=== PATIENT | male | born 1950 | race Caucasian/White ===

== ENCOUNTER → 2016-03-10 | Outpatient (CLI) | payer MEDICARE, OTHER ==
--- NOTE | 2016-03-10 17:09 | MR ---
EXAMINATION TYPE: MR femur/thigh RT wo con DATE OF EXAM: 03/10/2016 12:07 PM COMPARISON: None available HISTORY: 66-year-old male Other osteomyelitis, lower leg, right. Stump. TECHNIQUE: Multiplanar, multisequence images of the right femur were obtained. IV contrast was not ad ministered as the patient was in extreme pain and unable to complete the exam. FINDINGS: There is right above the knee amputation. There is some soft tissue irregularity with abnormal soft t issue thickening seen along the mid to posterior margin of the stump extending from the skin surface down to the underlying osteotomy margin. Axial images suggest anterior cortical loss along the distal femur. There is underlying abnormal T1 w eighted low signal and irregular low T1 weighted signal extending within the intramedullary cavity to the mid femoral shaft level. Corresponding increased T2 signal within the intramedullary space. Ther e is extensive edematous change within the surrounding soft tissues and musculature of the quadriceps extending up to the lateral aspect of the subtrochanteric level. Along the lateral aspect of the osteotomy margin adjacent to the apparent cortical loss, series 601 a xial image 4, there may be some subperiosteal abscess formation measuring 1.7 cm AP dimension. More c onfluent areas of soft tissue edema and fluid are present along the mid to distal third femoral shaft . IMPRESSION: 1. Right-sided AKA with suggestion of some ulceration along the mid to posterior aspect of the stump. Abnormal soft tissue signal extends deep to the underlying osteotomy margin where there is cortical bone loss highly suggestive of osteomyelitis. 2. Abnormal marrow signal extends up the right femur to the mid shaft level suggesting contiguous inf ection and there may be a small 1.7 cm periosteal abscess near the lateral osteotomy margin. 3. Some confluent areas of fluid along the distal third femoral shaft probably reactive to adjacent i nfection. 4. Prominent myositis, reactive vs infectious, of the quadriceps musculature extending up to the late ral subtrochanteric level.
== END | disposition home or self-care (01) ==
LOC: RADMRIMAIN 11:10
PROVIDERS: ATTEND Surgery Vascular Surgery
DX: M60.861 Other myositis, right lower leg (principal)

== ENCOUNTER → 2016-04-03 | Outpatient (CLI) | payer MEDICARE, OTHER | END | disposition home or self-care (01) | LOC: LABWHC1 13:50 | PROVIDERS: ATTEND Surgery Vascular Surgery | DX: Z01.818 Encounter for other preprocedural examination (principal) | CPT/HCPCS: 36415; 93005 ==

== ENCOUNTER 2018-03-15 15:44 | Inpatient (IN) | payer MEDICARE, OTHER ==
[2018-03-15] MEDS ORDERED: MAGNESIUM SULFATE-D5W PMX 1 GM in DEXTROSE/WATER 1 100ML.BAG IVPB STA (16:09)
[2018-03-15] MEDS ORDERED: AZITHROMYCIN 500 MG in SODIUM CHLORIDE 0.9% 250 ML IVPB STA (16:09)
[2018-03-15] MEDS ORDERED: ALBUTEROL NEBULIZED 2.5 MG/3 ML INHALATION STA ×3 (16:09→21:22)
[2018-03-15] MEDS ORDERED: IPRATROPIUM 0.5 MG/2.5 ML NEBU INHALATION STA ×3 (16:09→21:22)
[2018-03-15] MEDS ORDERED: SODIUM CHLORIDE 0.9% 1,000 ML IV STA (16:09)
--- NOTE | 2018-03-15 16:21 | ED ---
General Adult HPI - General Chief complaint: Shortness of Breath Stated complaint: Diff breathing Time Seen by Provider: 03/15/18 15:53 Source: patient Mode of arrival: wheelchair Limitations: no limitations - History of Present Illness Initial comments: Dictation was produced using [employer] dictation software. please excuse any grammatical, word or spelling errors. Chief Complaint: 68-year-old male presents with 2 days of worsening shortness of breath. History of Present Illness: Patient is 68-year-old male. Patient's chronic tobacco user. Patient states that 2-3 days ago he began having severe shortness of breath. Today, worse prompting him to call the emergency department. Patient states that his son came home with a unspecified pulmonary infection. HPI Limited secondary to acute respiratory distress. Patient denies any pain complaints at this time. Unable to obtain givenacuterespiratorydistress. PHYSICAL EXAM: General Impression: Alert and oriented x3, in severe respiratory distress HEENT: Normocephalic atraumatic, extra-ocular movements intact, pupils equal and reactive to light bilaterally, dry mucous membranes Cardiovascular: Heart regular rate and rhythm, S1&S2 audible, no murmurs, rubs or gallops Chest: Severely diminished lung sounds bilaterally Abdomen: Bowel sounds present, abdomen soft, non-tender, non-distended, no organomegaly Musculoskeletal: no peripheral edema Motor: Moves all extremities grossly. Right lower extremity amputation Neurological: CN II-XII grossly intact, no focal motor or sensory deficits noted Skin: Intact with no visualized rashes ED course: 68-year-old male presents with severe respiratory distress. Signs upon arrival shows respiratory rate of 134. Patient is 70s on room air. He is 92 with 15 L nonrebreather. Hemodynamically stable. Patient having severe retractions. Patient placed immediately on BiPAP. EMS provide patient with a breathing treatment however unable to tolerate secondary to severe respiratory distress. Rapid portable chest x-ray obtained there is no evidence of pneumothoraces. There is some blunting of bilateral costophrenic angles. Patient given breathing treatment, magnesium, steroids patient given 500 mg of azithromycin.Laboratory evaluation obtained. Leukocytosis of 14.7. Rest of CBC unremarkable. Coag panel unremarkable. D-dimer 1.83. Venous blood gas shows pH of 7.41, pCO2 29, bicarb of 18. Metabolic panel was obtained. Patient had a mild anion gap acidosis. Sodium 136. No elevation of renal markers. Creatinine kinase of 1470. Troponin 0.059. Given the patient had elevated troponin and he was started on heparin. CT angioma did not identify any pulmonary emboli. He did have mild ascending aortic aneurysm. Discussed patient case with radiologist hone operator Dr. Escobar for concerns of ascending aortic aneurysm under pulmonary emboli protocol. Radiologist did not feel that patient's imaging studies reflected aortic dissection. Patient given 3 breathing treatments [id number]. Patient appears much more comfortable. He is moving all beats still wheezing. Given that patient still showing signs of respiratory distress we will place him in the intensive care unit for respiratory support and intensive care management. Discussed patient case with Vanessa nurse practitioner for [facility] who requests Dr. Gardiner as a larry car operator. Discussed patient case with Dr. Gardiner who is willing to accept the patient to the intensive care unit. EKG interpretation: Ventricular rate 124, sinus tachycardia, AL interval 162, care is 82, QTc 436. No AL prolongation, no QTC prolongation, no ST or T-wave changes noted. . Overall, this EKG is unremarkable - Related Data Home Medications Medication Instructions Recorded Confirmed Albuterol Inhaler [Ventolin Hfa 2 puff INHALATION RT-Q4H PRN 09/12/15 03/15/18 Inhaler] Albuterol Nebulized [Ventolin 2.5 mg INHALATION RT-QID PRN 03/15/18 03/15/18 Nebulized] Fluticasone/Salmeterol [Advair 1 puff INHALATION RT-BID 03/15/18 03/15/18 500-50 Diskus] Nystatin 100,000 Unit/ml Susp 500,000 unit PO QID 03/15/18 03/15/18 [Mycostatin Oral Susp] Umeclidinium [place] [Incruse 1 puff INHALATION RT-DAILY 03/15/18 03/15/18 Ellipta] Allergies Allergy/AdvReac Type Severity Reaction Status Date / Time mesalamine [From Asacol] AdvReac Nausea & Verified 03/13/16 14:21 Vomiting & Diarrhea metronidazole [From Flagyl] AdvReac Nausea & Verified 03/13/16 14:21 Vomiting & Diarrhea Review of Systems ROS Statement: Those systems with pertinent positive or pertinent negative responses have been documented in the HPI. ROS Other: All systems not noted in ROS Statement are negative. Past Medical History Past Medical History: Deep Vein Thrombosis (DVT), GI Bleed Additional Past Medical History / Comment(s): colitis, recurring hernias, broken back,rt.stump wound History of Any Multi-Drug Resistant Organisms: None Reported Past Surgical History: Hernia Repair Additional Past Surgical History / Comment(s): right AKA, left inguinal hernia sx, IVC filter Past Anesthesia/Blood Transfusion Reactions: No Reported Reaction Past Psychological History: No Psychological Hx Reported Smoking Status: Former smoker Past Alcohol Use History: None Reported Past Drug Use History: None Reported - Past Family History Father Additional Family Medical History / Comment(s): artificial heart valves, rheumatic fever. General Exam Limitations: no limitations Course Vital Signs 03/15/18 03/15/18 03/15/18 15:46 15:50 16:00 Temperature 98.2 F Pulse Rate 134 H Respiratory 18 24 24 Rate Blood Pressure 142/115 142/115 O2 Sat by Pulse 73 L 83 L 98 Oximetry 03/15/18 03/15/18 03/15/18 16:10 16:15 16:20 Temperature Pulse Rate 135 H 141 H 144 H Respiratory 28 H 46 H 26 H Rate Blood Pressure 126/101 126/101 O2 Sat by Pulse 97 98 Oximetry 03/15/18 03/15/18 03/15/18 16:30 16:32 16:40 Temperature Pulse Rate 144 H Respiratory 22 Rate Blood Pressure 126/101 136/107 O2 Sat by Pulse 98 97 Oximetry 03/15/18 03/15/18 03/15/18 16:43 16:50 17:00 Temperature Pulse Rate 144 H 142 H 147 H Respiratory Rate Blood Pressure 136/107 136/107 O2 Sat by Pulse 97 95 Oximetry 03/15/18 03/15/18 03/15/18 17:10 17:20 17:23 Temperature Pulse Rate 151 H 141 H 140 H Respiratory 39 H Rate Blood Pressure 125/94 125/94 O2 Sat by Pulse 94 L 98 Oximetry 03/15/18 03/15/18 03/15/18 17:30 17:40 17:50 Temperature Pulse Rate 141 H Respiratory Rate Blood Pressure 125/94 123/90 123/90 O2 Sat by Pulse 96 95 96 Oximetry 03/15/18 03/15/18 03/15/18 17:57 18:00 18:13 Temperature Pulse Rate 156 H 125 H 132 H Respiratory 45 H 41 H Rate Blood Pressure 123/90 O2 Sat by Pulse 95 Oximetry 03/15/18 03/15/18 03/15/18 18:30 18:34 18:46 Temperature Pulse Rate 126 H 149 H 132 H Respiratory 43 H 34 H Rate Blood Pressure 104/91 O2 Sat by Pulse Oximetry 03/15/18 03/15/18 18:55 19:00 Temperature Pulse Rate 124 H 123 H Respiratory 34 H Rate Blood Pressure 110/96 O2 Sat by Pulse 98 Oximetry Medical Decision Making - Lab Data Result diagrams: 03/15/18 17:10 03/15/18 17:10 Lab Results 03/15/18 03/15/18 03/15/18 Range/Units 17:10 17:10 17:10 WBC 14.7 H (3.8-10.6) k/uL RBC 5.59 (4.30-5.90) m/uL Hgb 16.4 (13.0-17.5) gm/dL Hct 51.6 (39.0-53.0) % MCV 92.4 (80.0-100.0) fL MCH 29.3 (25.0-35.0) pg MCHC 31.7 (31.0-37.0) g/dL RDW 14.9 (11.5-15.5) % Plt Count 177 (150-450) k/uL Neutrophils % 94 % Lymphocytes % 3 % Monocytes % 2 % Eosinophils % 0 % Basophils % 0 % Neutrophils # 13.8 H (1.3-7.7) k/uL Lymphocytes # 0.4 L (1.0-4.8) k/uL Monocytes # 0.3 (0-1.0) k/uL Eosinophils # 0.1 (0-0.7) k/uL Basophils # 0.0 (0-0.2) k/uL PT 11.2 (9.0-12.0) sec INR 1.1 (<1.2) APTT 23.1 (22.0-30.0) sec D-Dimer 1.83 H (<0.60) mg/L FEU VBG pH 7.41 (7.31-7.41) VBG pCO2 29 L (37-51) mmHg VBG HCO3 18 L (24-28) mmol/L Sodium (137-145) mmol/L Potassium (3.5-5.1) mmol/L Chloride (98-107) mmol/L Carbon Dioxide (22-30) mmol/L Anion Gap mmol/L BUN (9-20) mg/dL Creatinine (0.66-1.25) mg/dL Est GFR (CKD-EPI)AfAm (>60 ml/min/1.73 sqM) Est GFR (CKD-EPI)NonAf (>60 ml/min/1.73 sqM) Glucose (74-99) mg/dL Plasma Lactic Acid Lambert (0.7-2.0) mmol/L Calcium (8.4-10.2) mg/dL Magnesium (1.6-2.3) mg/dL Total Bilirubin (0.2-1.3) mg/dL AST (17-59) U/L ALT (21-72) U/L Alkaline Phosphatase (38-126) U/L Total Creatine Kinase (55-170) U/L CK-MB (CK-2) (0.0-2.4) ng/mL CK-MB (CK-2) Rel Index Troponin I (0.000-0.034) ng/mL NT-Pro-B Natriuret Pep pg/mL Total Protein (6.3-8.2) g/dL Albumin (3.5-5.0) g/dL 03/15/18 03/15/18 03/15/18 Range/Units 17:10 17:10 18:10 WBC (3.8-10.6) k/uL RBC (4.30-5.90) m/uL Hgb (13.0-17.5) gm/dL Hct (39.0-53.0) % MCV (80.0-100.0) fL MCH (25.0-35.0) pg MCHC (31.0-37.0) g/dL RDW (11.5-15.5) % Plt Count (150-450) k/uL Neutrophils % % Lymphocytes % % Monocytes % % Eosinophils % % Basophils % % Neutrophils # (1.3-7.7) k/uL Lymphocytes # (1.0-4.8) k/uL Monocytes # (0-1.0) k/uL Eosinophils # (0-0.7) k/uL Basophils # (0-0.2) k/uL PT (9.0-12.0) sec INR (<1.2) APTT (22.0-30.0) sec D-Dimer (<0.60) mg/L FEU VBG pH (7.31-7.41) VBG pCO2 (37-51) mmHg VBG HCO3 (24-28) mmol/L Sodium 136 L (137-145) mmol/L Potassium 4.7 (3.5-5.1) mmol/L Chloride 105 (98-107) mmol/L Carbon Dioxide 19 L (22-30) mmol/L Anion Gap 12 mmol/L BUN 21 H (9-20) mg/dL Creatinine 0.61 L (0.66-1.25) mg/dL Est GFR (CKD-EPI)AfAm >90 (>60 ml/min/1.73 sqM) Est GFR (CKD-EPI)NonAf >90 (>60 ml/min/1.73 sqM) Glucose 78 (74-99) mg/dL Plasma Lactic Acid Lambert (0.7-2.0) mmol/L Calcium 8.7 (8.4-10.2) mg/dL Magnesium 2.0 (1.6-2.3) mg/dL Total Bilirubin 1.5 H (0.2-1.3) mg/dL AST 58 (17-59) U/L ALT 37 (21-72) U/L Alkaline Phosphatase 63 (38-126) U/L Total Creatine Kinase 1470 H* (55-170) U/L CK-MB (CK-2) 7.8 H (0.0-2.4) ng/mL CK-MB (CK-2) Rel Index 0.5 Troponin I 0.059 H* (0.000-0.034) ng/mL NT-Pro-B Natriuret Pep 451 pg/mL Total Protein 6.6 (6.3-8.2) g/dL Albumin 3.7 (3.5-5.0) g/dL 03/15/18 Range/Units 19:04 WBC (3.8-10.6) k/uL RBC (4.30-5.90) m/uL Hgb (13.0-17.5) gm/dL Hct (39.0-53.0) % MCV (80.0-100.0) fL MCH (25.0-35.0) pg MCHC (31.0-37.0) g/dL RDW (11.5-15.5) % Plt Count (150-450) k/uL Neutrophils % % Lymphocytes % % Monocytes % % Eosinophils % % Basophils % % Neutrophils # (1.3-7.7) k/uL Lymphocytes # (1.0-4.8) k/uL Monocytes # (0-1.0) k/uL Eosinophils # (0-0.7) k/uL Basophils # (0-0.2) k/uL PT (9.0-12.0) sec INR (<1.2) APTT (22.0-30.0) sec D-Dimer (<0.60) mg/L FEU VBG pH (7.31-7.41) VBG pCO2 (37-51) mmHg VBG HCO3 (24-28) mmol/L Sodium (137-145) mmol/L Potassium (3.5-5.1) mmol/L Chloride (98-107) mmol/L Carbon Dioxide (22-30) mmol/L Anion Gap mmol/L BUN (9-20) mg/dL Creatinine (0.66-1.25) mg/dL Est GFR (CKD-EPI)AfAm (>60 ml/min/1.73 sqM) Est GFR (CKD-EPI)NonAf (>60 ml/min/1.73 sqM) Glucose (74-99) mg/dL Plasma Lactic Acid Lambert 1.2 (0.7-2.0) mmol/L Calcium (8.4-10.2) mg/dL Magnesium (1.6-2.3) mg/dL Total Bilirubin (0.2-1.3) mg/dL AST (17-59) U/L ALT (21-72) U/L Alkaline Phosphatase (38-126) U/L Total Creatine Kinase (55-170) U/L CK-MB (CK-2) (0.0-2.4) ng/mL CK-MB (CK-2) Rel Index Troponin I (0.000-0.034) ng/mL NT-Pro-B Natriuret Pep pg/mL Total Protein (6.3-8.2) g/dL Albumin (3.5-5.0) g/dL Critical Care Time Critical Care Time: Yes Total Critical Care Time: 31 Disposition Clinical Impression: COPD exacerbation, Respiratory failure Disposition: ADMITTED IP TO THIS HOSP Condition: Critical Referrals: Stacy Foy MD [Primary Care Provider] - 1-2 days Decision Time: 21:33
--- NOTE | 2018-03-15 16:27 | XR ---
EXAMINATION TYPE: XR chest 1V portable DATE OF EXAM: 03/15/2018 COMPARISON: NONE HISTORY: Difficulty in breathing. TECHNIQUE: Single AP portable frontal upright view of the chest is obtained. FINDINGS: There is chronic emphysematous change with increased interstitial markings in both mid govind gs and basilar regions. There is no focal air space opacity or pneumothorax seen bilaterally. There i s small right pleural effusion or pleural thickening. The cardiac silhouette size is within normal li mits with atherosclerotic change in aortic knob. The osseous structures are somewhat demineralized. IMPRESSION: Chronic emphysematous and parenchymal change is felt present bilaterally with small righ t pleural effusion suspected. No convincing evidence for suspicious acute infiltrate. Correlation wit h old outside x-ray would be beneficial.
[2018-03-15] MEDS ORDERED: LORazepam 2 MG/ML INJ IV STA ×2 (16:33→18:12)
[2018-03-15] MEDS ORDERED: DEXAMETHASONE SOD PHOSPHATE 10 MG/ML 1 ML VIAL IV STA (17:18)
[2018-03-15 17:23] LABS: Basophils % (A) 0 %; Eosinophils # (A) 0.1 k/uL (0-0.7); Eosinophils % (A) 0 %; HCT 51.6 % (39.0-53.0); HGB 16.4 gm/dL (13.0-17.5); Lymphocytes # (A) 0.4 k/uL (1.0-4.8); Lymphocytes % (A) 3 %; MCH 29.3 pg (25.0-35.0); MCHC 31.7 g/dL (31.0-37.0); MCV 92.4 fL (80.0-100.0); Mean Platelet Volume 6.5; Monocytes # (A) 0.3 k/uL (0-1.0); Monocytes % (A) 2 %; Neutrophils # (A) 13.8 k/uL (1.3-7.7); Neutrophils % (A) 94 %; Platelet Count 177 k/uL (150-450); RBC 5.59 m/uL (4.30-5.90); RDW 14.9 % (11.5-15.5); WBC 14.7 k/uL (3.8-10.6)
[2018-03-15 17:25] LABS: VBG PH 7.41 (7.31-7.41)
[2018-03-15 17:35] LABS: INR 1.1 (<1.2); Partial Thromboplastin Time 23.1 sec (22.0-30.0); Prothrombin Time 11.2 sec (9.0-12.0)
[2018-03-15 17:40] LABS: D-Dimer 1.83 mg/L FEU (<0.60)
[2018-03-15 17:58] LABS: ALT 37 U/L (21-72); AST 58 U/L (17-59); Albumin 3.7 g/dL (3.5-5.0); Alkaline Phosphatase 63 U/L (38-126); Anion Gap 12 mmol/L; Blood Urea Nitrogen 21 mg/dL (9-20); Calcium 8.7 mg/dL (8.4-10.2); Carbon Dioxide 19 mmol/L (22-30); Chloride 105 mmol/L (98-107); Glucose 78 mg/dL (74-99); Potassium 4.7 mmol/L (3.5-5.1); Sodium 136 mmol/L (137-145); Total Bilirubin 1.5 mg/dL (0.2-1.3); Total Protein 6.6 g/dL (6.3-8.2)
[2018-03-15 18:56] LABS: Creatine Kinase MB 7.8 ng/mL (0.0-2.4); Troponin I 0.059 ng/mL (0.000-0.034)
[2018-03-15] MEDS ORDERED: HEPARIN SODIUM,PORCINE 5,000 UNIT/ML 1 ML VIAL IV PRN (19:23)
[2018-03-15] MEDS ORDERED: HEPARIN SODIUM,PORCINE 10,000 UNIT/ML 1 ML VIAL IV ONE ×2 (19:23)
[2018-03-15] MEDS ORDERED: HEPARIN SOD,PORK IN 0.45% NACL 25,000 UNIT in 0.45% NACL 1 250ML.BAG IV SCH (19:30)
[2018-03-15] MEDS ORDERED: MORPHINE SULFATE 4 MG/ML SYRINGE IVP STA (21:13)
--- NOTE | 2018-03-15 21:17 | CT ---
EXAMINATION TYPE: CT angio chest DATE OF EXAM: 03/15/2018 8:46 PM COMPARISON: None HISTORY: SOB CT DLP: 455.4 mGycm Automated exposure control for dose reduction was used. CONTRAST: Contrast and with 3-D Reconstruction renderingCTA scan of the thorax is performed with IV C ontrast, patient injected with 75cc mL of Isovue 370, pulmonary embolism protocol. 3-D reconstructio ns. FINDINGS: AIRWAYS: Unremarkable. LUNGS: There are marked emphysematous changes no acute pulmonary findings PLEURAL SPACES: Negative. MEDIASTINUM: There is satisfactory enhancement of the pulmonary artery and its branches, there is no CT evidence for pulmonary embolism. No acute aortic findings, but the ascending aorta is mildly aneur ysmal measuring 4.1 cm caliber. There are no greater than 1 cm hilar or mediastinal lymph nodes. The re is no cardiomegaly or pericardial effusion. Moderately prominent coronary calcifications are prese nt. No adenopathy OTHER: No additional significant abnormality is seen. IVC caval filter noted. IMPRESSION: 1) NO ACUTE PROCESS. 2) MILD ANEURYSMAL DILATION OF THE ASCENDING AORTA. 3) CORONARY CALCIFICATIONS. 4) PROMINENT EMPHYSEMATOUS CHANGES.
[2018-03-15] MEDS ORDERED: MORPHINE SULFATE 4 MG/ML SYRINGE IM STA (21:19)
[2018-03-15] MEDS ORDERED: ASPIRIN 81 MG PO STA (21:30)
[2018-03-15] MEDS ORDERED: NALOXONE 0.4 MG/ML 1 ML VIAL IV PRN (21:33)
[2018-03-15] MEDS: HEPARIN SOD,PORK IN 0.45% NACL 25,000 UNIT in 0.45% NACL 1 250ML.BAG IV SCH (22:17)
[2018-03-16] MEDS: methylPREDNISolone SOD SUCCI 125 MG/2 ML VIAL IV SCH ×4 (02:03→18:55)
[2018-03-16] MEDS: SODIUM CHLORIDE 0.9% 1,000 ML IV SCH ×4 (02:04→22:50)
[2018-03-16] MEDS: IPRATROPIUM-ALBUTEROL 3 ML NEB INHALATION SCH ×4 (07:13→19:33)
[2018-03-16] MEDS: BUDESONIDE 0.5 MG/2 ML NEBU INHALATION SCH ×2 (07:13→19:33)
[2018-03-16] MEDS: AZITHROMYCIN 500 MG TAB PO SCH (11:09)
[2018-03-16] MEDS: FAMOTIDINE 20 MG/2 ML VIAL IV SCH ×2 (11:09→21:59)
--- NOTE | 2018-03-16 11:23 | P.HPIM ---
History of Present Illness Chief Complaint: Shortness of breath Very pleasant [id number] gentleman with a past medical history significant for COPD, comes in for above-mentioned complaints. At the time examination the patient was in the ER. He was on BiPAP. He was alert and oriented. He says that he started having symptoms of shortness of breath and cough about 2-3 days ago. He said that he got up from his son who at the same infection and the same symptoms. Yesterday the shortness of breath and cough became worse so much so that he was not able to breathe. He does call the ambulance and came to the ER for further evaluation and management. The patient says that the cough is productive of yellowish green phlegm. He does not complain of any fever or chills at home. He does not complain of any chest pain racing heart, no abdominal pain, no nausea and vomiting, no diarrhea constipation, no tingling numbness on in the extremities, no itch no rash. Patient says that he has a history of smoking long time ago but is not smoking anymore. ER course-water showed temperature 98.2 pulse 97 respiration 22 blood pressure 90/70. lab work showed WBC 14.7 hemoglobin 16.4 platelets 177 sodium 136 potassium 4.7 B1 21 creatinine 0.61 CPK level was 1470 troponin level was 0.059. CTA of the chest was done which showed no acute process, mild aneurysmal dilation of the ascending aorta, coronary calcification, prominent emphysematous changes. Patient was given antibiotics, breathing treatments, steroids, IV fluids and admitted to the hospitalist service for further evaluation and management Review of Systems All systems: negative Past Medical History Past Medical History: Deep Vein Thrombosis (DVT), GI Bleed Additional Past Medical History / Comment(s): colitis, recurring hernias, broken back,rt.stump wound History of Any Multi-Drug Resistant Organisms: None Reported Past Surgical History: Hernia Repair Additional Past Surgical History / Comment(s): right AKA, left inguinal hernia sx, IVC filter Past Anesthesia/Blood Transfusion Reactions: No Reported Reaction Past Psychological History: No Psychological Hx Reported Smoking Status: Former smoker Past Alcohol Use History: None Reported Past Drug Use History: None Reported - Past Family History Father Additional Family Medical History / Comment(s): artificial heart valves, rheumatic fever. Medications and Allergies Home Medications Medication Instructions Recorded Confirmed Type Albuterol Inhaler [Ventolin Hfa 2 puff INHALATION RT-Q4H PRN 09/12/15 03/15/18 History Inhaler] Albuterol Nebulized [Ventolin 2.5 mg INHALATION RT-QID PRN 03/15/18 03/15/18 History Nebulized] Fluticasone/Salmeterol [Advair 1 puff INHALATION RT-BID 03/15/18 03/15/18 History 500-50 Diskus] Nystatin 100,000 Unit/ml Susp 500,000 unit PO QID 03/15/18 03/15/18 History [Mycostatin Oral Susp] Umeclidinium [place] [Incruse 1 puff INHALATION RT-DAILY 03/15/18 03/15/18 History Ellipta] Allergies Allergy/AdvReac Type Severity Reaction Status Date / Time mesalamine [From Asacol] AdvReac Nausea & Verified 03/13/16 14:21 Vomiting & Diarrhea metronidazole [From Flagyl] AdvReac Nausea & Verified 03/13/16 14:21 Vomiting & Diarrhea Physical Exam Vitals: Vital Signs Temp Pulse Resp BP Pulse Ox 03/16/18 09:00 88 18 131/84 97 03/16/18 08:00 115 H 18 109/83 98 03/16/18 07:44 107 H 03/16/18 07:13 97 03/16/18 06:00 97 93/70 98 03/16/18 05:00 79 108/86 98 03/16/18 04:01 90 108/86 98 03/16/18 03:00 99 104/85 98 03/16/18 02:00 90 99/73 98 03/16/18 01:56 86 22 03/16/18 01:55 89 99/73 98 03/16/18 01:40 84 21 03/15/18 21:38 104 H 23 119/89 97 03/15/18 20:00 106 H 115/88 98 03/15/18 19:04 120 H 124/92 98 03/15/18 19:00 123 H 110/96 98 03/15/18 18:55 124 H 34 H 03/15/18 18:46 132 H 34 H 03/15/18 18:34 149 H 43 H 03/15/18 18:30 126 H 104/91 03/15/18 18:13 132 H 41 H 03/15/18 18:00 125 H 123/90 95 03/15/18 17:57 156 H 45 H 03/15/18 17:50 123/90 96 03/15/18 17:40 141 H 123/90 95 03/15/18 17:30 125/94 96 03/15/18 17:23 140 H 39 H 03/15/18 17:20 141 H 125/94 98 03/15/18 17:10 151 H 125/94 94 L 03/15/18 17:00 147 H 136/107 95 03/15/18 16:50 142 H 136/107 97 03/15/18 16:43 144 H 03/15/18 16:40 136/107 97 03/15/18 16:32 144 H 03/15/18 16:30 22 126/101 98 03/15/18 16:20 144 H 26 H 126/101 98 03/15/18 16:15 141 H 46 H 03/15/18 16:10 135 H 28 H 126/101 97 03/15/18 16:00 24 142/115 98 03/15/18 15:50 24 83 L 03/15/18 15:46 98.2 F 134 H 18 142/115 73 L Intake and Output 03/15/18 03/16/18 03/16/18 22:59 06:59 14:59 Other: Weight 60.419 kg On exam, alert and oriented x3. HEENT: Conjunctivae normal. eyes normal. NECK: No JVD. No thyroid enlargement. No LNs CARDIOVASCULAR: S1, S2 muffled. No murmur RESPIRATION: Is having rhonchi appreciated bilaterally posteriorly. ABDOMEN: Soft, nontender . No guarding. no masses palpable. No ascites, No hepatosplenomegaly.Bowel sounds heard. LEGS: He has a right AKA. No swelling on the left NERVOUS SYSTEM: Cranial N 2-12 grossly normal. Moves all 4 limbs. No focal deficits. No sensory deficit. No signs of cerebellar dysfucntion. Skin: no ulcer no rash Results CBC & Chem 7: 03/15/18 17:10 03/15/18 17:10 Labs: Abnormal Lab Results - Last 24 Hours (Table) 03/15/18 03/15/18 03/15/18 Range/Units 17:10 17:10 17:10 WBC 14.7 H (3.8-10.6) k/uL Neutrophils # 13.8 H (1.3-7.7) k/uL Lymphocytes # 0.4 L (1.0-4.8) k/uL D-Dimer 1.83 H (<0.60) mg/L FEU VBG pCO2 29 L (37-51) mmHg VBG HCO3 18 L (24-28) mmol/L Sodium (137-145) mmol/L Carbon Dioxide (22-30) mmol/L BUN (9-20) mg/dL Creatinine (0.66-1.25) mg/dL Total Bilirubin (0.2-1.3) mg/dL Total Creatine Kinase (55-170) U/L CK-MB (CK-2) (0.0-2.4) ng/mL Troponin I (0.000-0.034) ng/mL 03/15/18 03/15/18 Range/Units 17:10 18:10 WBC (3.8-10.6) k/uL Neutrophils # (1.3-7.7) k/uL Lymphocytes # (1.0-4.8) k/uL D-Dimer (<0.60) mg/L FEU VBG pCO2 (37-51) mmHg VBG HCO3 (24-28) mmol/L Sodium 136 L (137-145) mmol/L Carbon Dioxide 19 L (22-30) mmol/L BUN 21 H (9-20) mg/dL Creatinine 0.61 L (0.66-1.25) mg/dL Total Bilirubin 1.5 H (0.2-1.3) mg/dL Total Creatine Kinase 1470 H* (55-170) U/L CK-MB (CK-2) 7.8 H (0.0-2.4) ng/mL Troponin I 0.059 H* (0.000-0.034) ng/mL Assessment and Plan Assessment: Assessment - Acute respiratory failure - Acute COPD exacerbation causing respiratory failure - Rhabdomyolysis - Leukocytosis - Indeterminate troponin levels - History of DVT and GI bleed - History of colitis - History of right AKA - History of IVC filter placement Plan - We'll admit the patient ICU - Patient is on BiPAP we'll continue that. Pulmonology consulted. - Continue breathing treatments, steroids, antibiotics. - Patient's CPK levels are high. We'll continue IV fluids. We'll repeat the CPK levels - Also his troponin levels are indeterminate. Will monitor troponin levels and if high high we'll consult cardiology - We'll order for echocardiogram - Resume the patient's home medications - DVT and GI prophylaxis - We'll order for lab work in the morning - Expected length of stay more than 2 midnights - Patient is full code Time with Patient: Greater than 30
[2018-03-16 12:26] LABS: Basophils % (A) 0 %; Eosinophils % (A) 0 %; HCT 44.6 % (39.0-53.0); HGB 14.5 gm/dL (13.0-17.5); Lymphocytes # (A) 0.3 k/uL (1.0-4.8); Lymphocytes % (A) 4 %; MCH 29.7 pg (25.0-35.0); MCHC 32.6 g/dL (31.0-37.0); MCV 91.3 fL (80.0-100.0); Mean Platelet Volume 6.7; Monocytes # (A) 0.2 k/uL (0-1.0); Monocytes % (A) 2 %; Neutrophils # (A) 7.7 k/uL (1.3-7.7); Neutrophils % (A) 93 %; Platelet Count 166 k/uL (150-450); RBC 4.88 m/uL (4.30-5.90); RDW 14.8 % (11.5-15.5); WBC 8.3 k/uL (3.8-10.6)
[2018-03-16 12:37] LABS: Anion Gap 8 mmol/L; Blood Urea Nitrogen 25 mg/dL (9-20); Calcium 8.6 mg/dL (8.4-10.2); Carbon Dioxide 26 mmol/L (22-30); Chloride 105 mmol/L (98-107); Creatine Kinase 738 U/L (55-170); Glucose 99 mg/dL (74-99); Potassium 4.8 mmol/L (3.5-5.1); Sodium 139 mmol/L (137-145)
[2018-03-16 13:33] LABS: ABG Base Excess -1.1 mmol/L; ABG HCO3 24 mmol/L (21-25); ABG Oxygen Saturation 99.8 % (94-97); ABG PCO2 43 mmHg (35-45); ABG PH 7.36 (7.35-7.45); ABG PO2 188 mmHg (83-108); ABG TCO2 26 mmol/L (19-24)
--- NOTE | 2018-03-16 15:26 | P.CNPUL ---
History of Present Illness Consult date: 03/16/18 Reason for consult: dyspnea, COPD History of present illness: This is a 68-year-old male patient with known history of COPD [place] more than approximately 4 years ago. 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 The patient has advanced COPD. The patient has been oxygen dependent for many years. He has been on a combination of Advair and Incrus regarding his COPD and utilizes albuterol rescue inhaler on an as-needed basis. He is known to have ulcerative colitis and he has received several bouts of systemic steroids on outpatient basis regarding his colitis. He is not take any form of biologic agents or maintenance agents regarding his inflammatory bowel disease. 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 He claims that he quit smoking approximately a month ago. He came into the hospital because of increased cough , chest congestion, chest tightness and wheezing and he was in considerable amount of respiratory distress at time of arrival. He was placed on BiPAP at a pressure of 12/6 cm of water and FiO2 of 40%. He is feeling better. Is less short of breath. At the time of my arrival, he was still a mild degree of respiratory distress although reported that his condition was improving. Blood gases was done in emergency department with an FiO2 of 50% while him being on a BiPAP and the pH was at 7.36 with a pCO2 of 43 and pO2 of 188. Chest x-ray shows COPD and the CAT scan of the chest showed no evidence of any pulmonary embolism. 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 There was coronary calcifications. There is extensive amount of emphysematous changes bilaterally. No nausea. No vomiting. No abdominal pain. No altered mentation. No angina. No palpitation. No cardiac rhythm disturbance. Review of Systems Constitutional: Reports fatigue, Reports weakness, Reports weight loss Eyes: denies as per HPI, denies blurred vision, denies bulging eye, denies decreased vision, denies diplopia, denies discharge, denies dry eye, denies irritation, denies itching, denies pain, denies photophobia, denies loss of peripheral vision, denies loss of vision, denies tunnel vision/blind spots Ears: deny: decreased hearing, ear discharge, earache, tinnitus Ears, nose, mouth and throat: Denies headache, Denies sore throat Cardiovascular: Reports claudication, Reports decreased exercise tolerance, Reports dyspnea on exertion, Reports shortness of breath Respiratory: Reports cough, Reports dyspnea, Reports wheezing Gastrointestinal: Denies abdominal pain, Denies diarrhea, Denies nausea, Denies vomiting Genitourinary: Reports as per HPI Musculoskeletal: Reports as per HPI, Reports prior amputations Musculoskeletal: left: ankle pain, ankle stiffness, ankle swelling, as per HPI, elbow pain, elbow stiffness, elbow swelling, foot pain, foot stiffness, foot swelling, hand pain, hand stiffness, hand swelling, hip pain, hip stiffness, hip swelling, knee pain, knee stiffness, knee swelling, shoulder pain, shoulder stiffness, shoulder swelling, wrist pain, wrist stiffness, wrist swelling Integumentary: Denies pruritus, Denies rash Neurological: Reports as per HPI, Reports gait dysfunction Psychiatric: Reports as per HPI Endocrine: Reports as per HPI Hematologic/Lymphatic: Reports as per HPI Allergic/Immunologic: Reports as per HPI Past Medical History Past Medical History: COPD, GI Bleed Additional Past Medical History / Comment(s): COPD, ulcerative colitis, right inguinal hernia and umbilical hernia, chronic steroid dependence for UC, L2,3,4 lumbar spine disease and chronic back pain, 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 History of Any Multi-Drug Resistant Organisms: None Reported Past Surgical History: Hernia Repair Additional Past Surgical History / Comment(s): right AKA, left inguinal hernia sx, IVC filter Past Anesthesia/Blood Transfusion Reactions: No Reported Reaction Past Psychological History: No Psychological Hx Reported Smoking Status: Former smoker (quit smoking 15 years ago and he has 30 PPD and he has no alcoholism) Past Alcohol Use History: None Reported Past Drug Use History: None Reported - Past Family History Father Additional Family Medical History / Comment(s): artificial heart valves, rheumatic fever. Medications and Allergies Home Medications Medication Instructions Recorded Confirmed Type Albuterol Inhaler [Ventolin Hfa 2 puff INHALATION RT-Q4H PRN 09/11/03/15/18 History Inhaler] Albuterol Nebulized [Ventolin 2.5 mg INHALATION RT-QID PRN 03/15/18 03/15/18 History Nebulized] Fluticasone/Salmeterol [Advair 1 puff INHALATION RT-BID 03/15/18 03/15/18 History 500-50 Diskus] Nystatin 100,000 Unit/ml Susp 500,000 unit PO QID 03/15/18 03/15/18 History [Mycostatin Oral Susp] Umeclidinium [place] [Incruse 1 puff INHALATION RT-DAILY 03/15/18 03/15/18 History Ellipta] Allergies Allergy/AdvReac Type Severity Reaction Status Date / Time mesalamine [From Asacol] AdvReac Nausea & Verified 03/13/16 14:21 Vomiting & Diarrhea metronidazole [From Flagyl] AdvReac Nausea & Verified 03/13/16 14:21 Vomiting & Diarrhea Physical Exam Vitals: Vital Signs Temp Pulse Resp BP Pulse Ox 03/16/18 11:57 105 H 03/16/18 11:43 105 H 03/16/18 09:00 88 18 131/84 97 03/16/18 08:00 115 H 18 109/83 98 03/16/18 07:44 107 H 03/16/18 07:13 97 03/16/18 06:00 97 93/70 98 03/16/18 05:00 79 108/86 98 03/16/18 04:01 90 108/86 98 03/16/18 03:00 99 104/85 98 03/16/18 02:00 90 99/73 98 03/16/18 01:56 86 22 03/16/18 01:55 89 99/73 98 03/16/18 01:40 84 21 03/15/18 21:38 104 H 23 119/89 97 03/15/18 20:00 106 H 115/88 98 03/15/18 19:04 120 H 124/92 98 03/15/18 19:00 123 H 110/96 98 03/15/18 18:55 124 H 34 H 03/15/18 18:46 132 H 34 H 03/15/18 18:34 149 H 43 H 03/15/18 18:30 126 H 104/91 03/15/18 18:13 132 H 41 H 03/15/18 18:00 125 H 123/90 95 03/15/18 17:57 156 H 45 H 03/15/18 17:50 123/90 96 03/15/18 17:40 141 H 123/90 95 03/15/18 17:30 125/94 96 03/15/18 17:23 140 H 39 H 03/15/18 17:20 141 H 125/94 98 03/15/18 17:10 151 H 125/94 94 L 03/15/18 17:00 147 H 136/107 95 03/15/18 16:50 142 H 136/107 97 03/15/18 16:43 144 H 03/15/18 16:40 136/107 97 03/15/18 16:32 144 H 03/15/18 16:30 22 126/101 98 03/15/18 16:20 144 H 26 H 126/101 98 03/15/18 16:15 141 H 46 H 03/15/18 16:10 135 H 28 H 126/101 97 03/15/18 16:00 24 142/115 98 03/15/18 15:50 24 83 L 03/15/18 15:46 98.2 F 134 H 18 142/115 73 L Intake and Output 03/15/18 03/16/18 03/16/18 22:59 06:59 14:59 Other: Weight 60.419 kg Patient is a mild degree of respiratory distress even while waiting the BiPAP. He however thousand and overall condition is improved since he is around the emergency department. No altered mentation. He is able to communicate. Head exam was generally normal. There was no scleral icterus or corneal arcus. Mucous membranes were moist. Neck was supple and without jugular venous distension, thyromegaly, or carotid bruits. Carotids were easily palpable bilaterally. There was no adenopathy. Lungs sounds are diminished bilaterally along with prolongation of expiratory phase of breathing and scattered expiratory wheezes throughout the lung ferro bilaterally. Cardiac exam revealed the PMI to be normally situated and sized. The rhythm was regular and no extrasystoles were noted during several minutes of auscultation. The first and second heart sounds were normal and physiologic splitting of the second heart sound was noted. There were no murmurs, rubs, clicks, or gallops. Abdominal exam revealed normal bowel sounds. The abdomen was soft, non-tender, and without masses, organomegaly, or appreciable enlargement of the abdominal aorta. Extremities revealed an above-knee amputation on the right lower extremity. Left lower extremity shows palpable pulses. No cyanosis. No clubbing. Examination of the skin revealed no evidence of significant rashes, suspicious appearing nevi or other concerning lesions. Neurologically awake and alert and is no focal neurological deficits. Results - Laboratory Findings CBC and BMP: 03/16/18 11:31 03/16/18 11:31 PT/INR, D-dimer PT 11.2 sec (9.0-12.0) 03/15/18 17:10 INR 1.1 (<1.2) 03/15/18 17:10 D-Dimer 1.83 mg/L FEU (<0.60) H 03/15/18 17:10 Abnormal lab findings: Abnormal Labs 03/15/18 03/15/18 03/15/18 17:10 17:10 17:10 WBC 14.7 H Neutrophils # 13.8 H Lymphocytes # 0.4 L D-Dimer 1.83 H VBG pCO2 29 L VBG HCO3 18 L Sodium Carbon Dioxide BUN Creatinine Total Bilirubin Total Creatine Kinase CK-MB (CK-2) Troponin I 03/15/18 03/15/18 17:10 18:10 WBC Neutrophils # Lymphocytes # D-Dimer VBG pCO2 VBG HCO3 Sodium 136 L Carbon Dioxide 19 L BUN 21 H Creatinine 0.61 L Total Bilirubin 1.5 H Total Creatine Kinase 1470 H* CK-MB (CK-2) 7.8 H Troponin I 0.059 H* - Diagnostic Findings Chest x-ray: image reviewed CT scan - chest: image reviewed Assessment and Plan Plan: Assessment 1 acute dyspnea and acute hypoxic respiratory failure secondary to COPD exacerbation. The patient's CAT scan of the chest shows no acute abnormalities aren't and COPD and the patient has no pneumonia or pulmonary embolism. Influenza screen is been negative. 2 acute BiPAP dependent respiratory failure secondary to COPD exacerbation 3 advanced COPD with chronic hypoxic respiratory failure and the patient is demented on oxygen 2 L per minute nasal cannula 4 history of above-knee and position of the right lower extremity due to vascular complications 5 history of IVC filter placement without known history of pulmonary embolism 6 history of a limit 3 bowel disease/ulcerative colitis currently not receiving any Biologics 7 previous history of GI bleeds 8 history of smoking 9 minimal troponin leak without any significant EKG changes. Plan We'll admit this patient to the intensive care unit. We'll put the patient on DuoNeb neb regimen [id number]. Continue Perforomist and Pulmicort nebulized treatments twice a day. IV Solu Medrol 60 mg every 6 hours. Oral Zithromax. Smoking cessation counseling was done. Continue fluid resuscitation. Continue BiPAP for respiratory support. We'll make further adjustments in the BiPAP if needed. For now the blood gas seems to be adequate and the patient has a adequate acid-base status and adequate oxygenation. Chest x-ray was reviewed. CT of the chest was reviewed. We'll continue to follow. The patient has some nonspecific troponin leaks. Currently the patient is on IV heparin. We'll leave the management of heparin and abnormal troponin is up to cardiology. Predominant hospitalization essentially related to COPD exacerbation. Echo of the heart will be ordered for tomorrow.
[2018-03-16] MEDS: LORazepam 2 MG/ML INJ IV PRN ×2 (15:29→20:36)
[2018-03-16] MEDS ORDERED: NALOXONE 0.4 MG/ML 1 ML VIAL IV PRN (17:40)
--- NOTE | 2018-03-16 18:06 | ECHOF ---
Referral Reason:increased trops MEASUREMENTS -------- HEIGHT: 172.7 cm WEIGHT: 60.3 kg BP: 134/84 RVIDd: 3.4 cm (< 3.3) IVSd: 1.3 cm (0.6 - 1.1) LVIDd: 3.9 cm (3.9 - 5.3) LVPWd: 1.2 cm (0.6 - 1.1) IVSs: 1.5 cm LVIDs: 2.8 cm LVPWs: 1.5 cm LA Diam: 2.3 cm (2.7 - 3.8) Ao Diam: 3.2 cm (2.0 - 3.7) AV Cusp: 2.1 cm (1.5 - 2.6) EPSS: 0.4 cm MV E Jas: 0.86 m/s MV DecT: 149 ms MV A Jas: 0.59 m/s MV E/A Ratio: 1.46 RAP: 5.00 mmHg RVSP: 44.07 mmHg MV EF SLOPE: 75.75 mm/s (70 - 150) MV EXCURSION: 2.36 cm (> 18.000) FINDINGS -------- Sinus rhythm. This was a technically adequate study. The left ventricular size is normal. There is mild concentric left ventricular hypertrophy. Overa ll left ventricular systolic function is normal with, an EF between 60 - 65 %. The right ventricle is mildly enlarged. The left atrial size is normal. The right atrium is normal in size. The aortic valve is trileaflet and appears structurally normal. The mitral valve is normal. Mild mitral regurgitation is present. [id number] tricuspid regurgitation present. There is mild pulmonary hypertension. The right ventricular systolic pressure, as measured by Doppler, is 44.07mmHg. The pulmonic valve was not well visualized. There is no pulmonic regurgitation present. The aortic root size is normal. Normal inferior vena cava with normal inspiratory collapse consistent with estimated right atrial pre ssure of 5 mmHg. There is no pericardial effusion. CONCLUSIONS -------- 1. Sinus rhythm. 2. This was a technically adequate study. 3. The left ventricular size is normal. 4. There is mild concentric left ventricular hypertrophy. 5. Overall left ventricular systolic function is normal with, an EF between 60 - 65 %. 6. The right ventricle is mildly enlarged. 7. The left atrial size is normal. 8. The aortic valve is trileaflet and appears structurally normal. 9. The mitral valve is normal. 10. Mild mitral regurgitation is present. 11. Uuay-cb-uqgaslvf tricuspid regurgitation present. 12. There is mild pulmonary hypertension. 13. The pulmonic valve was not well visualized. 14. The aortic root size is normal. 15. Normal inferior vena cava with normal inspiratory collapse consistent with estimated right atrial pressure of 5 mmHg. 16. There is no pericardial effusion. BIOINFORMATICS SUPPORT SPECIALIST: SABINA Huggins
[2018-03-16 18:17] LABS: Glucose,Whole Blood 98 mg/dL (75-99)
[2018-03-16] MEDS: FORMOTEROL FUMARATE 20 MCG/2 ML NEBU INHALATION SCH (19:33)
[2018-03-16] MEDS: HEPARIN SOD,PORK IN 0.45% NACL 25,000 UNIT in 0.45% NACL 1 250ML.BAG IV SCH (21:59)
[2018-03-16] MEDS: IPRATROPIUM-ALBUTEROL 3 ML NEB INHALATION PRN (23:17)
[2018-03-17] MEDS: methylPREDNISolone SOD SUCCI 125 MG/2 ML VIAL IV SCH ×4 (02:09→19:15)
[2018-03-17] MEDS: LORazepam 2 MG/ML INJ IV PRN ×4 (02:36→21:38)
[2018-03-17 02:50] LABS: Basophils % (A) 0 %; Eosinophils # (A) 0.1 k/uL (0-0.7); Eosinophils % (A) 0 %; HCT 41.4 % (39.0-53.0); HGB 13.6 gm/dL (13.0-17.5); Lymphocytes # (A) 0.3 k/uL (1.0-4.8); Lymphocytes % (A) 3 %; MCHC 32.9 g/dL (31.0-37.0); MCV 91.1 fL (80.0-100.0); Mean Platelet Volume 6.4; Monocytes # (A) 0.4 k/uL (0-1.0); Monocytes % (A) 3 %; Neutrophils % (A) 93 %; Platelet Count 162 k/uL (150-450); RBC 4.55 m/uL (4.30-5.90); RDW 14.9 % (11.5-15.5); WBC 11.9 k/uL (3.8-10.6)
[2018-03-17] MEDS: IPRATROPIUM-ALBUTEROL 3 ML NEB INHALATION PRN (03:17)
[2018-03-17 04:26] LABS: Anion Gap 7 mmol/L; Blood Urea Nitrogen 28 mg/dL (9-20); Calcium 8.6 mg/dL (8.4-10.2); Carbon Dioxide 24 mmol/L (22-30); Chloride 108 mmol/L (98-107); Glucose 100 mg/dL (74-99); Magnesium 2.7 mg/dL (1.6-2.3); Phosphorus 3.3 mg/dL (2.5-4.5); Potassium 4.5 mmol/L (3.5-5.1); Sodium 139 mmol/L (137-145)
[2018-03-17] MEDS: BUDESONIDE 0.5 MG/2 ML NEBU INHALATION SCH ×2 (07:15→19:39)
[2018-03-17] MEDS: IPRATROPIUM-ALBUTEROL 3 ML NEB INHALATION SCH ×4 (07:15→19:39)
[2018-03-17] MEDS: FORMOTEROL FUMARATE 20 MCG/2 ML NEBU INHALATION SCH ×2 (07:15→19:39)
[2018-03-17] MEDS: FAMOTIDINE 20 MG/2 ML VIAL IV SCH ×2 (09:11→20:09)
[2018-03-17] MEDS: AZITHROMYCIN 500 MG TAB PO SCH (09:11)
[2018-03-17] MEDS: SODIUM CHLORIDE 0.9% 1,000 ML IV SCH ×3 (09:20→23:50)
--- NOTE | 2018-03-17 09:21 | XR ---
EXAMINATION TYPE: XR chest 1V DATE OF EXAM: 03/17/2018 COMPARISON: 03/15/2018 INDICATION: COPD TECHNIQUE: Single frontal view of the chest is obtained. FINDINGS: The heart size is normal. The pulmonary vasculature is normal. Linear opacities are at the right lung base compatible with atelectasis. There is a 1.1 cm nodular de nsity in the upper outer left chest may be a granuloma present on recent chest films. There are no ol caro comparison studies for confirmation. This should be followed over the course of 2 years to confir m stability. IMPRESSION: 1. Mild plate atelectasis right lung base. 2. Nodular density left upper lobe. This should be confirmed as stable over the course of 2 years. Fo llow-up chest x-ray in 3 months is recommended.
--- NOTE | 2018-03-17 12:14 | P.PN ---
Subjective Was still on BiPAP Says that his breathing is better, cough is better Was sleeping this morning Objective - Vital Signs Vital signs: Vital Signs Temp 98 F 03/17/18 08:00 Pulse 122 H 03/17/18 11:49 Resp 29 H 03/17/18 10:00 BP 150/93 03/17/18 10:00 Pulse Ox 93 L 03/17/18 10:00 Intake & Output 03/16/18 03/17/18 03/17/18 18:59 06:59 18:59 Intake Total 150.848 4676.365 720 Output Total 300 250 Balance 362.249 3664.365 470 Weight 70.2 kg Intake: IV 120 1440 720 Sodium Chloride 0.9% 1, 120 1440 720 000 ml @ 120 mls/hr IV . Q8H20M BENJA Rx#:[id number] Intake, IV Titration 115.396 81.365 Amount Heparin Sod,Pork in 0.45% 115.396 81.365 NaCl 25,000 unit In 0.45 % NaCl 1 250ml.bag @ 12 UNITS/KG/HR 7.25 mls/hr IV .Q24H BENJA Rx#: [id number] Output: Urine 300 250 Other: Voiding Method Urinal Urinal # Voids 0 1 # Bowel Movements 1 - Exam On exam, alert and oriented x3. HEENT: Conjunctivae normal. eyes normal. NECK: No JVD. No thyroid enlargement. No LNs CARDIOVASCULAR: S1, S2 muffled. No murmur RESPIRATION: Wheezing bilaterally posteriorly but better than yesterday ABDOMEN: Soft, nontender . No guarding. no masses palpable. No ascites, No hepatosplenomegaly.Bowel sounds heard. LEGS: No edema. no swelling NERVOUS SYSTEM: Cranial N 2-12 grossly normal. Moves all 4 limbs. No focal deficits. No sensory deficit. No signs of cerebellar dysfucntion. Skin: no ulcer no rash Joints: No active swelling. No inflammation. Lymphatic system. No LN neck axilla or groin. - Labs CBC & Chem 7: 03/17/18 02:34 03/17/18 02:34 Labs: Abnormal Lab Results - Last 24 Hours (Table) 03/16/18 03/16/18 03/16/18 Range/Units 11:31 11:31 13:23 WBC (3.8-10.6) k/uL Neutrophils # (1.3-7.7) k/uL Lymphocytes # 0.3 L (1.0-4.8) k/uL APTT (22.0-30.0) sec ABG pO2 188 H (83-108) mmHg ABG Total CO2 26 H (19-24) mmol/L ABG O2 Saturation 99.8 H (94-97) % Chloride (98-107) mmol/L BUN 25 H (9-20) mg/dL Creatinine 0.55 L (0.66-1.25) mg/dL Glucose (74-99) mg/dL Magnesium (1.6-2.3) mg/dL Creatine Kinase 738 H (55-170) U/L 03/16/18 03/17/18 03/17/18 Range/Units 19: 02:34 02:34 WBC 11.9 H (3.8-10.6) k/uL Neutrophils # 11.0 H (1.3-7.7) k/uL Lymphocytes # 0.3 L (1.0-4.8) k/uL APTT 45.7 H (22.0-30.0) sec ABG pO2 (83-108) mmHg ABG Total CO2 (19-24) mmol/L ABG O2 Saturation (94-97) % Chloride 108 H (98-107) mmol/L BUN 28 H (9-20) mg/dL Creatinine 0.49 L (0.66-1.25) mg/dL Glucose 100 H (74-99) mg/dL Magnesium 2.7 H (1.6-2.3) mg/dL Creatine Kinase (55-170) U/L 03/17/18 Range/Units 02:34 WBC (3.8-10.6) k/uL Neutrophils # (1.3-7.7) k/uL Lymphocytes # (1.0-4.8) k/uL APTT 49.3 H (22.0-30.0) sec ABG pO2 (83-108) mmHg ABG Total CO2 (19-24) mmol/L ABG O2 Saturation (94-97) % Chloride (98-107) mmol/L BUN (9-20) mg/dL Creatinine (0.66-1.25) mg/dL Glucose (74-99) mg/dL Magnesium (1.6-2.3) mg/dL Creatine Kinase (55-170) U/L Assessment and Plan Assessment: Assessment - Acute respiratory failure - Acute COPD exacerbation causing respiratory failure - Rhabdomyolysis - Leukocytosis - Indeterminate troponin levels - History of DVT and GI bleed - History of colitis - History of right AKA - History of IVC filter placement Plan - Continue BiPAP and further management as per I's recommendations - Is on steroids and breathing treatments - Continue current management - We'll continue to monitor
--- NOTE | 2018-03-17 14:12 | P.PN ---
Subjective Progress Note Date: 03/17/18 This is a 68-year-old male patient with known history of COPD [place] more than approximately 4 [place]. Since then he has not seen a rn hedis. The patient has advanced COPD. The patient has been oxygen dependent for many years. He has been on a combination of Advair and Incrus regarding his COPD and utilizes albuterol rescue inhaler on an as-needed basis. He is known to have ulcerative colitis and he has received several bouts of systemic steroids on outpatient basis regarding his colitis. He is not take any form of biologic agents or maintenance agents regarding his inflammatory bowel disease. 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 He claims that he quit smoking approximately a month ago. He came into the hospital because of increased cough , chest congestion, chest tightness and wheezing and he was in considerable amount of respiratory distress at time of arrival. He was placed on BiPAP at a pressure of 12/6 cm of water and FiO2 of 40%. He is feeling better. Is less short of breath. At the time of my arrival, he was still a mild degree of respiratory distress although reported that his condition was improving. Blood gases was done in emergency department with an FiO2 of 50% while him being on a BiPAP and the pH was at 7.36 with a pCO2 of 43 and pO2 of 188. Chest x-ray shows COPD and the CAT scan of the chest showed no evidence of any pulmonary embolism. 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 There was coronary calcifications. There is extensive amount of emphysematous changes bilaterally. No nausea. No vomiting. No abdominal pain. No altered mentation. No angina. No palpitation. No cardiac rhythm disturbance. On 03/17/2018, the patient continues to be quite short of breath secondary to his underlying COPD exacerbation. His requiring BiPAP for respiratory support. Despite being aggressively treated with a combination of bronchodilators steroids and antibiotics, the patient continues to BE short of breath and he has a very limited exercise capacity as the patient gets short of breath even being moved to a bedside commode. No chest pain. No nausea or vomiting. No altered mentation. Chest x-ray shows atelectatic changes in the right lung base. There is a left upper lobe nodular density which is a calcified granuloma. No fever. No chills. No leukocytosis. No other complaints otherwise. He remains on IV heparin. Objective - Vital Signs Vital signs: Vital Signs Temp 97.9 F 03/17/18 12:00 Pulse 97 03/17/18 13:00 Resp 29 H 03/17/18 13:00 BP 135/86 03/17/18 13:00 Pulse Ox 94 L 03/17/18 13:00 Intake & Output 03/16/18 03/17/18 03/17/18 18:59 06:59 18:59 Intake Total 228.051 2145.365 960 Output Total 300 250 Balance 808.021 4640.365 710 Weight 70.2 kg Intake: IV 120 1440 960 Sodium Chloride 0.9% 1, 120 1440 960 000 ml @ 120 mls/hr IV . Q8H20M [facility] Rx#:[id number] Intake, IV Titration 115.396 81.365 Amount Heparin Sod,Pork in 0.45% 115.396 81.365 NaCl 25,000 unit In 0.45 % NaCl 1 250ml.bag @ 12 UNITS/KG/HR 7.25 mls/hr IV .Q24H [facility] Rx#: [id number] Output: Urine 300 250 Other: Voiding Method Urinal Urinal # Voids 0 1 # Bowel Movements 1 - Exam Patient is a mild degree of respiratory distress even while waiting the BiPAP. He however thousand and overall condition is improved since he is around the emergency department. No altered mentation. He is able to communicate. Head exam was generally normal. There was no scleral icterus or corneal arcus. Mucous membranes were moist. Neck was supple and without jugular venous distension, thyromegaly, or carotid bruits. Carotids were easily palpable bilaterally. There was no adenopathy. Lungs sounds are diminished bilaterally along with prolongation of expiratory phase of breathing and scattered expiratory wheezes throughout the lung ferro bilaterally. Cardiac exam revealed the PMI to be normally situated and sized. The rhythm was regular and no extrasystoles were noted during several minutes of auscultation. The first and second heart sounds were normal and physiologic splitting of the second heart sound was noted. There were no murmurs, rubs, clicks, or gallops. Abdominal exam revealed normal bowel sounds. The abdomen was soft, non-tender, and without masses, organomegaly, or appreciable enlargement of the abdominal aorta. Extremities revealed an above-knee amputation on the right lower extremity. Left lower extremity shows palpable pulses. No cyanosis. No clubbing. Examination of the skin revealed no evidence of significant rashes, suspicious appearing nevi or other concerning lesions. Neurologically awake and alert and is no focal neurological deficits. - Labs CBC & Chem 7: 03/17/18 02:34 03/17/18 02:34 Labs: Abnormal Lab Results - Last 24 Hours (Table) 03/16/18 03/17/18 03/17/18 Range/Units 19:10 02:34 02:34 WBC 11.9 H (3.8-10.6) k/uL Neutrophils # 11.0 H (1.3-7.7) k/uL Lymphocytes # 0.3 L (1.0-4.8) k/uL APTT 45.7 H (22.0-30.0) sec Chloride 108 H (98-107) mmol/L BUN 28 H (9-20) mg/dL Creatinine 0.49 L (0.66-1.25) mg/dL Glucose 100 H (74-99) mg/dL Magnesium 2.7 H (1.6-2.3) mg/dL 03/17/18 Range/Units 02:34 WBC (3.8-10.6) k/uL Neutrophils # (1.3-7.7) k/uL Lymphocytes # (1.0-4.8) k/uL APTT 49.3 H (22.0-30.0) sec Chloride (98-107) mmol/L BUN (9-20) mg/dL Creatinine (0.66-1.25) mg/dL Glucose (74-99) mg/dL Magnesium (1.6-2.3) mg/dL Assessment and Plan Plan: Assessment 1 acute dyspnea and acute hypoxic respiratory failure secondary to COPD exacerbation. The patient's CAT scan of the chest shows no acute abnormalities aren't and COPD and the patient has no pneumonia or pulmonary embolism. Influenza screen is been negative. The CAT scan is showing a calcified urinoma the left upper lobe. Otherwise there is no evidence of pneumonia. The patient continues to be symptomatic bronchospastic and wheezy secondary to his underlying COPD exacerbation. He continues to require BiPAP for respiratory support. Some limited improvement only over the past 24 hours. 2 acute BiPAP dependent respiratory failure secondary to COPD exacerbation 3 advanced COPD with chronic hypoxic respiratory failure and the patient is demented on oxygen 2 L per minute nasal cannula 4 history of above-knee and position of the right lower extremity due to vascular complications 5 history of IVC filter placement without known history of pulmonary embolism 6 history of a limit 3 bowel disease/ulcerative colitis currently not receiving any Biologics 7 previous history of GI bleeds 8 history of smoking 9 minimal troponin leak without any significant EKG changes. 10 left upper lobe calcified granuloma Plan Patient is still struggling with his breathing. The patient continues to be symptomatic and short of breath. The patient continues to bronchospastic. I'm going to continue the patient on DuoNeb neb regimen [id number]. Continue Perforomist and Pulmicort nebulized treatments twice a day. IV Solu Medrol 60 mg every 6 hours. Oral Zithromax. Smoking cessation counseling was done. Continue fluid resuscitation. Continue BiPAP for respiratory support. May introduce some Xanax for anxiety. This continued IV heparin switch this patient to subcu heparin for DVT prophylaxis. We'll continue to follow. Echo shows no acute abnormalities. Condition is critical. May require intubation if there is any further worsening his shortness of breath. He'll be kept in ICU for 24 hours.
[2018-03-17] MEDS: HEPARIN SODIUM,PORCINE 5,000 UNIT/ML 1 ML VIAL SQ SCH (19:16)
[2018-03-17 21:06] LABS: ABG Base Excess 1.4 mmol/L; ABG HCO3 28 mmol/L (21-25); ABG PCO2 61 mmHg (35-45); ABG PH 7.28 (7.35-7.45); ABG PO2 97 mmHg (83-108); ABG TCO2 30 mmol/L (19-24)
--- NOTE | 2018-03-17 23:39 | XR ---
EXAM: XR Chest, 1 View CLINICAL HISTORY: ITS.REASON XR Reason: SOB TECHNIQUE: Frontal view of the chest. COMPARISON: 03/17/18 earlier time chest x-ray IMPRESSION: Redemonstration of a nodule in the left upper lobe measuring 8 mm. Unchanged increased right lower lobe opacity.
--- NOTE | 2018-03-17 23:52 | XR ---
EXAM: XR Chest, 1 View CLINICAL HISTORY: ITS.REASON XR Reason: post intubation TECHNIQUE: Frontal view of the chest. COMPARISON: Chest x-ray 03/17/18 earlier time IMPRESSION: ET tube terminates 4.8 cm from the letty. NG tube tip projects off the [id number] but appears to enter into the stomach.
[2018-03-18 00:04] LABS: ABG Base Excess 3.9 mmol/L; ABG HCO3 29 mmol/L (21-25); ABG PCO2 51 mmHg (35-45); ABG PH 7.36 (7.35-7.45); ABG PO2 >400 mmHg (83-108); ABG TCO2 31 mmol/L (19-24)
[2018-03-18] MEDS: NOREPINEPHRINE 4 MG in SODIUM CHLORIDE 0.9% 250 ML IV SCH ×2 (01:50→04:16)
[2018-03-18] MEDS: methylPREDNISolone SOD SUCCI 125 MG/2 ML VIAL IV SCH ×5 (01:51→23:47)
[2018-03-18] MEDS: CHLORHEXIDINE GLUCONATE 15 ML CUP MUCOUS MEM SCH ×3 (01:52→22:04)
[2018-03-18] MEDS: HEPARIN SODIUM,PORCINE 5,000 UNIT/ML 1 ML VIAL SQ SCH ×4 (01:52→23:47)
[2018-03-18 02:03] VITALS: BP 132/80
[2018-03-18] MEDS: LORazepam 2 MG/ML INJ IV PRN ×2 (02:18→20:20)
[2018-03-18 04:18] LABS: ABG Base Excess 5.2 mmol/L; ABG HCO3 30 mmol/L (21-25); ABG Oxygen Saturation 99.8 % (94-97); ABG PCO2 45 mmHg (35-45); ABG PH 7.43 (7.35-7.45); ABG PO2 191 mmHg (83-108); ABG TCO2 31 mmol/L (19-24)
[2018-03-18 05:09] LABS: Basophils % (A) 0 %; Eosinophils % (A) 0 %; HCT 37.1 % (39.0-53.0); Lymphocytes # (A) 0.2 k/uL (1.0-4.8); Lymphocytes % (A) 1 %; MCH 29.4 pg (25.0-35.0); MCHC 32.2 g/dL (31.0-37.0); MCV 91.2 fL (80.0-100.0); Mean Platelet Volume 6.6; Monocytes # (A) 0.6 k/uL (0-1.0); Monocytes % (A) 4 %; Neutrophils # (A) 16.6 k/uL (1.3-7.7); Neutrophils % (A) 95 %; Platelet Count 168 k/uL (150-450); RBC 4.07 m/uL (4.30-5.90); RDW 14.9 % (11.5-15.5); WBC 17.6 k/uL (3.8-10.6)
[2018-03-18 05:19] LABS: Anion Gap 2 mmol/L; Blood Urea Nitrogen 21 mg/dL (9-20); Calcium 8.1 mg/dL (8.4-10.2); Carbon Dioxide 30 mmol/L (22-30); Chloride 110 mmol/L (98-107); Glucose 141 mg/dL (74-99); Magnesium 2.5 mg/dL (1.6-2.3); Phosphorus 2.2 mg/dL (2.5-4.5); Potassium 4.3 mmol/L (3.5-5.1); Sodium 142 mmol/L (137-145)
[2018-03-18 06:13] LABS: Glucose,Whole Blood 135 mg/dL (75-99)
[2018-03-18] MEDS: INSULIN ASPART (NovoLOG) 100 UNIT/ML VIAL SQ SCH ×4 (06:13→23:52)
[2018-03-18] MEDS ORDERED: Phosphorus Replacement Protoco 1 EACH MISC MISCELLANE PRN (06:49)
[2018-03-18] MEDS ORDERED: SODIUM PHOSPHATE 10 MMOL in SODIUM CHLORIDE 0.9% 100 ML IVPB ONE (07:00)
[2018-03-18] MEDS: PROPOFOL 1,000 MG in EMPTY BAG 1 BAG IV SCH ×6 (07:05→22:05)
[2018-03-18] MEDS: IPRATROPIUM-ALBUTEROL 3 ML NEB INHALATION SCH ×4 (07:25→19:12)
[2018-03-18] MEDS: BUDESONIDE 0.5 MG/2 ML NEBU INHALATION SCH ×2 (07:25→19:14)
[2018-03-18] MEDS: FORMOTEROL FUMARATE 20 MCG/2 ML NEBU INHALATION SCH ×2 (07:25→19:14)
--- NOTE | 2018-03-18 08:21 | XR ---
EXAMINATION TYPE: XR chest 1V portable DATE OF EXAM: 03/18/2018 COMPARISON: Prior chest x-ray 03/17/2018 HISTORY: Intubated TECHNIQUE: Single frontal view of the chest is obtained. FINDINGS: Endotracheal tube and NG tube are overlying appropriate positions. Probable calcified gran uloma in the left upper lobe, there are cardiac leads. No evident pneumothorax. There may be small le ft pleural effusion. Patchy basilar density is noted. Aorta is dense. Heart size is stable. Underlyin g emphysematous changes again seen. IMPRESSION: Basilar atelectasis.
[2018-03-18] MEDS: FAMOTIDINE 20 MG/2 ML VIAL IV SCH ×2 (09:01→22:04)
[2018-03-18] MEDS: SODIUM CHLORIDE 0.9% 1,000 ML IV SCH ×2 (09:02→16:00)
[2018-03-18] MEDS: AZITHROMYCIN 500 MG TAB PO SCH (11:11)
[2018-03-18 11:47] LABS: Glucose,Whole Blood 139 mg/dL (75-99)
--- NOTE | 2018-03-18 12:10 | P.PN ---
Subjective Progress Note Date: 03/18/18 Principal diagnosis: Acute hypoxic and hypercapnic respiratory failure secondary to COPD exacerbation. This is a 68-year-old male patient with known history of COPD [place] more than approximately 4 years [place]. Since then he has not seen a an/ssn 2 4 operator. The patient has advanced COPD. The patient has been oxygen dependent for many years. He has been on a combination of Advair and Incrus regarding his COPD and utilizes albuterol rescue inhaler on an as-needed basis. He is known to have ulcerative colitis and he has received several bouts of systemic steroids on outpatient basis regarding his colitis. He is not take any form of biologic agents or maintenance agents regarding his inflammatory bowel disease. 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 He claims that he quit smoking approximately a month ago. He came into the hospital because of increased cough , chest congestion, chest tightness and wheezing and he was in considerable amount of respiratory distress at time of arrival. He was placed on BiPAP at a pressure of 12/6 cm of water and FiO2 of 40%. He is feeling better. Is less short of breath. At the time of my arrival, he was still a mild degree of respiratory distress although reported that his condition was improving. Blood gases was done in emergency department with an FiO2 of 50% while him being on a BiPAP and the pH was at 7.36 with a pCO2 of 43 and pO2 of 188. Chest x-ray shows COPD and the CAT scan of the chest showed no evidence of any pulmonary embolism. 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 There was coronary calcifications. There is extensive amount of emphysematous changes bilaterally. No nausea. No vomiting. No abdominal pain. No altered mentation. No angina. No palpitation. No cardiac rhythm disturbance. On 03/17/2018, the patient continues to be quite short of breath secondary to his underlying COPD exacerbation. His requiring BiPAP for respiratory support. Despite being aggressively treated with a combination of bronchodilators steroids and antibiotics, the patient continues to BE short of breath and he has a very limited exercise capacity as the patient gets short of breath even being moved to a bedside commode. No chest pain. No nausea or vomiting. No altered mentation. Chest x-ray shows atelectatic changes in the right lung base. There is a left upper lobe nodular density which is a calcified granuloma. No fever. No chills. No leukocytosis. No other complaints otherwise. He remains on IV heparin. On 03/18/2018, I'm seeing the patient for follow-up, and apparently last night, his respiratory condition deteriorated, patient was noted to be profoundly short of breath, and he was using his accessory muscles in spite of being on BiPAP. Hence the patient was intubated, and he is now on mechanical ventilation. His ventilator settings are assist control rate of 24 tidal volume of 400 FiO2 of 35% and PEEP of 5. Patient is also on propofol at 50 mcg/ kg/minute. Norepinephrine at 0.02 mcg/kg/m, patient is quite sedated, and I have no plans to interrupt sedation this morning since the patient was just extubated last night. His chest x-ray was reviewed, and it showed mostly bibasilar atelectasis. CBC showed leukocytosis with WBC count of 17.6 hemoglobin is 12 electrolytes were noted to be normal and normal renal profile noted. ABG this morning on 50% showed pO2 of 191 pCO2 of 45 pH of 7.43, hence his FiO2 was cut down to 35%. All his meds were reviewed, he is presently on DuoNeb, Zithromax, Pulmicort, Pepcid, Perforomist, heparin subcu, NovoLog insulin, methylprednisolone, lorazepam, propofol and norepinephrine. Objective - Vital Signs Vital signs: Vital Signs Temp 96.7 F L 03/18/18 07:00 Pulse 68 03/18/18 11:55 Resp 24 03/18/18 08:00 BP 132/80 03/17/18 23:30 Pulse Ox 100 03/18/18 08:00 Intake & Output 03/17/18 03/18/18 03/18/18 18:59 06:59 18:59 Intake Total 1440 1540.223 727.281 Output Total 600 825 285 Balance 840 715.223 442.281 Weight 71.5 kg 71.5 kg Intake: IV 1440 1440 600 Sodium Chloride 0.9% 1, 1440 1440 600 000 ml @ 120 mls/hr IV . Q8H20M [facility] Rx#:[id number] Intake, IV Titration 100.223 127.281 Amount Norepinephrine 4 mg In 0.223 38.743 Sodium Chloride 0.9% 250 ml @ 0.05 MCG/KG/MIN 13. 37 mls/hr IV .Q19H [facility] Rx #:[id number] Propofol 1,000 mg In 100.00 37.538 Empty Bag 1 bag @ Titrate IV .Q0M [facility] Rx#: [id number] Sodium Phosphate 10 mmol 51 In Sodium Chloride 0.9% 100 ml @ 51.667 mls/hr IVPB ONCE ONE Rx#: [id number] Output: Urine 600 825 285 Other: Voiding Method Urinal Indwelling Catheter Indwelling Catheter # Voids 1 0 # Bowel Movements 1 ABP, PAP, CO, CI - Last Documented Arterial Blood Pressure 98/54 - Exam Physical Exam: Revealed a 68-year-old white male, sedated, intubated, on propofol, in no distress. Head: Atraumatic normocephalic. HEENT:[Neck is supple.] [No neck masses.] [No thyromegaly.] [No JVD.] PERRLA, EOMI, endotracheal tube and orogastric tube are intact. Chest: [Diminished breath sound bilaterally, no crackles or rhonchi or wheezes.. ] Cardiac Exam: [Normal S1 and S2, no S3 gallop, no murmur.] Abdomen: [Soft, nontender, no megaly, no rebound, no guarding, normal bowel sounds.] Extremities: [No clubbing, no edema, no cyanosis.] There is evidence of right above-knee amputation noted to Neurological Exam: Sedated, could not be assessed. Psychiatric: Sedated cannot be addressed. Lymphatics: No lymphadenopathy. Skin: No rashes. - Labs CBC & Chem 7: 03/18/18 04:45 03/18/18 04:45 Labs: Abnormal Lab Results - Last 24 Hours (Table) 03/17/18 03/18/18 03/18/18 Range/Units 21:00 00:01 04:18 WBC (3.8-10.6) k/uL RBC (4.30-5.90) m/uL Hgb (13.0-17.5) gm/dL Hct (39.0-53.0) % Neutrophils # (1.3-7.7) k/uL Lymphocytes # (1.0-4.8) k/uL ABG pH 7.28 L (7.35-7.45) ABG pCO2 61 H 51 H (35-45) mmHg ABG pO2 >400 H 191 H (83-108) mmHg ABG HCO3 28 H 29 H 30 H (21-25) mmol/L ABG Total CO2 30 H 31 H 31 H (19-24) mmol/L ABG O2 Saturation 100.0 H 99.8 H (94-97) % Chloride (98-107) mmol/L BUN (9-20) mg/dL Creatinine (0.66-1.25) mg/dL Glucose (74-99) mg/dL POC Glucose (mg/dL) (75-99) mg/dL Calcium (8.4-10.2) mg/dL Phosphorus (2.5-4.5) mg/dL Magnesium (1.6-2.3) mg/dL 03/18/18 03/18/18 03/18/18 Range/Units 04:45 04:45 06:11 WBC 17.6 H (3.8-10.6) k/uL RBC 4.07 L (4.30-5.90) m/uL Hgb 12.0 L (13.0-17.5) gm/dL Hct 37.1 L (39.0-53.0) % Neutrophils # 16.6 H (1.3-7.7) k/uL Lymphocytes # 0.2 L (1.0-4.8) k/uL ABG pH (7.35-7.45) ABG pCO2 (35-45) mmHg ABG pO2 (83-108) mmHg ABG HCO3 (21-25) mmol/L ABG Total CO2 (19-24) mmol/L ABG O2 Saturation (94-97) % Chloride 110 H (98-107) mmol/L BUN 21 H (9-20) mg/dL Creatinine 0.46 L (0.66-1.25) mg/dL Glucose 141 H (74-99) mg/dL POC Glucose (mg/dL) 135 H (75-99) mg/dL Calcium 8.1 L (8.4-10.2) mg/dL Phosphorus 2.2 L (2.5-4.5) mg/dL Magnesium 2.5 H (1.6-2.3) mg/dL 03/18/18 Range/Units 11:45 WBC (3.8-10.6) k/uL RBC (4.30-5.90) m/uL Hgb (13.0-17.5) gm/dL Hct (39.0-53.0) % Neutrophils # (1.3-7.7) k/uL Lymphocytes # (1.0-4.8) k/uL ABG pH (7.35-7.45) ABG pCO2 (35-45) mmHg ABG pO2 (83-108) mmHg ABG HCO3 (21-25) mmol/L ABG Total CO2 (19-24) mmol/L ABG O2 Saturation (94-97) % Chloride (98-107) mmol/L BUN (9-20) mg/dL Creatinine (0.66-1.25) mg/dL Glucose (74-99) mg/dL POC Glucose (mg/dL) 139 H (75-99) mg/dL Calcium (8.4-10.2) mg/dL Phosphorus (2.5-4.5) mg/dL Magnesium (1.6-2.3) mg/dL Assessment and Plan Assessment: Impression: 1 acute hypoxic and hypercapnic respiratory failure secondary to acute exacerbation of COPD. 2 failed BiPAP therapy, presently on mechanical ventilation. 3 advanced COPD with chronic hypoxic respiratory failure 4 left upper lobe calcified granuloma 5 minimal troponin leak, felt to be not clinically significant. 6 history of inferior vena cava filter placement, questionable history of pulmonary embolism or DVT. 7 history of right above-knee amputation 8 history of tobacco dependence syndrome. Recommendation: Continue ventilatory support, bronchodilators, address nutritional support via enteral feeding, GI and DVT prophylaxis, empiric antibiotics, counseling regarding smoking cessation, patient is clearly not ready to be weaned at this point, he was just extubated last night, I have reviewed his chart, his medications, and I have recommended that we address her nutrition today, we will address weaning trials possibly in the next 24 hours and interruption of sedation on a daily basis after that. Patient is critically ill, presently on DuoNeb updrafts, Perforomist, Pulmicort, IV Solu- Medrol, and we will continue to follow. Critical care time is 35 minutes. Time with Patient: Greater than 30
[2018-03-18 18:21] LABS: Glucose,Whole Blood 121 mg/dL (75-99)
[2018-03-18] MEDS: IPRATROPIUM-ALBUTEROL 3 ML NEB INHALATION PRN (21:11)
[2018-03-18] MEDS: fentaNYL (PF) 1,000 MCG in SODIUM CHLORIDE 0.9% 80 ML IV SCH (22:04)
[2018-03-18 23:52] LABS: Glucose,Whole Blood 142 mg/dL (75-99)
--- NOTE | 2018-03-18 23:58 | P.PN ---
Subjective pt is 68 yo m with severe and advanced COPD, pt failed bipap therapy and needed mechanical intubation ,pt is been followed closely in the icu BY critical pulmonary care team . pt is on steroid and zithromax. pt is on iv fluid also , pt has leukocytosis . Objective - Vital Signs Vital signs: Vital Signs Temp 98 F 03/18/18 12:00 Pulse 68 03/18/18 12:00 Resp 24 03/18/18 12:00 BP 132/80 03/17/18 23:30 Pulse Ox 100 03/18/18 12:00 Intake & Output 03/17/18 03/18/18 03/18/18 18:59 06:59 18:59 Intake Total 1440 7582.780 5103.164 Output Total 600 825 415 Balance 840 715.223 820.164 Weight 71.5 kg 71.5 kg Intake: IV 1440 1440 960 Sodium Chloride 0.9% 1, 1440 1440 960 000 ml @ 120 mls/hr IV . Q8H20M [facility] Rx#:[id number] Intake, IV Titration 100.223 275.164 Amount Norepinephrine 4 mg In 0.223 38.743 Sodium Chloride 0.9% 250 ml @ 0.05 MCG/KG/MIN 13. 37 mls/hr IV .Q19H [facility] Rx #:[id number] Propofol 1,000 mg In 100.00 134.421 Empty Bag 1 bag @ Titrate IV .Q0M [facility] Rx#: [id number] Sodium Phosphate 10 mmol 102 In Sodium Chloride 0.9% 100 ml @ 51.667 mls/hr IVPB ONCE ONE Rx#: [id number] Output: Urine 600 825 415 Other: Voiding Method Urinal Indwelling Catheter Indwelling Catheter # Voids 1 0 # Bowel Movements 1 ABP, PAP, CO, CI - Last Documented Arterial Blood Pressure 104/55 - Exam -GENERAL: The patient is intubated and sedated HEENT: Pupils are round and equally reacting to light. EOMI. No scleral icterus. No conjunctival pallor. Normocephalic, atraumatic. No pharyngeal erythema. No thyromegaly. CARDIOVASCULAR: S1 and S2 present. No murmurs, rubs, or gallops. -PULMONARY: Chest is clear to auscultation, scattered wheezing ABDOMEN: Soft, nontender, nondistended, normoactive bowel sounds. No palpable organomegaly. MUSCULOSKELETAL: No joint swelling or deformity. EXTREMITIES: No cyanosis, clubbing, or pedal edema. NEUROLOGICAL: Gross neurological examination did not reveal any focal deficits. SKIN: No rashes. - Labs CBC & Chem 7: 03/18/18 04:45 03/18/18 04:45 Labs: Abnormal Lab Results - Last 24 Hours (Table) 03/17/18 03/18/18 03/18/18 Range/Units 21:00 00:01 04:18 WBC (3.8-10.6) k/uL RBC (4.30-5.90) m/uL Hgb (13.0-17.5) gm/dL Hct (39.0-53.0) % Neutrophils # (1.3-7.7) k/uL Lymphocytes # (1.0-4.8) k/uL ABG pH 7.28 L (7.35-7.45) ABG pCO2 61 H 51 H (35-45) mmHg ABG pO2 >400 H 191 H (83-108) mmHg ABG HCO3 28 H 29 H 30 H (21-25) mmol/L ABG Total CO2 30 H 31 H 31 H (19-24) mmol/L ABG O2 Saturation 100.0 H 99.8 H (94-97) % Chloride (98-107) mmol/L BUN (9-20) mg/dL Creatinine (0.66-1.25) mg/dL Glucose (74-99) mg/dL POC Glucose (mg/dL) (75-99) mg/dL Calcium (8.4-10.2) mg/dL Phosphorus (2.5-4.5) mg/dL Magnesium (1.6-2.3) mg/dL 03/18/18 03/18/18 03/18/18 Range/Units 04:45 04:45 06:11 WBC 17.6 H (3.8-10.6) k/uL RBC 4.07 L (4.30-5.90) m/uL Hgb 12.0 L (13.0-17.5) gm/dL Hct 37.1 L (39.0-53.0) % Neutrophils # 16.6 H (1.3-7.7) k/uL Lymphocytes # 0.2 L (1.0-4.8) k/uL ABG pH (7.35-7.45) ABG pCO2 (35-45) mmHg ABG pO2 (83-108) mmHg ABG HCO3 (21-25) mmol/L ABG Total CO2 (19-24) mmol/L ABG O2 Saturation (94-97) % Chloride 110 H (98-107) mmol/L BUN 21 H (9-20) mg/dL Creatinine 0.46 L (0.66-1.25) mg/dL Glucose 141 H (74-99) mg/dL POC Glucose (mg/dL) 135 H (75-99) mg/dL Calcium 8.1 L (8.4-10.2) mg/dL Phosphorus 2.2 L (2.5-4.5) mg/dL Magnesium 2.5 H (1.6-2.3) mg/dL 03/18/18 Range/Units 11:45 WBC (3.8-10.6) k/uL RBC (4.30-5.90) m/uL Hgb (13.0-17.5) gm/dL Hct (39.0-53.0) % Neutrophils # (1.3-7.7) k/uL Lymphocytes # (1.0-4.8) k/uL ABG pH (7.35-7.45) ABG pCO2 (35-45) mmHg ABG pO2 (83-108) mmHg ABG HCO3 (21-25) mmol/L ABG Total CO2 (19-24) mmol/L ABG O2 Saturation (94-97) % Chloride (98-107) mmol/L BUN (9-20) mg/dL Creatinine (0.66-1.25) mg/dL Glucose (74-99) mg/dL POC Glucose (mg/dL) 139 H (75-99) mg/dL Calcium (8.4-10.2) mg/dL Phosphorus (2.5-4.5) mg/dL Magnesium (1.6-2.3) mg/dL Assessment and Plan Assessment: acute hypoxic respiratory failure severe and advance copd s/p mechanical ventilation granuloma leukocytosis , mostly reactive secondary to steroids Plan: pt remains in the icu and been followed by critical care team . c/w emperic antibiotic, breathing treatment and steroids Labs and medication were reviewed.. Continue same treatment. Continue with symptomatic treatment. Resume home medication. Monitor lytes and vitals. DVT and GI prophylaxis. Further recommendations of the clinical course of the patient DVT prophylaxis: Subcutaneous heparin GI Prophylaxis: Pepcid Prognosis is guarded
[2018-03-19] MEDS: SODIUM CHLORIDE 0.9% 1,000 ML IV SCH ×3 (00:50→16:55)
[2018-03-19 04:40] LABS: Basophils % (A) 0 %; Eosinophils % (A) 0 %; HCT 36.6 % (39.0-53.0); HGB 11.9 gm/dL (13.0-17.5); Lymphocytes # (A) 0.1 k/uL (1.0-4.8); Lymphocytes % (A) 1 %; MCH 30.2 pg (25.0-35.0); MCHC 32.5 g/dL (31.0-37.0); Mean Platelet Volume 7.1; Monocytes # (A) 0.3 k/uL (0-1.0); Monocytes % (A) 2 %; Neutrophils # (A) 13.8 k/uL (1.3-7.7); Neutrophils % (A) 97 %; Platelet Count 127 k/uL (150-450); RBC 3.94 m/uL (4.30-5.90); RDW 15.3 % (11.5-15.5); WBC 14.3 k/uL (3.8-10.6)
[2018-03-19 04:54] LABS: Anion Gap 0 mmol/L; Blood Urea Nitrogen 21 mg/dL (9-20); Calcium 7.8 mg/dL (8.4-10.2); Carbon Dioxide 30 mmol/L (22-30); Chloride 111 mmol/L (98-107); Glucose 161 mg/dL (74-99); Magnesium 2.5 mg/dL (1.6-2.3); Phosphorus 2.6 mg/dL (2.5-4.5); Potassium 3.9 mmol/L (3.5-5.1); Sodium 141 mmol/L (137-145)
[2018-03-19] MEDS: PROPOFOL 1,000 MG in EMPTY BAG 1 BAG IV SCH ×5 (05:04→20:00)
[2018-03-19] MEDS: methylPREDNISolone SOD SUCCI 125 MG/2 ML VIAL IV SCH ×3 (05:05→18:16)
[2018-03-19] MEDS ORDERED: Potassium Replacement Protocol 1 EACH MISC MISCELLANE PRN (05:06)
[2018-03-19 05:47] LABS: Glucose,Whole Blood 138 mg/dL (75-99)
[2018-03-19] MEDS ORDERED: POTASSIUM BICARBONATE/CIT AC 20 MEQ TABLET.EFF NG-TUBE SCH (06:00)
[2018-03-19] MEDS: INSULIN ASPART (NovoLOG) 100 UNIT/ML VIAL SQ SCH ×3 (06:28→18:12)
[2018-03-19 07:16] LABS: ABG Base Excess 6.4 mmol/L; ABG HCO3 31 mmol/L (21-25); ABG Oxygen Saturation 97.6 % (94-97); ABG PCO2 46 mmHg (35-45); ABG PH 7.43 (7.35-7.45); ABG PO2 89 mmHg (83-108); ABG TCO2 32 mmol/L (19-24)
[2018-03-19] MEDS: BUDESONIDE 0.5 MG/2 ML NEBU INHALATION SCH ×2 (07:19→19:41)
[2018-03-19] MEDS: IPRATROPIUM-ALBUTEROL 3 ML NEB INHALATION SCH ×4 (07:19→19:41)
[2018-03-19] MEDS: FORMOTEROL FUMARATE 20 MCG/2 ML NEBU INHALATION SCH ×2 (07:19→19:41)
[2018-03-19] MEDS: HEPARIN SODIUM,PORCINE 5,000 UNIT/ML 1 ML VIAL SQ SCH ×2 (07:53→16:53)
[2018-03-19] MEDS: FAMOTIDINE 20 MG/2 ML VIAL IV SCH ×2 (07:53→19:53)
[2018-03-19] MEDS: CHLORHEXIDINE GLUCONATE 15 ML CUP MUCOUS MEM SCH ×2 (07:54→19:53)
[2018-03-19] MEDS: AZITHROMYCIN 500 MG TAB PO SCH (07:54)
--- NOTE | 2018-03-19 09:23 | XR ---
EXAMINATION TYPE: XR chest 1V portable DATE OF EXAM: 03/19/2018 COMPARISON: Prior chest x-ray 03/18/2018 HISTORY: Intubated TECHNIQUE: Single frontal view of the chest is obtained. FINDINGS: Endotracheal tube, NG tube, calcification in left upper lobe are stable. Patchy bibasilar density is again noted. No evident pneumothorax or pleural effusion. Heart size is stable. Aorta is d ense. Patient is rotated, there are cardiac leads. There is underlying emphysematous change. IMPRESSION: Probable basilar atelectasis, correlate to exclude pneumonia.
[2018-03-19] MEDS: NOREPINEPHRINE 4 MG in SODIUM CHLORIDE 0.9% 250 ML IV SCH (09:47)
--- NOTE | 2018-03-19 11:49 | P.PN ---
Subjective Progress Note Date: 03/19/18 Principal diagnosis: Acute hypoxic and hypercapnic respiratory failure secondary to COPD exacerbation. This is a 68-year-old male patient with known history of COPD [place] more than approximately 4 years ago. Since then he has not seen a medical claims specialist. The patient has advanced COPD. The patient has been oxygen dependent for many years. He has been on a combination of Advair and Incrus regarding his COPD and utilizes albuterol rescue inhaler on an as-needed basis. He is known to have ulcerative colitis and he has received several bouts of systemic steroids on outpatient basis regarding his colitis. He is not take any form of biologic agents or maintenance agents regarding his inflammatory bowel disease. 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 He claims that he quit smoking approximately a month ago. He came into the hospital because of increased cough , chest congestion, chest tightness and wheezing and he was in considerable amount of respiratory distress at time of arrival. He was placed on BiPAP at a pressure of 12/6 cm of water and FiO2 of 40%. He is feeling better. Is less short of breath. At the time of my arrival, he was still a mild degree of respiratory distress although reported that his condition was improving. Blood gases was done in emergency department with an FiO2 of 50% while him being on a BiPAP and the pH was at 7.36 with a pCO2 of 43 and pO2 of 188. Chest x-ray shows COPD and the CAT scan of the chest showed no evidence of any pulmonary embolism. 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 There was coronary calcifications. There is extensive amount of emphysematous changes bilaterally. No nausea. No vomiting. No abdominal pain. No altered mentation. No angina. No palpitation. No cardiac rhythm disturbance. On 03/17/2018, the patient continues to be quite short of breath secondary to his underlying COPD exacerbation. His requiring BiPAP for respiratory support. Despite being aggressively treated with a combination of bronchodilators steroids and antibiotics, the patient continues to BE short of breath and he has a very limited exercise capacity as the patient gets short of breath even being moved to a bedside commode. No chest pain. No nausea or vomiting. No altered mentation. Chest x-ray shows atelectatic changes in the right lung base. There is a left upper lobe nodular density which is a calcified granuloma. No fever. No chills. No leukocytosis. No other complaints otherwise. He remains on IV heparin. On 03/18/2018, I'm seeing the patient for follow-up, and apparently last night, his respiratory condition deteriorated, patient was noted to be profoundly short of breath, and he was using his accessory muscles in spite of being on BiPAP. Hence the patient was intubated, and he is now on mechanical ventilation. His ventilator settings are assist control rate of 24 tidal volume of 400 FiO2 of 35% and PEEP of 5. Patient is also on propofol at 50 mcg/ kg/minute. Norepinephrine at 0.02 mcg/kg/m, patient is quite sedated, and I have no plans to interrupt sedation this morning since the patient was just extubated last night. His chest x-ray was reviewed, and it showed mostly bibasilar atelectasis. CBC showed leukocytosis with WBC count of 17.6 hemoglobin is 12 electrolytes were noted to be normal and normal renal profile noted. ABG this morning on 50% showed pO2 of 191 pCO2 of 45 pH of 7.43, hence his FiO2 was cut down to 35%. All his meds were reviewed, he is presently on DuoNeb, Zithromax, Pulmicort, Pepcid, Perforomist, heparin subcu, NovoLog insulin, methylprednisolone, lorazepam, propofol and norepinephrine. Patient was reevaluated today on 03/19/2018, remains in the ICU, mechanically ventilated, his ventilator settings are basically unchanged, remains on assist control rate of 24 FiO2 35%, tidal volume of 400 and PEEP of 5. Remains on A fall presently at 75 mcg/kg/m, he is also on fentanyl roughly about 25 g per hour. Slight drop in his sedation including cutting the propofol and fentanyl, patient became extremely agitated, he was struggling to breathe and he was noted to be asynchronous with the ventilator. Hence I had to sedate him again, and clearly the patient is not ready for any form of weaning at this point. Kept on a higher dose of propofol and her dose of fentanyl, he is presently off norepinephrine. Could not actually interrupt sedation enough to assess mental status today. Chest x-ray was reviewed, continues to show by basilar atelectasis, cannot rule out infiltrate/pneumonia. ABG this morning on the above settings showed a pO2 of 89 pCO2 of 46 pH of 7.43. CBC is showing leukocytosis with WBC 14.3 hemoglobin is 11.9. Electrolytes were noted to be normal, renal profile was noted to be normal. Meds were reviewed, remains on DuoNeb, Zithromax, heparin subcu, Solu-Medrol, Perforomist, and Pulmicort. Objective - Vital Signs Vital signs: Vital Signs Temp 98.6 F 03/19/18 04:00 Pulse 70 03/19/18 11:27 Resp 25 H 03/19/18 08:00 BP 132/80 03/17/18 23:30 Pulse Ox 100 03/19/18 07:00 Intake & Output 03/18/18 03/19/18 03/19/18 18:59 06:59 18:59 Intake Total 2081.679 1930.536 845.298 Output Total 650 430 165 Balance 8034.903 0757.536 680.298 Weight 71.5 kg Intake: IV 1560 1320 480 Sodium Chloride 0.9% 1, 1560 1320 480 000 ml @ 120 mls/hr IV . Q8H20M [facility] Rx#:[id number] Intake, IV Titration 361.679 200.536 165.298 Amount Norepinephrine 4 mg In 38.743 18.850 Sodium Chloride 0.9% 250 ml @ 0.05 MCG/KG/MIN 13. 37 mls/hr IV .Q19H [facility] Rx #:[id number] Propofol 1,000 mg In 220.936 200.536 114.622 Empty Bag 1 bag @ Titrate IV .Q0M [facility] Rx#: [id number] Sodium Phosphate 10 mmol 102 In Sodium Chloride 0.9% 100 ml @ 51.667 mls/hr IVPB ONCE ONE Rx#: [id number] fentaNYL (PF) 1,000 mcg 31.826 In Sodium Chloride 0.9% 80 ml @ 25 MCG/HR 2.5 mls /hr IV .Q24H [facility] Rx#: [id number] Tube Feeding 160 320 200 Other 90 Output: Urine 650 430 165 Other: Voiding Method Indwelling Catheter Indwelling Catheter Indwelling Catheter ABP, PAP, CO, CI - Last Documented Arterial Blood Pressure 95/49 - Exam Physical Exam: Revealed a 68-year-old white male, sedated, intubated, on propofol, in no distress. Noted to be extremely agitated once the propofol was cut down along with the fentanyl. Head: Atraumatic normocephalic. HEENT:[Neck is supple.] [No neck masses.] [No thyromegaly.] [No JVD.] PERRLA, EOMI, endotracheal tube and orogastric tube are intact. Chest: [Diminished breath sound bilaterally, no crackles or rhonchi or wheezes.. ] Cardiac Exam: [Normal S1 and S2, no S3 gallop, no murmur.] Abdomen: [Soft, nontender, no megaly, no rebound, no guarding, normal bowel sounds.] Extremities: [No clubbing, no edema, no cyanosis.] There is evidence of right above-knee amputation noted to Neurological Exam: Sedated, could not be assessed. Psychiatric: Sedated cannot be addressed. Lymphatics: No lymphadenopathy. Skin: No rashes. - Labs CBC & Chem 7: 03/19/18 04:05 03/19/18 04:05 Labs: Abnormal Lab Results - Last 24 Hours (Table) 03/18/18 03/18/18 03/18/18 Range/Units 11:45 18:20 23:50 WBC (3.8-10.6) k/uL RBC (4.30-5.90) m/uL Hgb (13.0-17.5) gm/dL Hct (39.0-53.0) % Plt Count (150-450) k/uL Neutrophils # (1.3-7.7) k/uL Lymphocytes # (1.0-4.8) k/uL ABG pCO2 (35-45) mmHg ABG HCO3 (21-25) mmol/L ABG Total CO2 (19-24) mmol/L ABG O2 Saturation (94-97) % Chloride (98-107) mmol/L BUN (9-20) mg/dL Creatinine (0.66-1.25) mg/dL Glucose (74-99) mg/dL POC Glucose (mg/dL) 139 H 121 H 142 H (75-99) mg/dL Calcium (8.4-10.2) mg/dL Magnesium (1.6-2.3) mg/dL 02/12/19 02/12/19 02/12/19 Range/Units 04:05 04:05 05:45 WBC 14.3 H (3.8-10.6) k/uL RBC 3.94 L (4.30-5.90) m/uL Hgb 11.9 L (13.0-17.5) gm/dL Hct 36.6 L (39.0-53.0) % Plt Count 127 L (150-450) k/uL Neutrophils # 13.8 H (1.3-7.7) k/uL Lymphocytes # 0.1 L (1.0-4.8) k/uL ABG pCO2 (35-45) mmHg ABG HCO3 (21-25) mmol/L ABG Total CO2 (19-24) mmol/L ABG O2 Saturation (94-97) % Chloride 111 H (98-107) mmol/L BUN 21 H (9-20) mg/dL Creatinine 0.46 L (0.66-1.25) mg/dL Glucose 161 H (74-99) mg/dL POC Glucose (mg/dL) 138 H (75-99) mg/dL Calcium 7.8 L (8.4-10.2) mg/dL Magnesium 2.5 H (1.6-2.3) mg/dL 03/19/18 Range/Units 07:12 WBC (3.8-10.6) k/uL RBC (4.30-5.90) m/uL Hgb (13.0-17.5) gm/dL Hct (39.0-53.0) % Plt Count (150-450) k/uL Neutrophils # (1.3-7.7) k/uL Lymphocytes # (1.0-4.8) k/uL ABG pCO2 46 H (35-45) mmHg ABG HCO3 31 H (21-25) mmol/L ABG Total CO2 32 H (19-24) mmol/L ABG O2 Saturation 97.6 H (94-97) % Chloride (98-107) mmol/L BUN (9-20) mg/dL Creatinine (0.66-1.25) mg/dL Glucose (74-99) mg/dL POC Glucose (mg/dL) (75-99) mg/dL Calcium (8.4-10.2) mg/dL Magnesium (1.6-2.3) mg/dL Microbiology - Last 24 Hours (Table) 03/18/18 11:40 Gram Stain - Preliminary Sputum Sputum Culture - Preliminary Pseudomonas spec Assessment and Plan Assessment: Impression: 1 acute hypoxic and hypercapnic respiratory failure secondary to acute exacerbation of COPD. requiring intubation and mechanical ventilation. 2 failed BiPAP therapy, remains on mechanical ventilation today 3 advanced COPD with chronic hypoxic respiratory failure 4 left upper lobe calcified granuloma 5 minimal troponin leak, felt to be not clinically significant. 6 history of inferior vena cava filter placement, questionable history of pulmonary embolism or DVT. 7 history of right above-knee amputation 8 history of tobacco dependence syndrome. Recommendation: Attempted sedation interruption today, however the patient became extremely agitated, asynchronous with mechanical ventilation, could not ventilate the patient at a lower dose of propofol and fentanyl. Hence had to go back on a higher dose of both, will continue bronchodilators, antibiotics, steroids, I strongly believe the patient has severe underlying severe emphysema , and he will be extremely difficult to wean and extubate. I would likely discussed the issue with his family members, and I will strongly recommend early tracheostomy in this patient. Patient will benefit from tracheostomy and PEG tube placement. Unless the family would agree to terminal weaning and comfort care measures. Again the patient is extremely ill, he will be extremely difficult to wean, and those issues will be discussed with family members. At this point, I have a strong feeling that the patient will require tracheostomy. Critical care time is 35 minutes Time with Patient: Greater than 30
[2018-03-19 11:56] LABS: Glucose,Whole Blood 142 mg/dL (75-99)
[2018-03-19 17:46] LABS: Glucose,Whole Blood 116 mg/dL (75-99)
--- NOTE | 2018-03-19 18:30 | P.PN ---
Subjective pt is 68 yo m with severe and advanced COPD, pt failed bipap therapy and needed mechanical intubation ,pt is been followed closely in the icu BY critical pulmonary care team . pt is on steroid and zithromax. pt is on iv fluid also , pt has leukocytosis . 03/19/2018 Patient remains in the ICU intubated. Patient had a sedation holiday today with no significant response from the patient. Patient might end up needing tracheostomy. To discharge. pt is on steroid and zithromax. pt is on iv fluid also , pt has leukocytosis which is trending down from 17-14 K. Repeat chest x- ray: Bilateral atelectasis. Patient is been followed closely by pulmonary/ critical care team. Objective - Vital Signs Vital signs: Vital Signs Temp 99.6 F 03/19/18 16:00 Pulse 70 03/19/18 16:30 Resp 24 03/19/18 16:30 BP 132/80 03/17/18 23:30 Pulse Ox 99 03/19/18 16:30 Intake & Output 03/18/18 03/19/18 03/19/18 18:59 06:59 18:59 Intake Total 2081.679 4915.454 1712.100 Output Total 650 430 445 Balance 2180.537 9643.536 1856.100 Weight 71.5 kg Intake: IV 1560 1320 1320 Sodium Chloride 0.9% 1, 1560 1320 1320 000 ml @ 120 mls/hr IV . Q8H20M [facility] Rx#:[id number] Intake, IV Titration 361.679 200.536 391.100 Amount Norepinephrine 4 mg In 38.743 76.576 Sodium Chloride 0.9% 250 ml @ 0.05 MCG/KG/MIN 13. 37 mls/hr IV .Q19H [facility] Rx #:[id number] Propofol 1,000 mg In 220.936 200.536 279.338 Empty Bag 1 bag @ Titrate IV .Q0M [facility] Rx#: [id number] Sodium Phosphate 10 mmol 102 In Sodium Chloride 0.9% 100 ml @ 51.667 mls/hr IVPB ONCE ONE Rx#: [id number] fentaNYL (PF) 1,000 mcg 35.186 In Sodium Chloride 0.9% 80 ml @ 25 MCG/HR 2.5 mls /hr IV .Q24H [facility] Rx#: [id number] Tube Feeding 160 320 590 Other 90 Output: Urine 650 430 445 Other: Voiding Method Indwelling Catheter Indwelling Catheter Indwelling Catheter ABP, PAP, CO, CI - Last Documented Arterial Blood Pressure 120/65 - Exam -GENERAL: The patient is intubated and sedated HEENT: Pupils are round and equally reacting to light. EOMI. No scleral icterus. No conjunctival pallor. Normocephalic, atraumatic. No pharyngeal erythema. No thyromegaly. CARDIOVASCULAR: S1 and S2 present. No murmurs, rubs, or gallops. -PULMONARY: Chest is clear to auscultation, scattered wheezing ABDOMEN: Soft, nontender, nondistended, normoactive bowel sounds. No palpable organomegaly. MUSCULOSKELETAL: No joint swelling or deformity. EXTREMITIES: No cyanosis, clubbing, or pedal edema. NEUROLOGICAL: Gross neurological examination did not reveal any focal deficits. SKIN: No rashes. - Labs CBC & Chem 7: 03/19/18 04:05 03/19/18 04:05 Labs: Abnormal Lab Results - Last 24 Hours (Table) 03/18/18 03/19/18 03/19/18 Range/Units 23:50 04:05 04:05 WBC 14.3 H (3.8-10.6) k/uL RBC 3.94 L (4.30-5.90) m/uL Hgb 11.9 L (13.0-17.5) gm/dL Hct 36.6 L (39.0-53.0) % Plt Count 127 L (150-450) k/uL Neutrophils # 13.8 H (1.3-7.7) k/uL Lymphocytes # 0.1 L (1.0-4.8) k/uL ABG pCO2 (35-45) mmHg ABG HCO3 (21-25) mmol/L ABG Total CO2 (19-24) mmol/L ABG O2 Saturation (94-97) % Chloride 111 H (98-107) mmol/L BUN 21 H (9-20) mg/dL Creatinine 0.46 L (0.66-1.25) mg/dL Glucose 161 H (74-99) mg/dL POC Glucose (mg/dL) 142 H (75-99) mg/dL Calcium 7.8 L (8.4-10.2) mg/dL Magnesium 2.5 H (1.6-2.3) mg/dL 03/19/18 03/19/18 03/19/18 Range/Units 05:45 07:12 11:54 WBC (3.8-10.6) k/uL RBC (4.30-5.90) m/uL Hgb (13.0-17.5) gm/dL Hct (39.0-53.0) % Plt Count (150-450) k/uL Neutrophils # (1.3-7.7) k/uL Lymphocytes # (1.0-4.8) k/uL ABG pCO2 46 H (35-45) mmHg ABG HCO3 31 H (21-25) mmol/L ABG Total CO2 32 H (19-24) mmol/L ABG O2 Saturation 97.6 H (94-97) % Chloride (98-107) mmol/L BUN (9-20) mg/dL Creatinine (0.66-1.25) mg/dL Glucose (74-99) mg/dL POC Glucose (mg/dL) 138 H 142 H (75-99) mg/dL Calcium (8.4-10.2) mg/dL Magnesium (1.6-2.3) mg/dL 03/19/18 Range/Units 17:44 WBC (3.8-10.6) k/uL RBC (4.30-5.90) m/uL Hgb (13.0-17.5) gm/dL Hct (39.0-53.0) % Plt Count (150-450) k/uL Neutrophils # (1.3-7.7) k/uL Lymphocytes # (1.0-4.8) k/uL ABG pCO2 (35-45) mmHg ABG HCO3 (21-25) mmol/L ABG Total CO2 (19-24) mmol/L ABG O2 Saturation (94-97) % Chloride (98-107) mmol/L BUN (9-20) mg/dL Creatinine (0.66-1.25) mg/dL Glucose (74-99) mg/dL POC Glucose (mg/dL) 116 H (75-99) mg/dL Calcium (8.4-10.2) mg/dL Magnesium (1.6-2.3) mg/dL Microbiology - Last 24 Hours (Table) 03/18/18 11:40 Gram Stain - Preliminary Sputum Sputum Culture - Preliminary Pseudomonas spec Assessment and Plan Assessment: acute hypoxic respiratory failure severe and advance copd s/p mechanical ventilation granuloma leukocytosis , mostly reactive secondary to steroids Plan: pt remains in the icu and been followed by critical care team . c/w emperic antibiotic, breathing treatment and steroids Labs and medication were reviewed.. Continue same treatment. Continue with symptomatic treatment. Resume home medication. Monitor lytes and vitals. DVT and GI prophylaxis. Further recommendations of the clinical course of the patient DVT prophylaxis: Subcutaneous heparin GI Prophylaxis: Pepcid Prognosis is guarded
[2018-03-19] MEDS: fentaNYL (PF) 1,000 MCG in SODIUM CHLORIDE 0.9% 80 ML IV SCH (20:37)
[2018-03-19] MEDS: LEVOFLOXACIN 750MG-D5W PMX 750 MG in DEXTROSE/WATER 1 150ML.BAG IVPB SCH (21:49)
[2018-03-20 00:40] LABS: Glucose,Whole Blood 148 mg/dL (75-99)
[2018-03-20] MEDS: INSULIN ASPART (NovoLOG) 100 UNIT/ML VIAL SQ SCH ×4 (00:52→18:29)
[2018-03-20] MEDS: methylPREDNISolone SOD SUCCI 125 MG/2 ML VIAL IV SCH ×4 (00:52→17:50)
[2018-03-20] MEDS: HEPARIN SODIUM,PORCINE 5,000 UNIT/ML 1 ML VIAL SQ SCH ×3 (00:54→15:48)
[2018-03-20] MEDS: PIPERACILLIN-TAZOBACTAM 3.375 GM in SODIUM CHLORIDE 0.9% 100 ML IVPB SCH ×3 (00:55→16:15)
[2018-03-20] MEDS: SODIUM CHLORIDE 0.9% 1,000 ML IV SCH ×3 (00:55→15:53)
[2018-03-20 04:58] LABS: Basophils % (A) 0 %; Eosinophils % (A) 0 %; HCT 36.3 % (39.0-53.0); HGB 11.4 gm/dL (13.0-17.5); Hypochromasia Slight; Lymphocytes # (A) 0.2 k/uL (1.0-4.8); Lymphocytes % (A) 1 %; MCH 29.7 pg (25.0-35.0); MCHC 31.4 g/dL (31.0-37.0); MCV 94.8 fL (80.0-100.0); Mean Platelet Volume 6.6; Monocytes # (A) 0.3 k/uL (0-1.0); Monocytes % (A) 2 %; Neutrophils # (A) 11.2 k/uL (1.3-7.7); Neutrophils % (A) 95 %; Platelet Count 121 k/uL (150-450); RBC 3.83 m/uL (4.30-5.90); RDW 15.1 % (11.5-15.5); WBC 11.8 k/uL (3.8-10.6)
[2018-03-20] MEDS: PROPOFOL 1,000 MG in EMPTY BAG 1 BAG IV SCH ×6 (05:00→18:28)
[2018-03-20 05:01] LABS: Glucose,Whole Blood 104 mg/dL (75-99)
[2018-03-20 05:18] LABS: Anion Gap 2 mmol/L; Blood Urea Nitrogen 24 mg/dL (9-20); Calcium 7.7 mg/dL (8.4-10.2); Carbon Dioxide 28 mmol/L (22-30); Chloride 112 mmol/L (98-107); Glucose 110 mg/dL (74-99); Magnesium 2.5 mg/dL (1.6-2.3); Phosphorus 2.3 mg/dL (2.5-4.5); Potassium 4.3 mmol/L (3.5-5.1); Sodium 142 mmol/L (137-145)
[2018-03-20] MEDS ORDERED: POTASSIUM PHOSPHATE 10 MMOL in SODIUM CHLORIDE 0.9% 250 ML IV ONE (06:30)
[2018-03-20 07:11] LABS: ABG Base Excess 7.4 mmol/L; ABG HCO3 32 mmol/L (21-25); ABG Oxygen Saturation 94.6 % (94-97); ABG PCO2 48 mmHg (35-45); ABG PH 7.43 (7.35-7.45); ABG PO2 70 mmHg (83-108); ABG TCO2 33 mmol/L (19-24)
[2018-03-20] MEDS: IPRATROPIUM-ALBUTEROL 3 ML NEB INHALATION SCH ×4 (07:19→20:24)
[2018-03-20] MEDS: FORMOTEROL FUMARATE 20 MCG/2 ML NEBU INHALATION SCH ×2 (07:19→20:24)
[2018-03-20] MEDS: BUDESONIDE 0.5 MG/2 ML NEBU INHALATION SCH ×2 (07:19→20:24)
--- NOTE | 2018-03-20 07:36 | XR ---
EXAMINATION TYPE: XR chest 1V portable DATE OF EXAM: 03/20/2018 COMPARISON: Prior chest x-ray 03/19/2018 HISTORY: Intubated TECHNIQUE: Single frontal view of the chest is obtained. FINDINGS: Endotracheal tube and NG tube are overlying appropriate positions. Patchy basilar density is noted, interstitium is increased. Heart size is stable. No pneumothorax. Aorta is dense. Patient i s rotated. Calcification left upper lobe is stable. IMPRESSION: Suspect some progression in airspace disease, correlate for congestive heart failure teodora luana pneumonia. Possible effusion.
[2018-03-20] MEDS: FAMOTIDINE 20 MG/2 ML VIAL IV SCH ×2 (08:25→22:25)
[2018-03-20] MEDS: CHLORHEXIDINE GLUCONATE 15 ML CUP MUCOUS MEM SCH ×2 (08:26→22:25)
[2018-03-20] MEDS ORDERED: CISATRACURIUM 2 MG/ML 5 ML VIAL IV ONE (09:43)
--- NOTE | 2018-03-20 09:51 | P.PN ---
Subjective pt is 68 yo m with severe and advanced COPD, pt failed bipap therapy and needed mechanical intubation ,pt is been followed closely in the icu BY critical pulmonary care team . pt is on steroid and zithromax. pt is on iv fluid also , pt has leukocytosis . 03/19/2018 Patient remains in the ICU intubated. Patient had a sedation holiday today with no significant response from the patient. Patient might end up needing tracheostomy. To discharge. pt is on steroid and zithromax. pt is on iv fluid also , pt has leukocytosis which is trending down from 17-14 K. Repeat chest x- ray: Bilateral atelectasis. Patient is been followed closely by pulmonary/ critical care team. 03/20/2018 Patient intubated and sedated in the ICU. He failed a sedation holiday. Critical care team are managing the patient ventilator. And it looks like patient unlikely he is going to be extubated and he might need tracheostomy. Family at bedside are considered this option currently. Leukocytosis improvement down to 11.8 K. BMP is unremarkable with creatinine 0.4. He is on Levaquin and Zosyn, has Pseudomonas in sputum culture.anticipation showing possible pneumonia Review of system: None applicable Medication: Albuterol, artificial tears, Pulmicort, chlorhexidine, Pepcid, fentanyl citrate, formoterol fumarate, heparin, Levaquin, Atrovent, Solu-Medrol , Levophed, Zosyn, propofol Objective - Vital Signs Vital signs: Vital Signs Temp 98.6 F 03/20/18 08:00 Pulse 67 03/20/18 08:18 Resp 24 03/20/18 08:00 BP 132/80 03/17/18 23:30 Pulse Ox 100 03/20/18 08:00 Intake & Output 03/19/18 03/20/18 03/20/18 18:59 06:59 18:59 Intake Total 2541.100 1855.546 522.014 Output Total 545 575 110 Balance 2950.902 8263.546 412.014 Weight 74 kg Intake: IV 1560 1564 473 Piperacillin-Tazobactam 3 100 100 .375 gm In Sodium Chloride 0.9% 100 ml @ 25 mls/hr IVPB Q8HR [facility] Rx# :[id number] Potassium Phosphate 10 250 mmol In Sodium Chloride 0 .9% 250 ml @ 125 mls/hr IV ONCE ONE Rx#:[id number] Pressure Bag 24 3 Sodium Chloride 0.9% 1, 1560 1440 120 000 ml @ 120 mls/hr IV . Q8H20M [facility] Rx#:[id number] Intake, IV Titration 391.100 291.546 49.014 Amount Norepinephrine 4 mg In 76.576 Sodium Chloride 0.9% 250 ml @ 0.05 MCG/KG/MIN 13. 37 mls/hr IV .Q19H [facility] Rx #:[id number] Propofol 1,000 mg In 279.338 250.986 49.014 Empty Bag 1 bag @ Titrate IV .Q0M [facility] Rx#: [id number] fentaNYL (PF) 1,000 mcg 35.186 40.56 In Sodium Chloride 0.9% 80 ml @ 25 MCG/HR 2.5 mls /hr IV .Q24H [facility] Rx#: [id number] Tube Feeding 590 0 0 Output: Urine 545 575 110 Other: Voiding Method Indwelling Catheter Indwelling Catheter # Voids 0 ABP, PAP, CO, CI - Last Documented Arterial Blood Pressure 104/50 - Exam -GENERAL: The patient is intubated and sedated HEENT: Pupils are round and equally reacting to light. EOMI. No scleral icterus. No conjunctival pallor. Normocephalic, atraumatic. No pharyngeal erythema. No thyromegaly. CARDIOVASCULAR: S1 and S2 present. No murmurs, rubs, or gallops. -PULMONARY: Chest is clear to auscultation, scattered wheezing ABDOMEN: Soft, nontender, nondistended, normoactive bowel sounds. No palpable organomegaly. MUSCULOSKELETAL: No joint swelling or deformity. EXTREMITIES: No cyanosis, clubbing, or pedal edema. NEUROLOGICAL: Gross neurological examination did not reveal any focal deficits. SKIN: No rashes. - Labs CBC & Chem 7: 03/20/18 04:21 03/20/18 04:21 Labs: Abnormal Lab Results - Last 24 Hours (Table) 03/19/18 03/19/18 03/20/18 Range/Units 11:54 17:44 00:38 WBC (3.8-10.6) k/uL RBC (4.30-5.90) m/uL Hgb (13.0-17.5) gm/dL Hct (39.0-53.0) % Plt Count (150-450) k/uL Neutrophils # (1.3-7.7) k/uL Lymphocytes # (1.0-4.8) k/uL ABG pCO2 (35-45) mmHg ABG pO2 (83-108) mmHg ABG HCO3 (21-25) mmol/L ABG Total CO2 (19-24) mmol/L Chloride (98-107) mmol/L BUN (9-20) mg/dL Creatinine (0.66-1.25) mg/dL Glucose (74-99) mg/dL POC Glucose (mg/dL) 142 H 116 H 148 H (75-99) mg/dL Calcium (8.4-10.2) mg/dL Phosphorus (2.5-4.5) mg/dL Magnesium (1.6-2.3) mg/dL 03/20/18 03/20/18 03/20/18 Range/Units 04:21 04:21 04:59 WBC 11.8 H (3.8-10.6) k/uL RBC 3.83 L (4.30-5.90) m/uL Hgb 11.4 L (13.0-17.5) gm/dL Hct 36.3 L (39.0-53.0) % Plt Count 121 L (150-450) k/uL Neutrophils # 11.2 H (1.3-7.7) k/uL Lymphocytes # 0.2 L (1.0-4.8) k/uL ABG pCO2 (35-45) mmHg ABG pO2 (83-108) mmHg ABG HCO3 (21-25) mmol/L ABG Total CO2 (19-24) mmol/L Chloride 112 H (98-107) mmol/L BUN 24 H (9-20) mg/dL Creatinine 0.40 L (0.66-1.25) mg/dL Glucose 110 H (74-99) mg/dL POC Glucose (mg/dL) 104 H (75-99) mg/dL Calcium 7.7 L (8.4-10.2) mg/dL Phosphorus 2.3 L (2.5-4.5) mg/dL Magnesium 2.5 H (1.6-2.3) mg/dL 03/20/18 Range/Units 07:05 WBC (3.8-10.6) k/uL RBC (4.30-5.90) m/uL Hgb (13.0-17.5) gm/dL Hct (39.0-53.0) % Plt Count (150-450) k/uL Neutrophils # (1.3-7.7) k/uL Lymphocytes # (1.0-4.8) k/uL ABG pCO2 48 H (35-45) mmHg ABG pO2 70 L (83-108) mmHg ABG HCO3 32 H (21-25) mmol/L ABG Total CO2 33 H (19-24) mmol/L Chloride (98-107) mmol/L BUN (9-20) mg/dL Creatinine (0.66-1.25) mg/dL Glucose (74-99) mg/dL POC Glucose (mg/dL) (75-99) mg/dL Calcium (8.4-10.2) mg/dL Phosphorus (2.5-4.5) mg/dL Magnesium (1.6-2.3) mg/dL Microbiology - Last 24 Hours (Table) 03/18/18 11:40 Gram Stain - Preliminary Sputum Sputum Culture - Preliminary Pseudomonas spec Assessment and Plan Assessment: acute hypoxic respiratory failure severe and advance copd Hospital-acquired pneumonia with pseudomonas. s/p mechanical ventilation granuloma leukocytosis , mostly reactive secondary to steroids Plan: pt remains in the icu and been followed by critical care team . c/w emperic antibiotic, breathing treatment and steroids Labs and medication were reviewed.. Continue same treatment. Continue with symptomatic treatment. Resume home medication. Monitor lytes and vitals. DVT and GI prophylaxis. Further recommendations of the clinical course of the patient DVT prophylaxis: Subcutaneous heparin GI Prophylaxis: Pepcid Prognosis is guarded
[2018-03-20] MEDS: CISATRACURIUM 200 MG in SODIUM CHLORIDE 0.9% 180 ML IV SCH (10:14)
--- NOTE | 2018-03-20 11:00 | P.PN ---
Subjective Progress Note Date: 03/20/18 Principal diagnosis: Acute hypoxic and hypercapnic respiratory failure secondary to COPD exacerbation. This is a 68-year-old male patient with known history of COPD [place] any more than approximately 4 years ago. Since then he has not seen a training executive. The patient has advanced COPD. The patient has been oxygen dependent for many years. He has been on a combination of Advair and Incrus regarding his COPD and utilizes albuterol rescue inhaler on an as-needed basis. He is known to have ulcerative colitis and he has received several bouts of systemic steroids on outpatient basis regarding his colitis. He is not take any form of biologic agents or maintenance agents regarding his inflammatory bowel disease. 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 He claims that he quit smoking approximately a month ago. He came into the hospital because of increased cough , chest congestion, chest tightness and wheezing and he was in considerable amount of respiratory distress at time of arrival. He was placed on BiPAP at a pressure of 12/6 cm of water and FiO2 of 40%. He is feeling better. Is less short of breath. At the time of my arrival, he was still a mild degree of respiratory distress although reported that his condition was improving. Blood gases was done in emergency department with an FiO2 of 50% while him being on a BiPAP and the pH was at 7.36 with a pCO2 of 43 and pO2 of 188. Chest x-ray shows COPD and the CAT scan of the chest showed no evidence of any pulmonary embolism. 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 There was coronary calcifications. There is extensive amount of emphysematous changes bilaterally. No nausea. No vomiting. No abdominal pain. No altered mentation. No angina. No palpitation. No cardiac rhythm disturbance. On 03/17/2018, the patient continues to be quite short of breath secondary to his underlying COPD exacerbation. His requiring BiPAP for respiratory support. Despite being aggressively treated with a combination of bronchodilators steroids and antibiotics, the patient continues to BE short of breath and he has a very limited exercise capacity as the patient gets short of breath even being moved to a bedside commode. No chest pain. No nausea or vomiting. No altered mentation. Chest x-ray shows atelectatic changes in the right lung base. There is a left upper lobe nodular density which is a calcified granuloma. No fever. No chills. No leukocytosis. No other complaints otherwise. He remains on IV heparin. On 03/18/2018, I'm seeing the patient for follow-up, and apparently last night, his respiratory condition deteriorated, patient was noted to be profoundly short of breath, and he was using his accessory muscles in spite of being on BiPAP. Hence the patient was intubated, and he is now on mechanical ventilation. His ventilator settings are assist control rate of 24 tidal volume of 400 FiO2 of 35% and PEEP of 5. Patient is also on propofol at 50 mcg/ kg/minute. Norepinephrine at 0.02 mcg/kg/m, patient is quite sedated, and I have no plans to interrupt sedation this morning since the patient was just extubated last night. His chest x-ray was reviewed, and it showed mostly bibasilar atelectasis. CBC showed leukocytosis with WBC count of 17.6 hemoglobin is 12 electrolytes were noted to be normal and normal renal profile noted. ABG this morning on 50% showed pO2 of 191 pCO2 of 45 pH of 7.43, hence his FiO2 was cut down to 35%. All his meds were reviewed, he is presently on DuoNeb, Zithromax, Pulmicort, Pepcid, Perforomist, heparin subcu, NovoLog insulin, methylprednisolone, lorazepam, propofol and norepinephrine. Patient was reevaluated today on 03/19/2018, remains in the ICU, mechanically ventilated, his ventilator settings are basically unchanged, remains on assist control rate of 24 FiO2 35%, tidal volume of 400 and PEEP of 5. Remains on A fall presently at 75 mcg/kg/m, he is also on fentanyl roughly about 25 g per hour. Slight drop in his sedation including cutting the propofol and fentanyl, patient became extremely agitated, he was struggling to breathe and he was noted to be asynchronous with the ventilator. Hence I had to sedate him again, and clearly the patient is not ready for any form of weaning at this point. Kept on a higher dose of propofol and her dose of fentanyl, he is presently off norepinephrine. Could not actually interrupt sedation enough to assess mental status today. Chest x-ray was reviewed, continues to show by basilar atelectasis, cannot rule out infiltrate/pneumonia. ABG this morning on the above settings showed a pO2 of 89 pCO2 of 46 pH of 7.43. CBC is showing leukocytosis with WBC 14.3 hemoglobin is 11.9. Electrolytes were noted to be normal, renal profile was noted to be normal. Meds were reviewed, remains on DuoNeb, Zithromax, heparin subcu, Solu-Medrol, Perforomist, and Pulmicort. Patient was reevaluated today on 03/20/2018. Remains in the ICU, remains on mechanical ventilation. Ventilator settings are basically about the same, he is on assist control rate of 24 tidal volume of 400, FiO2 35% and PEEP of 5. Remains on propofol, fentanyl, and today I had to add Nimbex patient became extremely agitated in spite of maximizing propofol and fentanyl. And he was completely asynchronous with the ventilator. And we got to the point where he was not being ventilated properly. I was at bedside all along, and recommended Nimbex which was given 10 mg bolus, and I have recommended adding a Nimbex drip. Family is at bedside, and I discussed his condition with his son and felt that the patient's condition is quite severe, and the patient will likely benefit from early tracheostomy. Yesterday we had a similar situation where in as soon as we cut down on the sedation, patient became extremely agitated, remained unresponsive, and he was basically not synchronous with the ventilator. Obviously the patient has severe underlying COPD, and I have noted some auto peeping. Recommended prolonging his expiratory phase mostly by increasing the flow rates, cutting the tidal volume, and cutting the rate. His expiratory phase had to be prolonged and now with the I: E ratio is 1:4. That is about the best way to a loud the patient to fully exhale and not develop auto PEEP. Chest x-ray now is showing by lateral infiltrates, and his sputum came back positive for Pseudomonas final sensitivity is pending. His ABG this morning showed a pO2 of 70 pCO2 of 48 pH of 7.43. Electrolytes were noted to be relatively normal CBC is relatively normal. Objective - Vital Signs Vital signs: Vital Signs Temp 98.6 F 03/20/18 08:00 Pulse 67 03/20/18 08:18 Resp 24 03/20/18 08:00 BP 132/80 03/17/18 23:30 Pulse Ox 100 03/20/18 08:00 Intake & Output 03/19/18 03/20/18 03/20/18 18:59 06:59 18:59 Intake Total 2541.100 1855.546 522.014 Output Total 545 575 110 Balance 0566.143 4387.546 412.014 Weight 74 kg Intake: IV 1560 1564 473 Piperacillin-Tazobactam 3 100 100 .375 gm In Sodium Chloride 0.9% 100 ml @ 25 mls/hr IVPB Q8HR PENDING SALE TO [facility] Rx# :[id number] Potassium Phosphate 10 250 mmol In Sodium Chloride 0 .9% 250 ml @ 125 mls/hr IV ONCE ONE Rx#:[id number] Pressure Bag 24 3 Sodium Chloride 0.9% 1, 1560 1440 120 000 ml @ 120 mls/hr IV . Q8H20M PENDING SALE TO [facility] Rx#:[id number] Intake, IV Titration 391.100 291.546 49.014 Amount Norepinephrine 4 mg In 76.576 Sodium Chloride 0.9% 250 ml @ 0.05 MCG/KG/MIN 13. 37 mls/hr IV .Q19H PENDING SALE TO [facility] Rx #:[id number] Propofol 1,000 mg In 279.338 250.986 49.014 Empty Bag 1 bag @ Titrate IV .Q0M PENDING SALE TO [facility] Rx#: [id number] fentaNYL (PF) 1,000 mcg 35.186 40.56 In Sodium Chloride 0.9% 80 ml @ 25 MCG/HR 2.5 mls /hr IV .Q24H PENDING SALE TO [facility] Rx#: [id number] Tube Feeding 590 0 0 Output: Urine 545 575 110 Other: Voiding Method Indwelling Catheter Indwelling Catheter # Voids 0 ABP, PAP, CO, CI - Last Documented Arterial Blood Pressure 104/50 - Exam Physical Exam: Revealed a 68-year-old white male, sedated, intubated, on propofol, noted to be extremely agitated once the dose of propofol was cut down to 50 mcg/kg/m. Head: Atraumatic normocephalic. HEENT:[Neck is supple.] [No neck masses.] [No thyromegaly.] [No JVD.] PERRLA, EOMI, endotracheal tube and orogastric tube are intact. Chest: [Diminished breath sound bilaterally, no crackles or rhonchi or wheezes.. ] Cardiac Exam: [Normal S1 and S2, no S3 gallop, no murmur.] Abdomen: [Soft, nontender, no megaly, no rebound, no guarding, normal bowel sounds.] Extremities: [No clubbing, no edema, no cyanosis.] There is evidence of right above-knee amputation noted to Neurological Exam: Sedated, could not be assessed. Could not hold sedation enough to assess mental status as the patient became extremely agitated and not synchronous with mechanical ventilation. Psychiatric: Sedated cannot be addressed. Lymphatics: No lymphadenopathy. Skin: No rashes. - Labs CBC & Chem 7: 03/20/18 04:21 03/20/18 04:21 Labs: Abnormal Lab Results - Last 24 Hours (Table) 03/19/18 03/19/18 03/20/18 Range/Units 11:54 17:44 00:38 WBC (3.8-10.6) k/uL RBC (4.30-5.90) m/uL Hgb (13.0-17.5) gm/dL Hct (39.0-53.0) % Plt Count (150-450) k/uL Neutrophils # (1.3-7.7) k/uL Lymphocytes # (1.0-4.8) k/uL ABG pCO2 (35-45) mmHg ABG pO2 (83-108) mmHg ABG HCO3 (21-25) mmol/L ABG Total CO2 (19-24) mmol/L Chloride (98-107) mmol/L BUN (9-20) mg/dL Creatinine (0.66-1.25) mg/dL Glucose (74-99) mg/dL POC Glucose (mg/dL) 142 H 116 H 148 H (75-99) mg/dL Calcium (8.4-10.2) mg/dL Phosphorus (2.5-4.5) mg/dL Magnesium (1.6-2.3) mg/dL 03/20/18 03/20/18 03/20/18 Range/Units 04:21 04:21 04:59 WBC 11.8 H (3.8-10.6) k/uL RBC 3.83 L (4.30-5.90) m/uL Hgb 11.4 L (13.0-17.5) gm/dL Hct 36.3 L (39.0-53.0) % Plt Count 121 L (150-450) k/uL Neutrophils # 11.2 H (1.3-7.7) k/uL Lymphocytes # 0.2 L (1.0-4.8) k/uL ABG pCO2 (35-45) mmHg ABG pO2 (83-108) mmHg ABG HCO3 (21-25) mmol/L ABG Total CO2 (19-24) mmol/L Chloride 112 H (98-107) mmol/L BUN 24 H (9-20) mg/dL Creatinine 0.40 L (0.66-1.25) mg/dL Glucose 110 H (74-99) mg/dL POC Glucose (mg/dL) 104 H (75-99) mg/dL Calcium 7.7 L (8.4-10.2) mg/dL Phosphorus 2.3 L (2.5-4.5) mg/dL Magnesium 2.5 H (1.6-2.3) mg/dL 03/20/18 Range/Units 07:05 WBC (3.8-10.6) k/uL RBC (4.30-5.90) m/uL Hgb (13.0-17.5) gm/dL Hct (39.0-53.0) % Plt Count (150-450) k/uL Neutrophils # (1.3-7.7) k/uL Lymphocytes # (1.0-4.8) k/uL ABG pCO2 48 H (35-45) mmHg ABG pO2 70 L (83-108) mmHg ABG HCO3 32 H (21-25) mmol/L ABG Total CO2 33 H (19-24) mmol/L Chloride (98-107) mmol/L BUN (9-20) mg/dL Creatinine (0.66-1.25) mg/dL Glucose (74-99) mg/dL POC Glucose (mg/dL) (75-99) mg/dL Calcium (8.4-10.2) mg/dL Phosphorus (2.5-4.5) mg/dL Magnesium (1.6-2.3) mg/dL Microbiology - Last 24 Hours (Table) 03/18/18 11:40 Gram Stain - Preliminary Sputum Sputum Culture - Preliminary Pseudomonas spec Assessment and Plan Assessment: Impression: 1 acute hypoxic and hypercapnic respiratory failure secondary to acute exacerbation of COPD. requiring intubation and mechanical ventilation. Also requiring propofol, fentanyl, and today Nimbex was added. 2 failed BiPAP therapy, requiring mechanical ventilation. 3 advanced COPD with chronic hypoxic respiratory failure 4 left upper lobe calcified granuloma 5 minimal troponin leak, felt to be not clinically significant. 6 history of inferior vena cava filter placement, questionable history of pulmonary embolism or DVT. 7 history of right above-knee amputation 8 history of tobacco dependence syndrome. 9 suspect Pseudomonas pneumonia, final sensitivity and identification is pending , patient was placed on Levaquin and Zosyn. Recommendation: Attempted sedation interruption today, however the patient became extremely agitated, asynchronous with mechanical ventilation, could not ventilate the patient at a lower dose of propofol and fentanyl. Had to be placed on Nimbex. Adjusted the ventilator settings including the flow rates, the rate, and made sure that i : E ratio is 1:4. In the meantime we'll continue GI and DVT prophylaxis. Continue nutritional support, continue antibiotics, bronchodilators, steroids, and from my impression at this point, I feel the patient will require early tracheostomy. Discussed his condition with his son at bedside, at this point he seems to be a bit reluctant to agree to early tracheostomy, also early PEG tube placement, but I have a feeling this would be an issue addressed on a daily basis. Unlikely the patient will wean easily. I would also arrange for a PICC line to be placed by interventional radiology. Again prognosis is extremely poor and guarded, patient remains critically ill. We'll continue to follow critical care time is 45 minutes Time with Patient: Greater than 30
[2018-03-20] MEDS: ARTIFICIAL TEARS-HYPROMELLOSE DROPS 15 ML BTL BOTH EYES SCH ×4 (11:02→20:47)
[2018-03-20 12:41] LABS: Glucose,Whole Blood 112 mg/dL (75-99)
[2018-03-20] MEDS ORDERED: LIDOCAINE 1% INJ 10MG/ML (20 ML MDV) SQ ONE (13:59)
[2018-03-20] MEDS ORDERED: MIDAZOLAM 2 MG/2 ML VIAL ONE (14:24)
--- NOTE | 2018-03-20 14:32 | XR ---
EXAMINATION TYPE: XR chest 1V confirm line [facility] DATE OF EXAM: 03/20/2018 COMPARISON: Prior chest x-ray same dated earlier time HISTORY: Status post PICC line placement TECHNIQUE: Single frontal view of the chest is obtained. FINDINGS: There is been interval placement of right-sided PICC line, distal tip is within the right atrium. No pneumothorax. IMPRESSION: No evident complication status post PICC line placement.
--- NOTE | 2018-03-20 17:29 | IR ---
EXAMINATION TYPE: IR cvc insert >=5 years DATE OF EXAM: 03/20/2018 COMPARISON: NONE HISTORY: Needs long-term intravenous access for antibiotics, infection FINDINGS: Maximal barrier technique was utilized. The skin overlying the upper extremity vein was lo calized with ultrasound and noted to be compressible and patent by ultrasound. An ultrasound image w as obtained and submitted on patient's chart. Sterile technique utilized with the ultrasound machine. The skin overlying was prepped and draped and Lidocaine used for local anesthesia. A skin patsy was made with a scalpel. Access was gained to the vein under direct ultrasound guidance with a 21-gauge needle and a 0.018 inch wire was advanced. Access site was dilated with a peel-away sheath and the c atheter tailored to length. Catheter advanced centrally and a post procedure chest x-ray verified pl acement with the tip in the right atrium. Catheter was fixed to the skin and a sterile dressing plac ed. Hemostasis achieved and the catheter was aspirated and flushed with sterile saline. The patient remained in stable condition. IMPRESSION: STATUS POST ULTRASOUND GUIDED PICC LINE PLACEMENT, READY FOR USE. THIS PROCEDURE WAS PER FORMED BY THE UNDERSIGNED.
[2018-03-20] MEDS: fentaNYL (PF) 1,000 MCG in SODIUM CHLORIDE 0.9% 80 ML IV SCH (17:45)
[2018-03-20 17:56] LABS: Glucose,Whole Blood 123 mg/dL (75-99)
--- NOTE | 2018-03-20 18:32 | P.GSCN ---
History of Present Illness Consult date: 03/20/18 Reason for Consult: Respiratory failure History of present illness: Patient presented to the hospital with acute hypoxia and respiratory failure. The patient was placed on the ventilator on 03/18. Patient has chronic COPD. It is felt that the patient would benefit from early tracheostomy. For that reason I was consulted. The patient has not had a tracheostomy oral feeding tube in the past. No significant abdominal scars. Patient did have a recent history of colitis that he has recovered from. Patient remains on an FiO2 of 35 % with PEEP of 5. He apparently has not tolerated weaning trials. PO2 today's was 70.currently tolerating tube feeds. 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 History of Any Multi-Drug Resistant Organisms: None Reported Past Surgical History: Hernia Repair Additional Past Surgical History / Comment(s): right AKA, left inguinal hernia sx, IVC filter Past Anesthesia/Blood Transfusion Reactions: No Reported Reaction Past Psychological History: No Psychological Hx Reported Smoking Status: Former smoker (quit smoking 15 years ago and he has 30 PPD and he has no alcoholism) Past Alcohol Use History: None Reported Past Drug Use History: None Reported - Past Family History Father Additional Family Medical History / Comment(s): artificial heart valves, rheumatic fever. Medications and Allergies Home Medications Medication Instructions Recorded Confirmed Type Albuterol Inhaler [Ventolin Hfa 2 puff INHALATION RT-Q4H PRN 09/12/15 03/15/18 History Inhaler] Albuterol Nebulized [Ventolin 2.5 mg INHALATION RT-QID PRN 03/15/18 03/15/18 History Nebulized] Fluticasone/Salmeterol [Advair 1 puff INHALATION RT-BID 03/15/18 03/15/18 History 500-50 Diskus] Nystatin 100,000 Unit/ml Susp 500,000 unit PO QID 03/15/18 03/15/18 History [Mycostatin Oral Susp] Umeclidinium [place] [Incruse 1 puff INHALATION RT-DAILY 03/15/18 03/15/18 History Ellipta] Allergies Allergy/AdvReac Type Severity Reaction Status Date / Time mesalamine [From Asacol] AdvReac Nausea & Verified 03/13/16 14:21 Vomiting & Diarrhea metronidazole [From Flagyl] AdvReac Nausea & Verified 03/13/16 14:21 Vomiting & Diarrhea Surgical - Exam Vital Signs Temp Pulse Resp BP Pulse Ox 98.2 F 134 H 18 142/115 92 L 03/15/18 15:46 03/15/18 15:46 03/15/18 15:46 03/15/18 15:46 03/15/18 15:46 Physical exam: General: Well-developed, well-nourished HEENT: Normocephalic, sclerae nonicteric, trachea midline, no masses Abdomen: Nontender, nondistended, no significant scarring Extremities: Edema bilateral upper extremity Neuro: Alert and oriented Results - Labs 03/20/18 04:21 03/20/18 04:21 Abnormal Lab Results - Last 24 Hours (Table) 03/20/18 03/20/18 03/20/18 Range/Units 00:38 04:21 04:21 WBC 11.8 H (3.8-10.6) k/uL RBC 3.83 L (4.30-5.90) m/uL Hgb 11.4 L (13.0-17.5) gm/dL Hct 36.3 L (39.0-53.0) % Plt Count 121 L (150-450) k/uL Neutrophils # 11.2 H (1.3-7.7) k/uL Lymphocytes # 0.2 L (1.0-4.8) k/uL ABG pCO2 (35-45) mmHg ABG pO2 (83-108) mmHg ABG HCO3 (21-25) mmol/L ABG Total CO2 (19-24) mmol/L Chloride 112 H (98-107) mmol/L BUN 24 H (9-20) mg/dL Creatinine 0.40 L (0.66-1.25) mg/dL Glucose 110 H (74-99) mg/dL POC Glucose (mg/dL) 148 H (75-99) mg/dL Calcium 7.7 L (8.4-10.2) mg/dL Phosphorus 2.3 L (2.5-4.5) mg/dL Magnesium 2.5 H (1.6-2.3) mg/dL 03/20/18 03/20/18 03/20/18 Range/Units 04:59 07:05 12:38 WBC (3.8-10.6) k/uL RBC (4.30-5.90) m/uL Hgb (13.0-17.5) gm/dL Hct (39.0-53.0) % Plt Count (150-450) k/uL Neutrophils # (1.3-7.7) k/uL Lymphocytes # (1.0-4.8) k/uL ABG pCO2 48 H (35-45) mmHg ABG pO2 70 L (83-108) mmHg ABG HCO3 32 H (21-25) mmol/L ABG Total CO2 33 H (19-24) mmol/L Chloride (98-107) mmol/L BUN (9-20) mg/dL Creatinine (0.66-1.25) mg/dL Glucose (74-99) mg/dL POC Glucose (mg/dL) 104 H 112 H (75-99) mg/dL Calcium (8.4-10.2) mg/dL Phosphorus (2.5-4.5) mg/dL Magnesium (1.6-2.3) mg/dL 03/20/18 Range/Units 17:54 WBC (3.8-10.6) k/uL RBC (4.30-5.90) m/uL Hgb (13.0-17.5) gm/dL Hct (39.0-53.0) % Plt Count (150-450) k/uL Neutrophils # (1.3-7.7) k/uL Lymphocytes # (1.0-4.8) k/uL ABG pCO2 (35-45) mmHg ABG pO2 (83-108) mmHg ABG HCO3 (21-25) mmol/L ABG Total CO2 (19-24) mmol/L Chloride (98-107) mmol/L BUN (9-20) mg/dL Creatinine (0.66-1.25) mg/dL Glucose (74-99) mg/dL POC Glucose (mg/dL) 123 H (75-99) mg/dL Calcium (8.4-10.2) mg/dL Phosphorus (2.5-4.5) mg/dL Magnesium (1.6-2.3) mg/dL Microbiology - Last 24 Hours (Table) 03/18/18 11:40 Gram Stain - Final Sputum Sputum Culture - Final Pseudomonas aeruginosa Diabetes panel 03/20/18 Range/Units 04:21 Sodium 142 (137-145) mmol/L Potassium 4.3 (3.5-5.1) mmol/L Chloride 112 H (98-107) mmol/L Carbon Dioxide 28 (22-30) mmol/L BUN 24 H (9-20) mg/dL Creatinine 0.40 L (0.66-1.25) mg/dL Glucose 110 H (74-99) mg/dL Calcium 7.7 L (8.4-10.2) mg/dL Calcium panel 03/20/18 Range/Units 04:21 Calcium 7.7 L (8.4-10.2) mg/dL Phosphorus 2.3 L (2.5-4.5) mg/dL Pituitary panel 03/20/18 Range/Units 04:21 Sodium 142 (137-145) mmol/L Potassium 4.3 (3.5-5.1) mmol/L Chloride 112 H (98-107) mmol/L Carbon Dioxide 28 (22-30) mmol/L BUN 24 H (9-20) mg/dL Creatinine 0.40 L (0.66-1.25) mg/dL Glucose 110 H (74-99) mg/dL Calcium 7.7 L (8.4-10.2) mg/dL Adrenal panel 03/20/18 Range/Units 04:21 Sodium 142 (137-145) mmol/L Potassium 4.3 (3.5-5.1) mmol/L Chloride 112 H (98-107) mmol/L Carbon Dioxide 28 (22-30) mmol/L BUN 24 H (9-20) mg/dL Creatinine 0.40 L (0.66-1.25) mg/dL Glucose 110 H (74-99) mg/dL Calcium 7.7 L (8.4-10.2) mg/dL Assessment and Plan (1) Respiratory failure Narrative/Plan: Clinical scenario discussed with the patient's son Slick by phone. We'll tentatively proceed with tracheostomy and PEG tube placement tomorrow. Risks of bleeding, infection, catheter malposition, fistula, prolonged respiratory failure, and were reviewed. He understands and wishes to proceed. Current Visit: Yes Status: Acute Code(s): J96.90 - RESPIRATORY FAILURE, UNSP , UNSP W HYPOXIA OR HYPERCAPNIA SNOMED Code(s): 162511589
[2018-03-20] MEDS: NOREPINEPHRINE 4 MG in SODIUM CHLORIDE 0.9% 250 ML IV SCH (21:45)
[2018-03-20] MEDS: LEVOFLOXACIN 750MG-D5W PMX 750 MG in DEXTROSE/WATER 1 150ML.BAG IVPB SCH (22:25)
[2018-03-21 00:03] LABS: Glucose,Whole Blood 163 mg/dL (75-99)
[2018-03-21 01:19] LABS: Glucose,Whole Blood 147 mg/dL (75-99)
[2018-03-21] MEDS: INSULIN ASPART (NovoLOG) 100 UNIT/ML VIAL SQ SCH ×4 (01:23→18:35)
[2018-03-21] MEDS: methylPREDNISolone SOD SUCCI 125 MG/2 ML VIAL IV SCH ×4 (01:28→18:19)
[2018-03-21] MEDS: HEPARIN SODIUM,PORCINE 5,000 UNIT/ML 1 ML VIAL SQ SCH ×3 (01:28→16:30)
[2018-03-21] MEDS: PIPERACILLIN-TAZOBACTAM 3.375 GM in SODIUM CHLORIDE 0.9% 100 ML IVPB SCH ×3 (01:29→16:02)
[2018-03-21] MEDS: SODIUM CHLORIDE 0.9% 1,000 ML IV SCH ×2 (01:29→09:38)
[2018-03-21] MEDS: ARTIFICIAL TEARS-HYPROMELLOSE DROPS 15 ML BTL BOTH EYES SCH ×6 (01:29→21:08)
[2018-03-21] MEDS: PROPOFOL 1,000 MG in EMPTY BAG 1 BAG IV SCH ×5 (04:16→18:19)
[2018-03-21] MEDS: NOREPINEPHRINE 4 MG in SODIUM CHLORIDE 0.9% 250 ML IV SCH ×2 (04:18→23:28)
[2018-03-21] MEDS: CISATRACURIUM 200 MG in SODIUM CHLORIDE 0.9% 180 ML IV SCH (04:38)
[2018-03-21 05:09] LABS: Basophils % (A) 0 %; Eosinophils % (A) 0 %; HCT 34.5 % (39.0-53.0); HGB 11.4 gm/dL (13.0-17.5); Lymphocytes # (A) 0.2 k/uL (1.0-4.8); Lymphocytes % (A) 2 %; MCHC 32.9 g/dL (31.0-37.0); MCV 94.3 fL (80.0-100.0); Mean Platelet Volume 6.7; Monocytes # (A) 0.2 k/uL (0-1.0); Monocytes % (A) 2 %; Neutrophils # (A) 9.4 k/uL (1.3-7.7); Neutrophils % (A) 95 %; Platelet Count 120 k/uL (150-450); RBC 3.66 m/uL (4.30-5.90); RDW 15.2 % (11.5-15.5); WBC 9.8 k/uL (3.8-10.6)
[2018-03-21 05:20] LABS: Anion Gap 0 mmol/L; Blood Urea Nitrogen 21 mg/dL (9-20); Calcium 7.4 mg/dL (8.4-10.2); Carbon Dioxide 32 mmol/L (22-30); Chloride 111 mmol/L (98-107); Glucose 133 mg/dL (74-99); Magnesium 2.5 mg/dL (1.6-2.3); Phosphorus 2.5 mg/dL (2.5-4.5); Sodium 143 mmol/L (137-145)
[2018-03-21 06:29] LABS: Glucose,Whole Blood 131 mg/dL (75-99)
[2018-03-21 07:38] LABS: ABG Base Excess 8.6 mmol/L; ABG HCO3 33 mmol/L (21-25); ABG Oxygen Saturation 96.9 % (94-97); ABG PCO2 50 mmHg (35-45); ABG PH 7.43 (7.35-7.45); ABG PO2 81 mmHg (83-108); ABG TCO2 34 mmol/L (19-24)
[2018-03-21] MEDS: IPRATROPIUM-ALBUTEROL 3 ML NEB INHALATION SCH ×4 (07:41→19:40)
[2018-03-21] MEDS: FORMOTEROL FUMARATE 20 MCG/2 ML NEBU INHALATION SCH ×2 (07:41→19:40)
[2018-03-21] MEDS: BUDESONIDE 0.5 MG/2 ML NEBU INHALATION SCH ×2 (07:41→19:40)
[2018-03-21] MEDS ORDERED: FUROSEMIDE 10 MG/ML 2 ML VIAL IV ONE (08:04)
[2018-03-21] MEDS: FAMOTIDINE 20 MG/2 ML VIAL IV SCH ×2 (08:27→21:46)
[2018-03-21] MEDS: CHLORHEXIDINE GLUCONATE 15 ML CUP MUCOUS MEM SCH ×2 (08:32→21:46)
--- NOTE | 2018-03-21 08:50 | XR ---
EXAMINATION TYPE: XR chest 1V portable DATE OF EXAM: 03/21/2018 COMPARISON: Prior chest x-ray 03/20/2018 HISTORY: Intubated TECHNIQUE: Single frontal view of the chest is obtained. FINDINGS: Endotracheal tube, orogastric tube, right sided PICC line are present and overlying approp riate positions. No evident pneumothorax. Prominent lung volumes compatible with underlying emphysema , calcification in the left upper lobe is stable. Bibasilar increased density persists. Aorta is dens e. Heart size is stable. Patient is rotated. IMPRESSION: Correlate for pneumonia versus atelectasis or edema, ARDS.
--- NOTE | 2018-03-21 10:29 | P.PN ---
Subjective Progress Note Date: 03/21/18 HISTORY OF PRESENT ILLNESS: 68-year-old male admitted to the intensive care unit with respiratory failure. He remains on mechanical ventilation. Tube feedings have been off since midnight. Chest x-ray this morning reveals evidence of pneumonia versus atelectasis, edema, or ARDS. Son at bedside and updated on plan of care. PHYSICAL EXAM: VITAL SIGNS: Currently stable. GENERAL: Well-developed in no acute distress. HEENT: ET tube noted. NG to LIS. No sclera icterus. Extraocular movements grossly intact. Moist buccal mucosa. Head is atraumatic, normocephalic.No nasal drainage. NECK: Supple without lymphadenopathy. CHEST: Non-labored respirations and equal bilateral excursions-remains on mechanical ventilation. CARDIOVASCULAR: Regular rate with regular rhythm. ABDOMEN: Soft. Nondistended. MUSCULOSKELETAL: No clubbing or cyanosis. Right AKA noted. NEUROLOGIC: Unable to assess secondary to mechanical ventilation PSYCH: Unable to assess secondary to mechanical ventilation SKIN: Well perfused. Good skin turgor. ASSESSMENT: 1. Acute hypoxic and hypercapnic respiratory failure secondary to acute exacerbation of COPD PLAN: Continue NG to LIS. Patient scheduled for Trach/PEG tube placement this afternoon with Dr. Lucero Nurse practitioner note has been reviewed by physician. Signing provider agrees with the documented findings, assessment, and plan of care. Objective - Vital Signs Vital signs: Vital Signs Temp 96.7 F L 03/21/18 08:00 Pulse 87 03/21/18 10:00 Resp 16 03/21/18 10:00 BP 132/80 03/17/18 23:30 Pulse Ox 94 L 03/21/18 10:00 Intake & Output 03/20/18 03/21/18 03/21/18 18:59 06:59 18:59 Intake Total 2348.290 1789.58 479 Output Total 650 785 140 Balance 6145.919 8637.58 339 Intake: IV 1803 1366 379 Piperacillin-Tazobactam 3 200 100 .375 gm In Sodium Chloride 0.9% 100 ml @ 25 mls/hr IVPB Q8HR [facility] Rx# :[id number] Potassium Phosphate 10 250 mmol In Sodium Chloride 0 .9% 250 ml @ 125 mls/hr IV ONCE ONE Rx#:[id number] Pressure Bag 33 36 9 Sodium Chloride 0.9% 1, 1320 1330 270 000 ml @ 75 mls/hr IV . [id number] [facility] Rx#:[id number] Intake, IV Titration 415.290 373.58 100 Amount Cisatracurium 200 mg In 19.906 123.58 Sodium Chloride 0.9% 180 ml @ 1 MCG/KG/MIN 4.44 mls/hr IV .Q24H [facility] Rx#: [id number] Piperacillin-Tazobactam 3 150 .375 gm In Sodium Chloride 0.9% 100 ml @ 25 mls/hr IVPB Q8HR [facility] Rx# :[id number] Propofol 1,000 mg In 316.328 100 100 Empty Bag 1 bag @ Titrate IV .Q0M [facility] Rx#: [id number] fentaNYL (PF) 1,000 mcg 79.056 In Sodium Chloride 0.9% 80 ml @ 60 MCG/HR 6 mls/ hr IV .[id number] [facility] Rx#: [id number] Tube Feeding 70 50 Other 60 Output: Urine 650 785 140 Other: Voiding Method Indwelling Catheter Indwelling Catheter # Voids 0 0 ABP, PAP, CO, CI - Last Documented Arterial Blood Pressure 156/65 - Labs CBC & Chem 7: 03/21/18 04:45 03/21/18 04:45 Labs: Abnormal Lab Results - Last 24 Hours (Table) 03/20/18 03/20/18 03/21/18 Range/Units 12:38 17:54 00:00 RBC (4.30-5.90) m/uL Hgb (13.0-17.5) gm/dL Hct (39.0-53.0) % Plt Count (150-450) k/uL Neutrophils # (1.3-7.7) k/uL Lymphocytes # (1.0-4.8) k/uL ABG pCO2 (35-45) mmHg ABG pO2 (83-108) mmHg ABG HCO3 (21-25) mmol/L ABG Total CO2 (19-24) mmol/L Chloride (98-107) mmol/L Carbon Dioxide (22-30) mmol/L BUN (9-20) mg/dL Creatinine (0.66-1.25) mg/dL Glucose (74-99) mg/dL POC Glucose (mg/dL) 112 H 123 H 163 H (75-99) mg/dL Calcium (8.4-10.2) mg/dL Magnesium (1.6-2.3) mg/dL 03/21/18 03/21/18 03/21/18 Range/Units 01:17 04:45 04:45 RBC 3.66 L (4.30-5.90) m/uL Hgb 11.4 L (13.0-17.5) gm/dL Hct 34.5 L (39.0-53.0) % Plt Count 120 L (150-450) k/uL Neutrophils # 9.4 H (1.3-7.7) k/uL Lymphocytes # 0.2 L (1.0-4.8) k/uL ABG pCO2 (35-45) mmHg ABG pO2 (83-108) mmHg ABG HCO3 (21-25) mmol/L ABG Total CO2 (19-24) mmol/L Chloride 111 H (98-107) mmol/L Carbon Dioxide 32 H (22-30) mmol/L BUN 21 H (9-20) mg/dL Creatinine 0.36 L (0.66-1.25) mg/dL Glucose 133 H (74-99) mg/dL POC Glucose (mg/dL) 147 H (75-99) mg/dL Calcium 7.4 L (8.4-10.2) mg/dL Magnesium 2.5 H (1.6-2.3) mg/dL 03/21/18 03/21/18 Range/Units 06:27 07:31 RBC (4.30-5.90) m/uL Hgb (13.0-17.5) gm/dL Hct (39.0-53.0) % Plt Count (150-450) k/uL Neutrophils # (1.3-7.7) k/uL Lymphocytes # (1.0-4.8) k/uL ABG pCO2 50 H (35-45) mmHg ABG pO2 81 L (83-108) mmHg ABG HCO3 33 H (21-25) mmol/L ABG Total CO2 34 H (19-24) mmol/L Chloride (98-107) mmol/L Carbon Dioxide (22-30) mmol/L BUN (9-20) mg/dL Creatinine (0.66-1.25) mg/dL Glucose (74-99) mg/dL POC Glucose (mg/dL) 131 H (75-99) mg/dL Calcium (8.4-10.2) mg/dL Magnesium (1.6-2.3) mg/dL Microbiology - Last 24 Hours (Table) 03/18/18 11:40 Gram Stain - Final Sputum Sputum Culture - Final Pseudomonas aeruginosa
--- NOTE | 2018-03-21 11:02 | P.PN ---
Subjective Progress Note Date: 03/21/18 Principal diagnosis: Acute hypoxic and hypercapnic respiratory failure secondary to COPD exacerbation. This is a 68-year-old male patient with known history of COPD [place] more than approximately 4 years ago. Since then he has not seen a human resources partner. The patient has advanced COPD. The patient has been oxygen dependent for many years. He has been on a combination of Advair and Incrus regarding his COPD and utilizes albuterol rescue inhaler on an as-needed basis. He is known to have ulcerative colitis and he has received several bouts of systemic steroids on outpatient basis regarding his colitis. He is not take any form of biologic agents or maintenance agents regarding his inflammatory bowel disease. 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 He claims that he quit smoking approximately a month ago. He came into the hospital because of increased cough , chest congestion, chest tightness and wheezing and he was in considerable amount of respiratory distress at time of arrival. He was placed on BiPAP at a pressure of 12/6 cm of water and FiO2 of 40%. He is feeling better. Is less short of breath. At the time of my arrival, he was still a mild degree of respiratory distress although reported that his condition was improving. Blood gases was done in emergency department with an FiO2 of 50% while him being on a BiPAP and the pH was at 7.36 with a pCO2 of 43 and pO2 of 188. Chest x-ray shows COPD and the CAT scan of the chest showed no evidence of any pulmonary embolism. 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 There was coronary calcifications. There is extensive amount of emphysematous changes bilaterally. No nausea. No vomiting. No abdominal pain. No altered mentation. No angina. No palpitation. No cardiac rhythm disturbance. On 03/17/2018, the patient continues to be quite short of breath secondary to his underlying COPD exacerbation. His requiring BiPAP for respiratory support. Despite being aggressively treated with a combination of bronchodilators steroids and antibiotics, the patient continues to BE short of breath and he has a very limited exercise capacity as the patient gets short of breath even being moved to a bedside commode. No chest pain. No nausea or vomiting. No altered mentation. Chest x-ray shows atelectatic changes in the right lung base. There is a left upper lobe nodular density which is a calcified granuloma. No fever. No chills. No leukocytosis. No other complaints otherwise. He remains on IV heparin. On 03/18/2018, I'm seeing the patient for follow-up, and apparently last night, his respiratory condition deteriorated, patient was noted to be profoundly short of breath, and he was using his accessory muscles in spite of being on BiPAP. Hence the patient was intubated, and he is now on mechanical ventilation. His ventilator settings are assist control rate of 24 tidal volume of 400 FiO2 of 35% and PEEP of 5. Patient is also on propofol at 50 mcg/ kg/minute. Norepinephrine at 0.02 mcg/kg/m, patient is quite sedated, and I have no plans to interrupt sedation this morning since the patient was just extubated last night. His chest x-ray was reviewed, and it showed mostly bibasilar atelectasis. CBC showed leukocytosis with WBC count of 17.6 hemoglobin is 12 electrolytes were noted to be normal and normal renal profile noted. ABG this morning on 50% showed pO2 of 191 pCO2 of 45 pH of 7.43, hence his FiO2 was cut down to 35%. All his meds were reviewed, he is presently on DuoNeb, Zithromax, Pulmicort, Pepcid, Perforomist, heparin subcu, NovoLog insulin, methylprednisolone, lorazepam, propofol and norepinephrine. Patient was reevaluated today on 03/19/2018, remains in the ICU, mechanically ventilated, his ventilator settings are basically unchanged, remains on assist control rate of 24 FiO2 35%, tidal volume of 400 and PEEP of 5. Remains on A fall presently at 75 mcg/kg/m, he is also on fentanyl roughly about 25 g per hour. Slight drop in his sedation including cutting the propofol and fentanyl, patient became extremely agitated, he was struggling to breathe and he was noted to be asynchronous with the ventilator. Hence I had to sedate him again, and clearly the patient is not ready for any form of weaning at this point. Kept on a higher dose of propofol and her dose of fentanyl, he is presently off norepinephrine. Could not actually interrupt sedation enough to assess mental status today. Chest x-ray was reviewed, continues to show by basilar atelectasis, cannot rule out infiltrate/pneumonia. ABG this morning on the above settings showed a pO2 of 89 pCO2 of 46 pH of 7.43. CBC is showing leukocytosis with WBC 14.3 hemoglobin is 11.9. Electrolytes were noted to be normal, renal profile was noted to be normal. Meds were reviewed, remains on DuoNeb, Zithromax, heparin subcu, Solu-Medrol, Perforomist, and Pulmicort. Patient was reevaluated today on 03/20/2018. Remains in the ICU, remains on mechanical ventilation. Ventilator settings are basically about the same, he is on assist control rate of 24 tidal volume of 400, FiO2 35% and PEEP of 5. Remains on propofol, fentanyl, and today I had to add Nimbex patient became extremely agitated in spite of maximizing propofol and fentanyl. And he was completely asynchronous with the ventilator. And we got to the point where he was not being ventilated properly. I was at bedside all along, and recommended Nimbex which was given 10 mg bolus, and I have recommended adding a Nimbex drip. Family is at bedside, and I discussed his condition with his son and felt that the patient's condition is quite severe, and the patient will likely benefit from early tracheostomy. Yesterday we had a similar situation where in as soon as we cut down on the sedation, patient became extremely agitated, remained unresponsive, and he was basically not synchronous with the ventilator. Obviously the patient has severe underlying COPD, and I have noted some auto peeping. Recommended prolonging his expiratory phase mostly by increasing the flow rates, cutting the tidal volume, and cutting the rate. His expiratory phase had to be prolonged and now with the I: E ratio is 1:4. That is about the best way to a loud the patient to fully exhale and not develop auto PEEP. Chest x-ray now is showing by lateral infiltrates, and his sputum came back positive for Pseudomonas final sensitivity is pending. His ABG this morning showed a pO2 of 70 pCO2 of 48 pH of 7.43. Electrolytes were noted to be relatively normal CBC is relatively normal. Reevaluated today on 03/21/2018. Patient remains on mechanical ventilation in the intensive care unit. He is presently on a tidal volume of 400, assist control rate of 16, FiO2 of 35%, and PEEP of 5. ABG showed a pO2 of 81 pCO2 of 50 pH of 7.43. Patient is hemodynamically stable, not requiring any pressors. However he is on fentanyl at 50 g per hour, Nimbex, propofol at 55 mcg/kg/m. Patient is going for tracheostomy today, initially his son was reluctant to agree to proceed with tracheostomy, however he changed his mind and agreed to it to be done this week. General surgery was consulted, and the patient may have his tracheostomy and PEG tube placement later today. In the meantime his tube feeding is on hold. All his labs were reviewed including CBC, basic metabolic profile, renal profile. And I have made adjustments on his ventilator settings. Plan to keep him on propofol fentanyl and Nimbex, will likely start addressing weaning trials in the next 24 hours hopefully his tracheostomy will be done today. Chest x-ray is showing worsening lateraldisease, and his sputum was positive for Pseudomonas pneumonia. Obviously his pneumonia is secondary to Pseudomonas aeruginosa. Objective - Vital Signs Vital signs: Vital Signs Temp 96.7 F L 03/21/18 08:00 Pulse 87 03/21/18 10:00 Resp 16 03/21/18 10:00 BP 132/80 03/17/18 23:30 Pulse Ox 94 L 03/21/18 10:00 Intake & Output 03/20/18 03/21/18 03/21/18 18:59 06:59 18:59 Intake Total 2348.290 1789.58 513.41 Output Total 650 785 140 Balance 1961.778 6187.58 373.41 Intake: IV 1803 1366 379 Piperacillin-Tazobactam 3 200 100 .375 gm In Sodium Chloride 0.9% 100 ml @ 25 mls/hr IVPB Q8HR [facility] Rx# :[id number] Potassium Phosphate 10 250 mmol In Sodium Chloride 0 .9% 250 ml @ 125 mls/hr IV ONCE ONE Rx#:[id number] Pressure Bag 33 36 9 Sodium Chloride 0.9% 1, 1320 1330 270 000 ml @ 75 mls/hr IV . [id number] [facility] Rx#:[id number] Intake, IV Titration 415.290 373.58 134.41 Amount Cisatracurium 200 mg In 19.906 123.58 Sodium Chloride 0.9% 180 ml @ 1 MCG/KG/MIN 4.44 mls/hr IV .Q24H [facility] Rx#: [id number] Piperacillin-Tazobactam 3 150 .375 gm In Sodium Chloride 0.9% 100 ml @ 25 mls/hr IVPB Q8HR [facility] Rx# :[id number] Propofol 1,000 mg In 316.328 100 134.41 Empty Bag 1 bag @ Titrate IV .Q0M [facility] Rx#: [id number] fentaNYL (PF) 1,000 mcg 79.056 In Sodium Chloride 0.9% 80 ml @ 60 MCG/HR 6 mls/ hr IV .[id number] [facility] Rx#: [id number] Tube Feeding 70 50 Other 60 Output: Urine 650 785 140 Other: Voiding Method Indwelling Catheter Indwelling Catheter Indwelling Catheter # Voids 0 0 ABP, PAP, CO, CI - Last Documented Arterial Blood Pressure 156/65 - Exam Physical Exam: Revealed a 68-year-old white male, sedated, intubated, on propofol, Nimbex and fentanyl. Head: Atraumatic normocephalic. HEENT:[Neck is supple.] [No neck masses.] [No thyromegaly.] [No JVD.] PERRLA, EOMI, endotracheal tube and orogastric tube are intact. Chest: [Crackles and rhonchi and wheezes bilaterally, more so at the bases. Symmetrical chest expansion. No chest wall tenderness.] Cardiac Exam: [Normal S1 and S2, no S3 gallop, no murmur.] Abdomen: [Soft, nontender, no megaly, no rebound, no guarding, normal bowel sounds.] Extremities: [No clubbing, 1+ bipedal edema, edema was also noted in the forearms bilaterally no cyanosis.] There is evidence of right above-knee amputation noted to Neurological Exam: Sedated, could not be assessed. Patient remains on propofol Nimbex and fentanyl. Psychiatric: Sedated cannot be addressed. Lymphatics: No lymphadenopathy. Skin: No rashes. Except areas of ecchymosis noted in upper extremities with edema. - Labs CBC & Chem 7: 03/21/18 04:45 03/21/18 04:45 Labs: Abnormal Lab Results - Last 24 Hours (Table) 03/20/18 03/20/18 03/21/18 Range/Units 12:38 17:54 00:00 RBC (4.30-5.90) m/uL Hgb (13.0-17.5) gm/dL Hct (39.0-53.0) % Plt Count (150-450) k/uL Neutrophils # (1.3-7.7) k/uL Lymphocytes # (1.0-4.8) k/uL ABG pCO2 (35-45) mmHg ABG pO2 (83-108) mmHg ABG HCO3 (21-25) mmol/L ABG Total CO2 (19-24) mmol/L Chloride (98-107) mmol/L Carbon Dioxide (22-30) mmol/L BUN (9-20) mg/dL Creatinine (0.66-1.25) mg/dL Glucose (74-99) mg/dL POC Glucose (mg/dL) 112 H 123 H 163 H (75-99) mg/dL Calcium (8.4-10.2) mg/dL Magnesium (1.6-2.3) mg/dL 03/21/18 03/21/18 03/21/18 Range/Units 01:17 04:45 04:45 RBC 3.66 L (4.30-5.90) m/uL Hgb 11.4 L (13.0-17.5) gm/dL Hct 34.5 L (39.0-53.0) % Plt Count 120 L (150-450) k/uL Neutrophils # 9.4 H (1.3-7.7) k/uL Lymphocytes # 0.2 L (1.0-4.8) k/uL ABG pCO2 (35-45) mmHg ABG pO2 (83-108) mmHg ABG HCO3 (21-25) mmol/L ABG Total CO2 (19-24) mmol/L Chloride 111 H (98-107) mmol/L Carbon Dioxide 32 H (22-30) mmol/L BUN 21 H (9-20) mg/dL Creatinine 0.36 L (0.66-1.25) mg/dL Glucose 133 H (74-99) mg/dL POC Glucose (mg/dL) 147 H (75-99) mg/dL Calcium 7.4 L (8.4-10.2) mg/dL Magnesium 2.5 H (1.6-2.3) mg/dL 03/21/18 03/21/18 Range/Units 06:27 07:31 RBC (4.30-5.90) m/uL Hgb (13.0-17.5) gm/dL Hct (39.0-53.0) % Plt Count (150-450) k/uL Neutrophils # (1.3-7.7) k/uL Lymphocytes # (1.0-4.8) k/uL ABG pCO2 50 H (35-45) mmHg ABG pO2 81 L (83-108) mmHg ABG HCO3 33 H (21-25) mmol/L ABG Total CO2 34 H (19-24) mmol/L Chloride (98-107) mmol/L Carbon Dioxide (22-30) mmol/L BUN (9-20) mg/dL Creatinine (0.66-1.25) mg/dL Glucose (74-99) mg/dL POC Glucose (mg/dL) 131 H (75-99) mg/dL Calcium (8.4-10.2) mg/dL Magnesium (1.6-2.3) mg/dL Microbiology - Last 24 Hours (Table) 03/18/18 11:40 Gram Stain - Final Sputum Sputum Culture - Final Pseudomonas aeruginosa Assessment and Plan Assessment: Impression: 1 acute hypoxic and hypercapnic respiratory failure secondary to acute exacerbation of COPD. requiring intubation and mechanical ventilation. Also requiring propofol, fentanyl, and Nimbex. 2 failed BiPAP therapy, requiring mechanical ventilation. 3 advanced COPD with chronic hypoxic respiratory failure 4 left upper lobe calcified granuloma 5 minimal troponin leak, felt to be not clinically significant. 6 history of inferior vena cava filter placement, questionable history of pulmonary embolism or DVT. 7 history of right above-knee amputation 8 history of tobacco dependence syndrome. 9 bilateral pneumonia secondary to pseudomonas aeruginosa presently on Zosyn and Levaquin. Recommendation: Reviewed the patient chest x-ray, ventilator settings, all labs , and recommended no plans to wean today, or even no plans to interrupt sedation since the patient is going for tracheostomy and PEG tube placement today. This will be done by Dr. max. In the meantime we will continue GI and DVT prophylaxis, ventilatory support, nutritional support, antibiotics for pseudomonas aeruginosa pneumonia, bronchodilators, steroids, daily trials of weaning once tracheostomy is done. I still have a feeling that the patient will be extremely difficult to wean eventually from mechanical ventilation considering the severity of his COPD and his bilateral pseudomonas aeruginosa pneumonia. Patient remains critically ill, prognosis is definitely guarded, son was made aware yesterday of his condition, he remains full code. Critical care time is 40 minutes. Time with Patient: Greater than 30
[2018-03-21 11:23] VITALS: BMI 24.7
[2018-03-21] MEDS ORDERED: HYDROGEN PEROXIDE BOTTLE TOPICAL ONE (11:24)
[2018-03-21] MEDS: fentaNYL (PF) 1,000 MCG in SODIUM CHLORIDE 0.9% 80 ML IV SCH (11:40)
[2018-03-21 12:21] LABS: Glucose,Whole Blood 127 mg/dL (75-99)
[2018-03-21] MEDS ORDERED: BUPIVACAIN-EPI 0.25%-1:200,000 30 ML VIAL SQ ONE ×2 (14:53)
--- NOTE | 2018-03-21 17:34 | P.OP ---
Date of Procedure: 03/21/18 Procedure(s) Performed: PREOPERATIVE DIAGNOSIS: Respiratory failure, malnutrition POSTOPERATIVE DIAGNOSIS: Same PROCEDURE: Tracheostomy, EGD with PEG tube placement SURGEON: Nic EBL: Minimal ANESTHESIA: General COMPLICATIONS: None OPERATIVE PROCEDURE: Patient was placed in the operative table in the supine position. A shoulder roll was utilized. The neck was prepped and draped in usual sterile fashion. The skin was infiltrated with local anesthesia. A small cervical incision was created using the scalpel. Dissection through the subcutaneous fat and platysma layer took place using electrocautery. The underlying strap muscles were divided in the midline. The thyroid isthmus was divided using electrocautery as well. No bleeding was seen. The trachea was easily identified at this time. The endotracheal tube was advanced and the balloon was reinflated. The patient was preoxygenated with 100% FiO2. The FiO2 was then brought down to room air. Once the end title oxygen level was less than 35 a vertical tracheostomy was created using the electrocautery. This went through the second and third tracheal ring. The patient was again preoxygenated with 100% FiO2. The blind lacer was utilized. Carefully the endotracheal tube was withdrawn just proximal to our tracheostomy. The 8- Spanish Shiley fenestrated tracheostomy catheter was advanced under direct visualization into the trachea. The obturator was inserted. This was then connected to the ventilator. Positive end tidal CO2 was confirmed. The tracheal ties were utilized. The trach was sutured to the skin superiorly using 2 separate 0 silk sutures. The skin was closed using 3-0 Vicryl sutures. A dressing was applied. The patient was kept in the supine position on the operating room table. The Olympus gastroscope was inserted into the oropharynx and passed under direct visualization to the region of the duodenum. No obstruction was seen. The pylorus was widely patent. The stomach was carefully inspected. The stomach was fully insufflated with air. The abdominal wall was inspected. The light was seen shining through the abdominal wall in the left upper quadrant. This site was chosen for PEG tube placement. The area was prepped in the usual sterile fashion. A small vertical incision was made using the scalpel. The Seldinger needle was advanced into the lumen of the stomach the wire was advanced. The wire was grasped with an endoscopic snare. The wire was pulled through the oropharynx. The catheter was then threaded over the guidewire and the guidewire and catheter were pulled anteriorly until the hub of the PEG tube catheter was seated against the anterior wall the stomach. The circular bolster was applied and tightened down. The endoscope was then readvanced into the stomach. There was no evidence of any bleeding and there was appropriate tightness on the bolster. The catheter was cut appropriately. The dual port feeding adapter was applied. DISPOSITION: Stable to ICU
[2018-03-21 18:11] LABS: Glucose,Whole Blood 141 mg/dL (75-99)
--- NOTE | 2018-03-21 19:06 | P.PN ---
Subjective pt is 68 yo m with severe and advanced COPD, pt failed bipap therapy and needed mechanical intubation ,pt is been followed closely in the icu BY critical pulmonary care team . pt is on steroid and zithromax. pt is on iv fluid also , pt has leukocytosis . 03/19/2018 Patient remains in the ICU intubated. Patient had a sedation holiday today with no significant response from the patient. Patient might end up needing tracheostomy. To discharge. pt is on steroid and zithromax. pt is on iv fluid also , pt has leukocytosis which is trending down from 17-14 K. Repeat chest x- ray: Bilateral atelectasis. Patient is been followed closely by pulmonary/ critical care team. 03/20/2018 Patient intubated and sedated in the ICU. He failed a sedation holiday. Critical care team are managing the patient ventilator. And it looks like patient unlikely he is going to be extubated and he might need tracheostomy. Family at bedside are considered this option currently. Leukocytosis improvement down to 11.8 K. BMP is unremarkable with creatinine 0.4. He is on Levaquin and Zosyn, has Pseudomonas in sputum culture.anticipation showing possible pneumonia 03/21/2018 pt is status post Tracheostomy, EGD with PEG tube placement. pt remains intubated and in the ICU in critical condition with little improvement in his condition Review of system: None applicable Medication: Albuterol, artificial tears, Pulmicort, chlorhexidine, Pepcid, fentanyl citrate, formoterol fumarate, heparin, Levaquin, Atrovent, Solu-Medrol , Levophed, Zosyn, propofol Objective - Vital Signs Vital signs: Vital Signs Temp 97.5 F L 03/21/18 16:00 Pulse 65 03/21/18 19:00 Resp 16 03/21/18 19:00 BP 132/80 03/17/18 23:30 Pulse Ox 95 03/21/18 19:00 Intake & Output 03/21/18 03/21/18 03/22/18 06:59 18:59 06:59 Intake Total 1789.58 1581.420 78 Output Total 785 2320 40 Balance 1004.58 -738.580 38 Weight 74 kg Intake: IV 1366 1103 78 Piperacillin-Tazobactam 3 200 .375 gm In Sodium Chloride 0.9% 100 ml @ 25 mls/hr IVPB Q8HR [facility] Rx# :[id number] Pressure Bag 36 33 3 Sodium Chloride 0.9% 1, 1330 870 75 000 ml @ 75 mls/hr IV . [id number] [facility] Rx#:[id number] Intake, IV Titration 373.58 478.420 Amount Cisatracurium 200 mg In 123.58 Sodium Chloride 0.9% 180 ml @ 1 MCG/KG/MIN 4.44 mls/hr IV .Q24H [facility] Rx#: [id number] Piperacillin-Tazobactam 3 150 .375 gm In Sodium Chloride 0.9% 100 ml @ 25 mls/hr IVPB Q8HR [facility] Rx# :[id number] Propofol 1,000 mg In 100 378.636 Empty Bag 1 bag @ Titrate IV .Q0M [facility] Rx#: [id number] fentaNYL (PF) 1,000 mcg 99.784 In Sodium Chloride 0.9% 80 ml @ 60 MCG/HR 6 mls/ hr IV .[id number] [facility] Rx#: [id number] Tube Feeding 50 Output: Urine 785 2315 40 Estimated Blood Loss 5 Other: Voiding Method Indwelling Catheter Indwelling Catheter # Voids 0 ABP, PAP, CO, CI - Last Documented Arterial Blood Pressure 119/52 - Exam -GENERAL: The patient is intubated and sedated HEENT: Pupils are round and equally reacting to light. EOMI. No scleral icterus. No conjunctival pallor. Normocephalic, atraumatic. No pharyngeal erythema. No thyromegaly. CARDIOVASCULAR: S1 and S2 present. No murmurs, rubs, or gallops. -PULMONARY: Chest is clear to auscultation, scattered wheezing ABDOMEN: Soft, nontender, nondistended, normoactive bowel sounds. No palpable organomegaly. MUSCULOSKELETAL: No joint swelling or deformity. EXTREMITIES: No cyanosis, clubbing, or pedal edema. NEUROLOGICAL: Gross neurological examination did not reveal any focal deficits. SKIN: No rashes. - Labs CBC & Chem 7: 03/21/18 04:45 03/21/18 04:45 Labs: Abnormal Lab Results - Last 24 Hours (Table) 03/21/18 03/21/18 03/21/18 Range/Units 00:00 01:17 04:45 RBC 3.66 L (4.30-5.90) m/uL Hgb 11.4 L (13.0-17.5) gm/dL Hct 34.5 L (39.0-53.0) % Plt Count 120 L (150-450) k/uL Neutrophils # 9.4 H (1.3-7.7) k/uL Lymphocytes # 0.2 L (1.0-4.8) k/uL ABG pCO2 (35-45) mmHg ABG pO2 (83-108) mmHg ABG HCO3 (21-25) mmol/L ABG Total CO2 (19-24) mmol/L Chloride (98-107) mmol/L Carbon Dioxide (22-30) mmol/L BUN (9-20) mg/dL Creatinine (0.66-1.25) mg/dL Glucose (74-99) mg/dL POC Glucose (mg/dL) 163 H 147 H (75-99) mg/dL Calcium (8.4-10.2) mg/dL Magnesium (1.6-2.3) mg/dL 03/21/18 03/21/18 03/21/18 Range/Units 04:45 06:27 07:31 RBC (4.30-5.90) m/uL Hgb (13.0-17.5) gm/dL Hct (39.0-53.0) % Plt Count (150-450) k/uL Neutrophils # (1.3-7.7) k/uL Lymphocytes # (1.0-4.8) k/uL ABG pCO2 50 H (35-45) mmHg ABG pO2 81 L (83-108) mmHg ABG HCO3 33 H (21-25) mmol/L ABG Total CO2 34 H (19-24) mmol/L Chloride 111 H (98-107) mmol/L Carbon Dioxide 32 H (22-30) mmol/L BUN 21 H (9-20) mg/dL Creatinine 0.36 L (0.66-1.25) mg/dL Glucose 133 H (74-99) mg/dL POC Glucose (mg/dL) 131 H (75-99) mg/dL Calcium 7.4 L (8.4-10.2) mg/dL Magnesium 2.5 H (1.6-2.3) mg/dL 03/21/18 03/21/18 Range/Units 12:20 18:10 RBC (4.30-5.90) m/uL Hgb (13.0-17.5) gm/dL Hct (39.0-53.0) % Plt Count (150-450) k/uL Neutrophils # (1.3-7.7) k/uL Lymphocytes # (1.0-4.8) k/uL ABG pCO2 (35-45) mmHg ABG pO2 (83-108) mmHg ABG HCO3 (21-25) mmol/L ABG Total CO2 (19-24) mmol/L Chloride (98-107) mmol/L Carbon Dioxide (22-30) mmol/L BUN (9-20) mg/dL Creatinine (0.66-1.25) mg/dL Glucose (74-99) mg/dL POC Glucose (mg/dL) 127 H 141 H (75-99) mg/dL Calcium (8.4-10.2) mg/dL Magnesium (1.6-2.3) mg/dL Microbiology - Last 24 Hours (Table) 03/18/18 11:40 Gram Stain - Final Sputum Sputum Culture - Final Pseudomonas aeruginosa Assessment and Plan Assessment: acute hypoxic respiratory failure severe and advance copd Hospital-acquired pneumonia with pseudomonas. s/p mechanical ventilation granuloma leukocytosis , mostly reactive secondary to steroids Plan: pt remains in the icu and been followed by critical care team . c/w emperic antibiotic, breathing treatment and steroids Labs and medication were reviewed.. Continue same treatment. Continue with symptomatic treatment. Resume home medication. Monitor lytes and vitals. DVT and GI prophylaxis. Further recommendations of the clinical course of the patient DVT prophylaxis: Subcutaneous heparin GI Prophylaxis: Pepcid Prognosis is guarded
[2018-03-21] MEDS: LORazepam 2 MG/ML INJ IV PRN (21:29)
[2018-03-21] MEDS: LEVOFLOXACIN 750MG-D5W PMX 750 MG in DEXTROSE/WATER 1 150ML.BAG IVPB SCH (22:12)
[2018-03-22 00:01] LABS: Glucose,Whole Blood 108 mg/dL (75-99)
[2018-03-22] MEDS: HEPARIN SODIUM,PORCINE 5,000 UNIT/ML 1 ML VIAL SQ SCH ×3 (00:20→16:43)
[2018-03-22] MEDS: methylPREDNISolone SOD SUCCI 125 MG/2 ML VIAL IV SCH ×4 (00:20→18:05)
[2018-03-22] MEDS: ARTIFICIAL TEARS-HYPROMELLOSE DROPS 15 ML BTL BOTH EYES SCH ×3 (00:20→08:48)
[2018-03-22] MEDS: INSULIN ASPART (NovoLOG) 100 UNIT/ML VIAL SQ SCH ×4 (00:20→18:20)
[2018-03-22] MEDS: PIPERACILLIN-TAZOBACTAM 3.375 GM in SODIUM CHLORIDE 0.9% 100 ML IVPB SCH ×3 (01:19→16:42)
[2018-03-22] MEDS: SODIUM CHLORIDE 0.9% 1,000 ML IV SCH ×2 (01:20→14:36)
[2018-03-22] MEDS: fentaNYL (PF) 1,000 MCG in SODIUM CHLORIDE 0.9% 80 ML IV SCH ×2 (03:24→16:51)
[2018-03-22 05:59] LABS: Basophils % (A) 0 %; Eosinophils % (A) 0 %; HCT 35.6 % (39.0-53.0); HGB 11.5 gm/dL (13.0-17.5); Hypochromasia Slight; Lymphocytes # (A) 0.2 k/uL (1.0-4.8); Lymphocytes % (A) 3 %; MCH 30.8 pg (25.0-35.0); MCHC 32.3 g/dL (31.0-37.0); MCV 95.4 fL (80.0-100.0); Mean Platelet Volume 6.5; Monocytes # (A) 0.2 k/uL (0-1.0); Monocytes % (A) 4 %; Neutrophils # (A) 6.3 k/uL (1.3-7.7); Neutrophils % (A) 92 %; Platelet Count 132 k/uL (150-450); RBC 3.73 m/uL (4.30-5.90); RDW 15.1 % (11.5-15.5); WBC 6.8 k/uL (3.8-10.6)
[2018-03-22 06:12] LABS: ALT 29 U/L (21-72); AST 6 U/L (17-59); Albumin 2.1 g/dL (3.5-5.0); Alkaline Phosphatase 34 U/L (38-126); Anion Gap -1 mmol/L; Blood Urea Nitrogen 24 mg/dL (9-20); Calcium 7.4 mg/dL (8.4-10.2); Carbon Dioxide 38 mmol/L (22-30); Chloride 107 mmol/L (98-107); Glucose 124 mg/dL (74-99); Magnesium 2.5 mg/dL (1.6-2.3); Phosphorus 2.5 mg/dL (2.5-4.5); Potassium 3.8 mmol/L (3.5-5.1); Sodium 144 mmol/L (137-145); Total Bilirubin 0.3 mg/dL (0.2-1.3); Total Protein 4.3 g/dL (6.3-8.2)
[2018-03-22 06:55] LABS: Glucose,Whole Blood 97 mg/dL (75-99)
[2018-03-22] MEDS: LORazepam 2 MG/ML INJ IV PRN ×4 (07:24→20:05)
[2018-03-22 07:55] LABS: ABG Base Excess 14.1 mmol/L; ABG HCO3 39 mmol/L (21-25); ABG PCO2 66 mmHg (35-45); ABG PH 7.38 (7.35-7.45); ABG PO2 64 mmHg (83-108); ABG TCO2 41 mmol/L (19-24)
[2018-03-22] MEDS: BUDESONIDE 0.5 MG/2 ML NEBU INHALATION SCH ×2 (07:58→19:10)
[2018-03-22] MEDS: FORMOTEROL FUMARATE 20 MCG/2 ML NEBU INHALATION SCH ×2 (07:58→19:10)
[2018-03-22] MEDS: IPRATROPIUM-ALBUTEROL 3 ML NEB INHALATION SCH ×4 (07:58→19:10)
--- NOTE | 2018-03-22 08:43 | XR ---
EXAMINATION TYPE: XR chest 1V portable DATE OF EXAM: 03/22/2018 COMPARISON: Prior chest x-ray 03/21/2018 HISTORY: Tracheostomy tube placement TECHNIQUE: Single frontal view of the chest is obtained. FINDINGS: There is been interval placement of a tracheostomy tube which is overlying the tracheal ai r column. Right-sided PICC line remains in place. Endotracheal and orogastric tubes have been removed . No pneumothorax. Bibasilar density persists. Heart size is stable. IMPRESSION: Interval tracheostomy tube placement. Correlate for possible pneumonia, congestive heart failure, ARDS, pleural effusion not excluded.
[2018-03-22] MEDS: CHLORHEXIDINE GLUCONATE 15 ML CUP MUCOUS MEM SCH ×2 (08:48→20:19)
[2018-03-22] MEDS: FAMOTIDINE 20 MG/2 ML VIAL IV SCH ×2 (08:48→20:19)
--- NOTE | 2018-03-22 10:25 | P.PN ---
<Keyanna Dominguez Stuart - Last Filed: 03/22/18 10:22> Subjective Progress Note Date: 03/22/18 HISTORY OF PRESENT ILLNESS: 68-year-old male admitted to the intensive care unit with respiratory failure. He is s/p trach and peg. POD #1. Chest x-ray this morning: Correlate for possible pneumonia, congestive heart failure, records, pleural effusions not excluded. PHYSICAL EXAM: VITAL SIGNS: Currently stable. GENERAL: Well-developed in no acute distress. HEENT: Trach with air leak noted. No sclera icterus. Extraocular movements grossly intact. Moist buccal mucosa. Head is atraumatic, normocephalic.No nasal drainage. NECK: Supple without lymphadenopathy. CHEST: Non-labored respirations and equal bilateral excursions-remains on mechanical ventilation. CARDIOVASCULAR: Regular rate with regular rhythm. ABDOMEN: Soft. Nondistended. PEG tube noted. Dressing CDI. MUSCULOSKELETAL: No clubbing or cyanosis. Right AKA noted. NEUROLOGIC: Unable to assess secondary to mechanical ventilation PSYCH: Unable to assess secondary to mechanical ventilation SKIN: Well perfused. Good skin turgor. ASSESSMENT: 1. Acute hypoxic and hypercapnic respiratory failure secondary to acute exacerbation of COPD 2. S/P Trach and PEG tube insertion, POD #1 PLAN: 1. Ventilator management per Dr. Martinez 2. May begin tube feedings today. Advance to goal as tolerated. Nurse practitioner note has been reviewed by physician. Signing provider agrees with the documented findings, assessment, and plan of care. Objective - Vital Signs Vital signs: Vital Signs Temp 97.7 F 03/22/18 08:00 Pulse 53 L 03/22/18 09:00 Resp 16 03/22/18 09:00 BP 132/80 03/17/18 23:30 Pulse Ox 95 03/22/18 09:00 Intake & Output 03/21/18 03/22/18 03/22/18 18:59 06:59 18:59 Intake Total 1498.271 9365.4 534 Output Total 2320 1020 205 Balance -738.580 35.4 329 Weight 74 kg Intake: IV 1103 961 334 Piperacillin-Tazobactam 3 200 100 100 .375 gm In Sodium Chloride 0.9% 100 ml @ 25 mls/hr IVPB Q8HR [facility] Rx# :[id number] Pressure Bag 33 36 9 Sodium Chloride 0.9% 1, 870 825 225 000 ml @ 75 mls/hr IV . [id number] [facility] Rx#:[id number] Intake, IV Titration 478.420 94.4 200 Amount Cisatracurium 200 mg In 200 Sodium Chloride 0.9% 180 ml @ 1 MCG/KG/MIN 4.44 mls/hr IV .Q24H [facility] Rx#: [id number] Propofol 1,000 mg In 378.636 Empty Bag 1 bag @ Titrate IV .Q0M [facility] Rx#: [id number] fentaNYL (PF) 1,000 mcg 99.784 94.4 In Sodium Chloride 0.9% 80 ml @ 60 MCG/HR 6 mls/ hr IV .[id number] [facility] Rx#: [id number] Output: Urine 2315 1020 205 Estimated Blood Loss 5 Other: Voiding Method Indwelling Catheter Indwelling Catheter Indwelling Catheter # Voids 0 ABP, PAP, CO, CI - Last Documented Arterial Blood Pressure 124/51 - Labs CBC & Chem 7: 03/22/18 05:00 03/22/18 05:00 Labs: Abnormal Lab Results - Last 24 Hours (Table) 03/21/18 03/21/18 03/21/18 Range/Units 12:20 18:10 23:59 RBC (4.30-5.90) m/uL Hgb (13.0-17.5) gm/dL Hct (39.0-53.0) % Plt Count (150-450) k/uL Lymphocytes # (1.0-4.8) k/uL ABG pCO2 (35-45) mmHg ABG pO2 (83-108) mmHg ABG HCO3 (21-25) mmol/L ABG Total CO2 (19-24) mmol/L ABG O2 Saturation (94-97) % Carbon Dioxide (22-30) mmol/L BUN (9-20) mg/dL Creatinine (0.66-1.25) mg/dL Glucose (74-99) mg/dL POC Glucose (mg/dL) 127 H 141 H 108 H (75-99) mg/dL Calcium (8.4-10.2) mg/dL Magnesium (1.6-2.3) mg/dL AST (17-59) U/L Alkaline Phosphatase (38-126) U/L Total Protein (6.3-8.2) g/dL Albumin (3.5-5.0) g/dL 03/22/18 03/22/18 03/22/18 Range/Units 05:00 05:00 07:44 RBC 3.73 L (4.30-5.90) m/uL Hgb 11.5 L (13.0-17.5) gm/dL Hct 35.6 L (39.0-53.0) % Plt Count 132 L (150-450) k/uL Lymphocytes # 0.2 L (1.0-4.8) k/uL ABG pCO2 66 H (35-45) mmHg ABG pO2 64 L (83-108) mmHg ABG HCO3 39 H (21-25) mmol/L ABG Total CO2 41 H (19-24) mmol/L ABG O2 Saturation 92.0 L (94-97) % Carbon Dioxide 38 H (22-30) mmol/L BUN 24 H (9-20) mg/dL Creatinine 0.42 L (0.66-1.25) mg/dL Glucose 124 H (74-99) mg/dL POC Glucose (mg/dL) (75-99) mg/dL Calcium 7.4 L (8.4-10.2) mg/dL Magnesium 2.5 H (1.6-2.3) mg/dL AST 6 L (17-59) U/L Alkaline Phosphatase 34 L (38-126) U/L Total Protein 4.3 L (6.3-8.2) g/dL Albumin 2.1 L (3.5-5.0) g/dL <Louis Lucero - Last Filed: 03/22/18 14:10> Subjective As above. Patient had an air leak when the balloon was loosened to the upper limits of normal last night. Airleak is exacerbated when the patient appears agitated. Tolerating tube feeds at 20. Good volume on the ventilator currently. People at 5. Balloon does not appear to have a leak. Objective - Vital Signs Vital signs: Vital Signs Temp 97.9 F 03/22/18 12:00 Pulse 93 03/22/18 13:00 Resp 22 03/22/18 13:00 BP 132/80 03/17/18 23:30 Pulse Ox 93 L 03/22/18 13:00 Intake & Output 03/21/18 03/22/18 03/22/18 18:59 06:59 18:59 Intake Total 1094.629 7807.4 1037.558 Output Total 2320 1020 370 Balance -738.580 35.4 667.558 Weight 74 kg 74 kg Intake: IV 1103 961 568 Piperacillin-Tazobactam 3 200 100 100 .375 gm In Sodium Chloride 0.9% 100 ml @ 25 mls/hr IVPB Q8HR [facility] Rx# :[id number] Pressure Bag 33 36 18 Sodium Chloride 0.9% 1, 870 825 450 000 ml @ 75 mls/hr IV . [id number] [facility] Rx#:[id number] Intake, IV Titration 478.420 94.4 419.558 Amount Cisatracurium 200 mg In 200 Sodium Chloride 0.9% 180 ml @ 1 MCG/KG/MIN 4.44 mls/hr IV .Q24H [facility] Rx#: [id number] Propofol 1,000 mg In 378.636 162.308 Empty Bag 1 bag @ Titrate IV .Q0M [facility] Rx#: [id number] fentaNYL (PF) 1,000 mcg 99.784 94.4 57.25 In Sodium Chloride 0.9% 80 ml @ 60 MCG/HR 6 mls/ hr IV .[id number] [facility] Rx#: [id number] Tube Feeding 20 Other 30 Output: Urine 2315 1020 370 Estimated Blood Loss 5 Other: Voiding Method Indwelling Catheter Indwelling Catheter Indwelling Catheter # Voids 0 ABP, PAP, CO, CI - Last Documented Arterial Blood Pressure 191/80 - Labs CBC & Chem 7: 03/22/18 05:00 03/22/18 05:00 Labs: Abnormal Lab Results - Last 24 Hours (Table) 03/21/18 03/21/18 03/22/18 Range/Units 18:10 23:59 05:00 RBC 3.73 L (4.30-5.90) m/uL Hgb 11.5 L (13.0-17.5) gm/dL Hct 35.6 L (39.0-53.0) % Plt Count 132 L (150-450) k/uL Lymphocytes # 0.2 L (1.0-4.8) k/uL ABG pCO2 (35-45) mmHg ABG pO2 (83-108) mmHg ABG HCO3 (21-25) mmol/L ABG Total CO2 (19-24) mmol/L ABG O2 Saturation (94-97) % Carbon Dioxide (22-30) mmol/L BUN (9-20) mg/dL Creatinine (0.66-1.25) mg/dL Glucose (74-99) mg/dL POC Glucose (mg/dL) 141 H 108 H (75-99) mg/dL Calcium (8.4-10.2) mg/dL Magnesium (1.6-2.3) mg/dL AST (17-59) U/L Alkaline Phosphatase (38-126) U/L Total Protein (6.3-8.2) g/dL Albumin (3.5-5.0) g/dL 03/22/18 03/22/18 03/22/18 Range/Units 05:00 07:44 11:56 RBC (4.30-5.90) m/uL Hgb (13.0-17.5) gm/dL Hct (39.0-53.0) % Plt Count (150-450) k/uL Lymphocytes # (1.0-4.8) k/uL ABG pCO2 66 H (35-45) mmHg ABG pO2 64 L (83-108) mmHg ABG HCO3 39 H (21-25) mmol/L ABG Total CO2 41 H (19-24) mmol/L ABG O2 Saturation 92.0 L (94-97) % Carbon Dioxide 38 H (22-30) mmol/L BUN 24 H (9-20) mg/dL Creatinine 0.42 L (0.66-1.25) mg/dL Glucose 124 H (74-99) mg/dL POC Glucose (mg/dL) 106 H (75-99) mg/dL Calcium 7.4 L (8.4-10.2) mg/dL Magnesium 2.5 H (1.6-2.3) mg/dL AST 6 L (17-59) U/L Alkaline Phosphatase 34 L (38-126) U/L Total Protein 4.3 L (6.3-8.2) g/dL Albumin 2.1 L (3.5-5.0) g/dL Assessment and Plan (1) Respiratory failure Current Visit: Yes Status: Acute Code(s): J96.90 - RESPIRATORY FAILURE, UNSP , UNSP W HYPOXIA OR HYPERCAPNIA SNOMED Code(s): 321748476
[2018-03-22] MEDS: PROPOFOL 1,000 MG in EMPTY BAG 1 BAG IV SCH ×2 (10:41→12:03)
[2018-03-22] MEDS: CISATRACURIUM 200 MG in SODIUM CHLORIDE 0.9% 180 ML IV SCH (11:01)
[2018-03-22 11:58] LABS: Glucose,Whole Blood 106 mg/dL (75-99)
[2018-03-22] MEDS: CLEVIDIPINE BUTYRATE 25 MG in EMPTY BAG 1 BAG IV SCH ×2 (14:35→20:18)
--- NOTE | 2018-03-22 16:11 | P.PN ---
Subjective Progress Note Date: 03/22/18 Principal diagnosis: Acute hypoxic and hypercapnic respiratory failure secondary to COPD exacerbation.and Pseudomonas pneumonia involving both lower lobes. This is a 68-year-old male patient with known history of COPD [place] more than approximately 4 years ago. Since then he has not seen a sports medicine physician. The patient has advanced COPD. The patient has been oxygen dependent for many years. He has been on a combination of Advair and Incrus regarding his COPD and utilizes albuterol rescue inhaler on an as-needed basis. He is known to have ulcerative colitis and he has received several bouts of systemic steroids on outpatient basis regarding his colitis. He is not take any form of biologic agents or maintenance agents regarding his inflammatory bowel disease. 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 He claims that he quit smoking approximately a month ago. He came into the hospital because of increased cough , chest congestion, chest tightness and wheezing and he was in considerable amount of respiratory distress at time of arrival. He was placed on BiPAP at a pressure of 12/6 cm of water and FiO2 of 40%. He is feeling better. Is less short of breath. At the time of my arrival, he was still a mild degree of respiratory distress although reported that his condition was improving. Blood gases was done in emergency department with an FiO2 of 50% while him being on a BiPAP and the pH was at 7.36 with a pCO2 of 43 and pO2 of 188. Chest x-ray shows COPD and the CAT scan of the chest showed no evidence of any pulmonary embolism. 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 There was coronary calcifications. There is extensive amount of emphysematous changes bilaterally. No nausea. No vomiting. No abdominal pain. No altered mentation. No angina. No palpitation. No cardiac rhythm disturbance. On 03/17/2018, the patient continues to be quite short of breath secondary to his underlying COPD exacerbation. His requiring BiPAP for respiratory support. Despite being aggressively treated with a combination of bronchodilators steroids and antibiotics, the patient continues to BE short of breath and he has a very limited exercise capacity as the patient gets short of breath even being moved to a bedside commode. No chest pain. No nausea or vomiting. No altered mentation. Chest x-ray shows atelectatic changes in the right lung base. There is a left upper lobe nodular density which is a calcified granuloma. No fever. No chills. No leukocytosis. No other complaints otherwise. He remains on IV heparin. On 03/18/2018, I'm seeing the patient for follow-up, and apparently last night, his respiratory condition deteriorated, patient was noted to be profoundly short of breath, and he was using his accessory muscles in spite of being on BiPAP. Hence the patient was intubated, and he is now on mechanical ventilation. His ventilator settings are assist control rate of 24 tidal volume of 400 FiO2 of 35% and PEEP of 5. Patient is also on propofol at 50 mcg/ kg/minute. Norepinephrine at 0.02 mcg/kg/m, patient is quite sedated, and I have no plans to interrupt sedation this morning since the patient was just extubated last night. His chest x-ray was reviewed, and it showed mostly bibasilar atelectasis. CBC showed leukocytosis with WBC count of 17.6 hemoglobin is 12 electrolytes were noted to be normal and normal renal profile noted. ABG this morning on 50% showed pO2 of 191 pCO2 of 45 pH of 7.43, hence his FiO2 was cut down to 35%. All his meds were reviewed, he is presently on DuoNeb, Zithromax, Pulmicort, Pepcid, Perforomist, heparin subcu, NovoLog insulin, methylprednisolone, lorazepam, propofol and norepinephrine. Patient was reevaluated today on 03/19/2018, remains in the ICU, mechanically ventilated, his ventilator settings are basically unchanged, remains on assist control rate of 24 FiO2 35%, tidal volume of 400 and PEEP of 5. Remains on A fall presently at 75 mcg/kg/m, he is also on fentanyl roughly about 25 g per hour. Slight drop in his sedation including cutting the propofol and fentanyl, patient became extremely agitated, he was struggling to breathe and he was noted to be asynchronous with the ventilator. Hence I had to sedate him again, and clearly the patient is not ready for any form of weaning at this point. Kept on a higher dose of propofol and her dose of fentanyl, he is presently off norepinephrine. Could not actually interrupt sedation enough to assess mental status today. Chest x-ray was reviewed, continues to show by basilar atelectasis, cannot rule out infiltrate/pneumonia. ABG this morning on the above settings showed a pO2 of 89 pCO2 of 46 pH of 7.43. CBC is showing leukocytosis with WBC 14.3 hemoglobin is 11.9. Electrolytes were noted to be normal, renal profile was noted to be normal. Meds were reviewed, remains on DuoNeb, Zithromax, heparin subcu, Solu-Medrol, Perforomist, and Pulmicort. Patient was reevaluated today on 03/20/2018. Remains in the ICU, remains on mechanical ventilation. Ventilator settings are basically about the same, he is on assist control rate of 24 tidal volume of 400, FiO2 35% and PEEP of 5. Remains on propofol, fentanyl, and today I had to add Nimbex patient became extremely agitated in spite of maximizing propofol and fentanyl. And he was completely asynchronous with the ventilator. And we got to the point where he was not being ventilated properly. I was at bedside all along, and recommended Nimbex which was given 10 mg bolus, and I have recommended adding a Nimbex drip. Family is at bedside, and I discussed his condition with his son and felt that the patient's condition is quite severe, and the patient will likely benefit from early tracheostomy. Yesterday we had a similar situation where in as soon as we cut down on the sedation, patient became extremely agitated, remained unresponsive, and he was basically not synchronous with the ventilator. Obviously the patient has severe underlying COPD, and I have noted some auto peeping. Recommended prolonging his expiratory phase mostly by increasing the flow rates, cutting the tidal volume, and cutting the rate. His expiratory phase had to be prolonged and now with the I: E ratio is 1:4. That is about the best way to a loud the patient to fully exhale and not develop auto PEEP. Chest x-ray now is showing by lateral infiltrates, and his sputum came back positive for Pseudomonas final sensitivity is pending. His ABG this morning showed a pO2 of 70 pCO2 of 48 pH of 7.43. Electrolytes were noted to be relatively normal CBC is relatively normal. Reevaluated today on 03/21/2018. Patient remains on mechanical ventilation in the intensive care unit. He is presently on a tidal volume of 400, assist control rate of 16, FiO2 of 35%, and PEEP of 5. ABG showed a pO2 of 81 pCO2 of 50 pH of 7.43. Patient is hemodynamically stable, not requiring any pressors. However he is on fentanyl at 50 g per hour, Nimbex, propofol at 55 mcg/kg/m. Patient is going for tracheostomy today, initially his son was reluctant to agree to proceed with tracheostomy, however he changed his mind and agreed to it to be done this week. General surgery was consulted, and the patient may have his tracheostomy and PEG tube placement later today. In the meantime his tube feeding is on hold. All his labs were reviewed including CBC, basic metabolic profile, renal profile. And I have made adjustments on his ventilator settings. Plan to keep him on propofol fentanyl and Nimbex, will likely start addressing weaning trials in the next 24 hours hopefully his tracheostomy will be done today. Chest x-ray is showing worsening lateraldisease, and his sputum was positive for Pseudomonas pneumonia. Obviously his pneumonia is secondary to Pseudomonas aeruginosa. Reevaluated today on 03/22/2018, patient remains on mechanical ventilation off Nimbex this morning, remains on propofol and fentanyl, and I'm planning to gradually discontinue both to the point he could arouse the patient, and hopefully address his mental status today. As we cut down on the dose, patient became a bit agitated, and his blood pressure was noted to be elevated, hence I will recommend clevidipine drip for blood pressure. We will continue to titrate his fentanyl and propofol accordingly. Son is at bedside, updated on his condition ventilator settings todaytidal volume of 450, assist control rate of 16 PEEP of 5 and FiO2 of 40%. Evidence of leak was noted around the tracheostomy site, hence the tidal volume was increased from 400-450 to make up for the volume loss. ABG this morning showed a pO2 of 64 pCO2 of 66 and pH of 7.39, and this is basically what I believe his baseline ABG is normally.chest x- ray showed bibasilar infiltrates consistent with pneumonia cultures were noted to be positive for pseudomonas aeruginosa per Objective - Vital Signs Vital signs: Vital Signs Temp 97.9 F 03/22/18 12:00 Pulse 122 H 03/22/18 15:36 Resp 25 H 03/22/18 15:00 BP 132/80 03/17/18 23:30 Pulse Ox 93 L 03/22/18 15:00 Intake & Output 03/21/18 03/22/18 03/22/18 18:59 06:59 18:59 Intake Total 4794.119 2739.4 1348.541 Output Total 2320 1020 570 Balance -738.580 35.4 778.541 Weight 74 kg 74 kg Intake: IV 1103 961 802 Piperacillin-Tazobactam 3 200 100 100 .375 gm In Sodium Chloride 0.9% 100 ml @ 25 mls/hr IVPB Q8HR [facility] Rx# :[id number] Pressure Bag 33 36 27 Sodium Chloride 0.9% 1, 870 825 675 000 ml @ 75 mls/hr IV . [id number] [facility] Rx#:[id number] Intake, IV Titration 478.420 94.4 436.541 Amount Cisatracurium 200 mg In 200 Sodium Chloride 0.9% 180 ml @ 1 MCG/KG/MIN 4.44 mls/hr IV .Q24H [facility] Rx#: [id number] Propofol 1,000 mg In 378.636 179.291 Empty Bag 1 bag @ Titrate IV .Q0M [facility] Rx#: [id number] fentaNYL (PF) 1,000 mcg 99.784 94.4 57.25 In Sodium Chloride 0.9% 80 ml @ 60 MCG/HR 6 mls/ hr IV .[id number] [facility] Rx#: [id number] Tube Feeding 80 Other 30 Output: Urine 2315 1020 570 Estimated Blood Loss 5 Other: Voiding Method Indwelling Catheter Indwelling Catheter Indwelling Catheter # Voids 0 ABP, PAP, CO, CI - Last Documented Arterial Blood Pressure 158/73 - Exam Physical Exam: Revealed a 68-year-old white male, sedated,ventilated on mechanical ventilation, via tracheostomy. Head: Atraumatic normocephalic. HEENT:[Neck is supple.] [No neck masses.] [No thyromegaly.] [No JVD.] PERRLA, EOMI, tracheostomy seems to be intact. Chest: [Crackles and rhonchi and wheezes bilaterally, more so at the bases. Symmetrical chest expansion. No chest wall tenderness.] Cardiac Exam: [Normal S1 and S2, no S3 gallop, no murmur.] Abdomen: [Soft, nontender, no megaly, no rebound, no guarding, normal bowel sounds.] Extremities: [No clubbing, 1+ bipedal edema, edema was also noted in the forearms bilaterally no cyanosis.] There is evidence of right above-knee amputation noted to Neurological Exam: Sedated, could not be assessed. Patient remains on propofol and fentanyl, both are being weaned down. Psychiatric: Sedated cannot be addressed. Lymphatics: No lymphadenopathy. Skin: No rashes. Except areas of ecchymosis noted in upper extremities with edema. - Labs CBC & Chem 7: 03/22/18 05:00 03/22/18 05:00 Labs: Abnormal Lab Results - Last 24 Hours (Table) 03/21/18 03/21/18 03/22/18 Range/Units 18:10 23:59 05:00 RBC 3.73 L (4.30-5.90) m/uL Hgb 11.5 L (13.0-17.5) gm/dL Hct 35.6 L (39.0-53.0) % Plt Count 132 L (150-450) k/uL Lymphocytes # 0.2 L (1.0-4.8) k/uL ABG pCO2 (35-45) mmHg ABG pO2 (83-108) mmHg ABG HCO3 (21-25) mmol/L ABG Total CO2 (19-24) mmol/L ABG O2 Saturation (94-97) % Carbon Dioxide (22-30) mmol/L BUN (9-20) mg/dL Creatinine (0.66-1.25) mg/dL Glucose (74-99) mg/dL POC Glucose (mg/dL) 141 H 108 H (75-99) mg/dL Calcium (8.4-10.2) mg/dL Magnesium (1.6-2.3) mg/dL AST (17-59) U/L Alkaline Phosphatase (38-126) U/L Total Protein (6.3-8.2) g/dL Albumin (3.5-5.0) g/dL 03/22/18 03/22/18 03/22/18 Range/Units 05:00 07:44 11:56 RBC (4.30-5.90) m/uL Hgb (13.0-17.5) gm/dL Hct (39.0-53.0) % Plt Count (150-450) k/uL Lymphocytes # (1.0-4.8) k/uL ABG pCO2 66 H (35-45) mmHg ABG pO2 64 L (83-108) mmHg ABG HCO3 39 H (21-25) mmol/L ABG Total CO2 41 H (19-24) mmol/L ABG O2 Saturation 92.0 L (94-97) % Carbon Dioxide 38 H (22-30) mmol/L BUN 24 H (9-20) mg/dL Creatinine 0.42 L (0.66-1.25) mg/dL Glucose 124 H (74-99) mg/dL POC Glucose (mg/dL) 106 H (75-99) mg/dL Calcium 7.4 L (8.4-10.2) mg/dL Magnesium 2.5 H (1.6-2.3) mg/dL AST 6 L (17-59) U/L Alkaline Phosphatase 34 L (38-126) U/L Total Protein 4.3 L (6.3-8.2) g/dL Albumin 2.1 L (3.5-5.0) g/dL Assessment and Plan Assessment: Impression: 1 acute hypoxic and hypercapnic respiratory failure secondary to acute exacerbation of COPD. requiring intubation and mechanical ventilation. 2 failed BiPAP therapy, requiring mechanical ventilation. 3 advanced COPD with chronic hypoxic respiratory failure 4 left upper lobe calcified granuloma 5 minimal troponin leak, felt to be not clinically significant. 6 history of inferior vena cava filter placement, questionable history of pulmonary embolism or DVT. 7 history of right above-knee amputation 8 history of tobacco dependence syndrome. 9 bilateral pneumonia secondary to pseudomonas aeruginosa presently on Zosyn and Levaquin. 10 status post tracheostomy,and PEG tube placement postoperative day #1 this was done because patient was felt to be extremely difficult to wean because of his underlying COPD and extensive pneumonia involving lower lobe. Recommendation: continue mechanical ventilation via tracheostomy, ventilator settings were adjusted accordingly and based on the ABG. Continue to wean fentanyl and propofol until we could assess mental status today. Continue antibiotics to cover for pseudomonas aeruginosa and he is presently on Levaquin and Zosyn. Continue nutritional support via PEG tube feeding. Patient had a PEG tube placed on 03/21/2018. Continue GI and DVT prophylaxis. Bronchodilators. Daily assessment of mental status and weaning trials if possible. Continue to monitor her labs on a daily basis and chest x-ray on a daily basis. Had a long discussion with his son at least 3 times today regarding his condition and updated on his overall clinical picture. He clearly understands that his dad is quite ill, he is critically ill but relatively stable. All issues were addressed with the son. Patient remains full code at present. Critical care time is 45 minutes Time with Patient: Greater than 30
[2018-03-22] MEDS: NOREPINEPHRINE 4 MG in SODIUM CHLORIDE 0.9% 250 ML IV SCH (17:45)
[2018-03-22] MEDS: HYDROmorphone 1 MG/ML 1 ML SYRINGE IVP PRN ×2 (18:05→21:34)
[2018-03-22 18:18] LABS: Glucose,Whole Blood 163 mg/dL (75-99)
[2018-03-22] MEDS: LEVOFLOXACIN 750MG-D5W PMX 750 MG in DEXTROSE/WATER 1 150ML.BAG IVPB SCH (20:19)
--- NOTE | 2018-03-22 21:11 | P.PN ---
Subjective pt is 68 yo m with severe and advanced COPD, pt failed bipap therapy and needed mechanical intubation ,pt is been followed closely in the icu BY critical pulmonary care team . pt is on steroid and zithromax. pt is on iv fluid also , pt has leukocytosis . 03/19/2018 Patient remains in the ICU intubated. Patient had a sedation holiday today with no significant response from the patient. Patient might end up needing tracheostomy. To discharge. pt is on steroid and zithromax. pt is on iv fluid also , pt has leukocytosis which is trending down from 17-14 K. Repeat chest x- ray: Bilateral atelectasis. Patient is been followed closely by pulmonary/ critical care team. 03/20/2018 Patient intubated and sedated in the ICU. He failed a sedation holiday. Critical care team are managing the patient ventilator. And it looks like patient unlikely he is going to be extubated and he might need tracheostomy. Family at bedside are considered this option currently. Leukocytosis improvement down to 11.8 K. BMP is unremarkable with creatinine 0.4. He is on Levaquin and Zosyn, has Pseudomonas in sputum culture.anticipation showing possible pneumonia 03/21/2018 pt is status post Tracheostomy, EGD with PEG tube placement. pt remains intubated and in the ICU in critical condition with little improvement in his condition 03/22/2018 pt is stutus PEG placement and tracheostomy , he was started on feeding. pt is been weaned off his fentanyl and sedatives to see if this would help in weaning him of the vent , in the same time pt remains to be treated with zosyn and levaquin for his Pseudomonas in sputum culture Review of system: None applicable Medication: Albuterol, artificial tears, Pulmicort, chlorhexidine, Pepcid, fentanyl citrate, formoterol fumarate, heparin, Levaquin, Atrovent, Solu-Medrol , Levophed, Zosyn, propofol Objective - Vital Signs Vital signs: Vital Signs Temp 98.2 F 03/22/18 16:00 Pulse 104 H 03/22/18 19:39 Resp 23 03/22/18 19:00 BP 132/80 03/17/18 23:30 Pulse Ox 96 03/22/18 19:00 Intake & Output 03/22/18 03/22/18 03/23/18 06:59 18:59 06:59 Intake Total 1055.4 1712.741 158 Output Total 1020 910 100 Balance 35.4 802.741 58 Weight 74 kg Intake: IV 961 1061 78 Piperacillin-Tazobactam 3 100 200 .375 gm In Sodium Chloride 0.9% 100 ml @ 25 mls/hr IVPB Q8HR [facility] Rx# :[id number] Pressure Bag 36 36 3 Sodium Chloride 0.9% 1, 825 825 75 000 ml @ 75 mls/hr IV . [id number] [facility] Rx#:[id number] Intake, IV Titration 94.4 461.741 50 Amount Cisatracurium 200 mg In 200 Sodium Chloride 0.9% 180 ml @ 1 MCG/KG/MIN 4.44 mls/hr IV .Q24H [facility] Rx#: [id number] Clevidipine Butyrate 25 50 mg In Empty Bag 1 bag @ 1 MG/HR 2 mls/hr IV .Q24H [facility] Rx#:[id number] Propofol 1,000 mg In 179.291 Empty Bag 1 bag @ Titrate IV .Q0M [facility] Rx#: [id number] fentaNYL (PF) 1,000 mcg 94.4 82.45 In Sodium Chloride 0.9% 80 ml @ 60 MCG/HR 6 mls/ hr IV .[id number] [facility] Rx#: [id number] Tube Feeding 160 30 Other 30 Output: Urine 1020 910 100 Other: Voiding Method Indwelling Catheter Indwelling Catheter ABP, PAP, CO, CI - Last Documented Arterial Blood Pressure 150/70 - Exam -GENERAL: The patient is intubated and sedated HEENT: Pupils are round and equally reacting to light. EOMI. No scleral icterus. No conjunctival pallor. Normocephalic, atraumatic. No pharyngeal erythema. No thyromegaly. CARDIOVASCULAR: S1 and S2 present. No murmurs, rubs, or gallops. -PULMONARY: Chest is clear to auscultation, scattered wheezing ABDOMEN: Soft, nontender, nondistended, normoactive bowel sounds. No palpable organomegaly. MUSCULOSKELETAL: No joint swelling or deformity. EXTREMITIES: No cyanosis, clubbing, or pedal edema. NEUROLOGICAL: Gross neurological examination did not reveal any focal deficits. SKIN: No rashes. - Labs CBC & Chem 7: 03/22/18 05:00 03/22/18 05:00 Labs: Abnormal Lab Results - Last 24 Hours (Table) 03/21/18 03/22/18 03/22/18 Range/Units 23:59 05:00 05:00 RBC 3.73 L (4.30-5.90) m/uL Hgb 11.5 L (13.0-17.5) gm/dL Hct 35.6 L (39.0-53.0) % Plt Count 132 L (150-450) k/uL Lymphocytes # 0.2 L (1.0-4.8) k/uL ABG pCO2 (35-45) mmHg ABG pO2 (83-108) mmHg ABG HCO3 (21-25) mmol/L ABG Total CO2 (19-24) mmol/L ABG O2 Saturation (94-97) % Carbon Dioxide 38 H (22-30) mmol/L BUN 24 H (9-20) mg/dL Creatinine 0.42 L (0.66-1.25) mg/dL Glucose 124 H (74-99) mg/dL POC Glucose (mg/dL) 108 H (75-99) mg/dL Calcium 7.4 L (8.4-10.2) mg/dL Magnesium 2.5 H (1.6-2.3) mg/dL AST 6 L (17-59) U/L Alkaline Phosphatase 34 L (38-126) U/L Total Protein 4.3 L (6.3-8.2) g/dL Albumin 2.1 L (3.5-5.0) g/dL 03/22/18 03/22/18 03/22/18 Range/Units 07:44 11:56 18:17 RBC (4.30-5.90) m/uL Hgb (13.0-17.5) gm/dL Hct (39.0-53.0) % Plt Count (150-450) k/uL Lymphocytes # (1.0-4.8) k/uL ABG pCO2 66 H (35-45) mmHg ABG pO2 64 L (83-108) mmHg ABG HCO3 39 H (21-25) mmol/L ABG Total CO2 41 H (19-24) mmol/L ABG O2 Saturation 92.0 L (94-97) % Carbon Dioxide (22-30) mmol/L BUN (9-20) mg/dL Creatinine (0.66-1.25) mg/dL Glucose (74-99) mg/dL POC Glucose (mg/dL) 106 H 163 H (75-99) mg/dL Calcium (8.4-10.2) mg/dL Magnesium (1.6-2.3) mg/dL AST (17-59) U/L Alkaline Phosphatase (38-126) U/L Total Protein (6.3-8.2) g/dL Albumin (3.5-5.0) g/dL Assessment and Plan Assessment: acute hypoxic respiratory failure severe and advance copd [facility]-acquired pneumonia with pseudomonas. s/p mechanical ventilation granuloma leukocytosis , mostly reactive secondary to steroids Plan: pt remains in the icu and been followed by critical care team . c/w emperic antibiotic, breathing treatment and steroids Labs and medication were reviewed.. Continue same treatment. Continue with symptomatic treatment. Resume home medication. Monitor lytes and vitals. DVT and GI prophylaxis. Further recommendations of the clinical course of the patient DVT prophylaxis: Subcutaneous heparin GI Prophylaxis: Pepcid Prognosis is guarded
[2018-03-22] MEDS: METOPROLOL TARTRATE 25 MG TAB PEG/G-TUBE SCH (21:35)
[2018-03-22] MEDS: IPRATROPIUM-ALBUTEROL 3 ML NEB INHALATION PRN (23:15)
[2018-03-22 23:45] LABS: Glucose,Whole Blood 117 mg/dL (75-99)
[2018-03-23] MEDS: INSULIN ASPART (NovoLOG) 100 UNIT/ML VIAL SQ SCH ×2 (00:07→06:46)
[2018-03-23] MEDS: methylPREDNISolone SOD SUCCI 125 MG/2 ML VIAL IV SCH ×3 (00:10→12:28)
[2018-03-23] MEDS: HEPARIN SODIUM,PORCINE 5,000 UNIT/ML 1 ML VIAL SQ SCH ×2 (00:10→08:28)
[2018-03-23] MEDS: PIPERACILLIN-TAZOBACTAM 3.375 GM in SODIUM CHLORIDE 0.9% 100 ML IVPB SCH ×2 (00:10→08:27)
[2018-03-23] MEDS: HYDROmorphone 1 MG/ML 1 ML SYRINGE IVP PRN ×3 (00:14→12:29)
[2018-03-23] MEDS: CLEVIDIPINE BUTYRATE 25 MG in EMPTY BAG 1 BAG IV SCH ×8 (00:30→12:42)
[2018-03-23] MEDS: IPRATROPIUM-ALBUTEROL 3 ML NEB INHALATION PRN (03:11)
--- NOTE | 2018-03-23 03:59 | CT ---
EXAM: CT Head Without Intravenous Contrast CLINICAL HISTORY: ITS.REASON CT Reason: decreased mentation TECHNIQUE: Axial computed tomography images of the head/brain without intravenous contrast. CTDI is 49 mGy and DLP is 1100 mGy-cm. This CT exam was performed using one or more of the following dose reduction techniques: automated exposure control, adjustment of the mA and/or kV according to patient size, and/or use of iterative reconstruction technique. COMPARISON: No relevant prior studies available. FINDINGS: Brain: No hemorrhage or mass effect. 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 Ventricles: No hydrocephalus. Mild cerebral volume loss. Bones/joints: Unremarkable. Soft tissues: Unremarkable. Sinuses: Unremarkable. Mastoid air cells: Clear. IMPRESSION: No acute hemorrhage, hydrocephalus, or mass effect. 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
[2018-03-23 04:52] LABS: ALT 42 U/L (21-72); AST 21 U/L (17-59); Alkaline Phosphatase 49 U/L (38-126); Anion Gap 4 mmol/L; Blood Urea Nitrogen 35 mg/dL (9-20); Calcium 8.2 mg/dL (8.4-10.2); Carbon Dioxide 37 mmol/L (22-30); Chloride 108 mmol/L (98-107); Glucose 171 mg/dL (74-99); Magnesium 2.6 mg/dL (1.6-2.3); Phosphorus 2.5 mg/dL (2.5-4.5); Potassium 4.1 mmol/L (3.5-5.1); Sodium 149 mmol/L (137-145); Total Bilirubin 0.8 mg/dL (0.2-1.3); Total Protein 5.9 g/dL (6.3-8.2)
[2018-03-23 05:02] LABS: Basophils # (A) 0.1 k/uL (0-0.2); Basophils % (A) 1 %; Eosinophils # (A) 0.1 k/uL (0-0.7); Eosinophils % (A) 1 %; Hypochromasia Slight; Lymphocytes # (A) 0.2 k/uL (1.0-4.8); Lymphocytes % (A) 2 %; MCH 30.7 pg (25.0-35.0); MCHC 32.6 g/dL (31.0-37.0); MCV 94.1 fL (80.0-100.0); Mean Platelet Volume 7.1; Monocytes # (A) 0.3 k/uL (0-1.0); Monocytes % (A) 3 %; Neutrophils # (A) 9.2 k/uL (1.3-7.7); Neutrophils % (A) 94 %; Platelet Count 175 k/uL (150-450); RBC 4.89 m/uL (4.30-5.90); RDW 15.1 % (11.5-15.5); WBC 9.8 k/uL (3.8-10.6)
[2018-03-23 06:03] LABS: Glucose,Whole Blood 157 mg/dL (75-99)
[2018-03-23] MEDS: SODIUM CHLORIDE 0.9% 1,000 ML IV SCH (06:48)
[2018-03-23] MEDS: FORMOTEROL FUMARATE 20 MCG/2 ML NEBU INHALATION SCH (07:22)
[2018-03-23] MEDS: BUDESONIDE 0.5 MG/2 ML NEBU INHALATION SCH (07:22)
[2018-03-23] MEDS: IPRATROPIUM-ALBUTEROL 3 ML NEB INHALATION SCH ×2 (07:22→11:33)
--- NOTE | 2018-03-23 07:44 | XR ---
EXAMINATION TYPE: XR chest 1V portable DATE OF EXAM: 03/23/2018 COMPARISON: 03/22/2018 HISTORY: SOB, Follow Up FINDINGS: Indwelling tubes and catheters are unchanged. No change in bibasilar opacities. Stable appearance of the cardio-mediastinal structures at this time. Pleural effusion unchanged. IMPRESSION: 1. Stable portable chest. Clinical correlation and follow up until resolution is recommended.
[2018-03-23] MEDS: CHLORHEXIDINE GLUCONATE 15 ML CUP MUCOUS MEM SCH (08:28)
[2018-03-23] MEDS: FAMOTIDINE 20 MG/2 ML VIAL IV SCH (08:28)
[2018-03-23] MEDS: METOPROLOL TARTRATE 25 MG TAB PEG/G-TUBE SCH (08:28)
[2018-03-23 08:30] LABS: ABG Base Excess 15.2 mmol/L; ABG HCO3 38 mmol/L (21-25); ABG Oxygen Saturation 96.2 % (94-97); ABG PCO2 49 mmHg (35-45); ABG PH 7.51 (7.35-7.45); ABG PO2 75 mmHg (83-108); ABG TCO2 40 mmol/L (19-24)
--- NOTE | 2018-03-23 12:00 | P.PN ---
Progress Note - Text Progress Note Date: 03/23/18 this is a brief note on the communication that went on today between myself and the son as well as the daughter at bedside. As I walked into the room to evaluate the patient this morning, the son was extremely agitated, and he basically is doubting the care we have been delivering to his father. His accusations are I am not communicating with him on a regular basis, although I have communicated with the son every day I rounded if he happens to be at bedside.. Sometimes even communicated with him twice or 3 times per day. And he has been updated on his dad's condition. In the last few days we have talked about the issue of his respiratory failure the issue of his mechanical ventilation the issue of his underlying COPD, the issue of his Pseudomonas pneumonia and the issue of need for tracheostomy and PICC line as well as PEG tube placement. When the patient was admitted, patient was seen by Dr. Gardiner and he treated him with bronchodilators and antibiotics/ Zithromax.he also received bronchodilators and steroids. Apparently on Sunday night patient failed BiPAP and he required intubation and mechanical ventilation. When I saw him Sunday patient was requiring significant amount of sedation including propofol and fentanyl because he was asynchronous with the ventilator, and he was high pressuring the mechanical ventilator. To the point we had to use Nimbex on this patient to be able to ventilate him properly. As soon as the sputum came back showing Pseudomonas, patient was switched from Zithromax to Levaquin and Zosyn. And he has been on these antibiotics all along shortly after he was intubated. I have also communicated with the son regarding the need for early tracheostomy and PEG tube placement realizing that the patient clearly has severe underlying COPD, and he will be an extremely difficult to wean from mechanical ventilation.. We discussed the pros and cons of early tracheostomy versus late tracheostomy, also discussed the fact that the patient could become more comfortable with a tracheostomy compared to endotracheal tube. And at times,may make the weaning bit easier. Son agreed to tracheostomy and PEG tube placement as well as PICC line. These issues were actually discussed on a daily basis with the son. And every morning the son had at least half dozen questions regarding his dad's condition and his questions were answered to his satisfaction. Since tracheostomy, we were able to discontinue Nimbex and kept him on propofol and fentanyl. Over the last 24 hours both were discontinued to start at least weaning trials. Patient was noted to remain unresponsive to painful and verbal stimuli in spite of holding narcotics and sedatives for the last 24 hours. Although he was receiving intermittently Ativan and Dilaudid for extreme agitation as needed on mechanical ventilation. Early this morning is CT of the brain was done and showed no evidence of acute infarct or acute bleed. And this was also conveyed to the son and daughter this morning. However for some reason the son still believes that I have not been communicating with him on a regular basis regarding his dad's condition and that is definitely not true.I have no idea what the son is lying about the issue of communication with him, although I have communicated with him more than any other family member in the [facility] intensive care unit on a daily basis. He even mentioned to me that he is not certain that we are doing the proper things for his dad. And he is doubting the medical care we are delivering. At this point in time I gave the son the option of having another opinion/another roulette dealer could come in and take over the case. I also gave him the option of sending his dad to a tertiary care center of his choice. He threatened to tell the DISCOUNT CLERK about the medical care that his dad has been receiving and the fact that he is not happy with the care. He agreed to have his dad transferred to [facility]. Hence I contacted the transfer team and I have given report to the intensive care unit fellow at [facility], and we will make arrangements for the patient to be transferred to [facility] as soon as a bed becomes available. He was already approved for transfer. The son walked out of the room and he seemed to be quite upset. however the daughter seems to be calmer, and she was updated on the transfer plans to [facility]. The son is apparently upset because I told him that his dad had COPD and not asthma based on the clinical history. He was more convinced that his dad had asthma although the clinical history andhis CT of the chest clearly point to significant emphysematous changes on admission and again there was no evidence of pneumonia on the CT of the chest when he presented to the ER. The pneumonia was noted couple of days later and antibiotics were switched to Levaquin and Zosyn to have excellent coverage for pseudomonas aeruginosa. And this was based on the fact that the sputum did show evidence of pseudomonas aeruginosa.on the chest x-ray did show infiltrates which were not present initially on the CT of the chest on presentation.
[2018-03-23 12:21] LABS: Glucose,Whole Blood 168 mg/dL (75-99)
--- NOTE | 2018-03-23 12:44 | P.PN ---
Subjective Progress Note Date: 03/23/18 Principal diagnosis: Acute hypoxic and hypercapnic respiratory failure secondary to COPD exacerbation.and Pseudomonas pneumonia involving both lower lobes. This is a 68-year-old male patient with known history of COPD [place] any more than approximately 4 years ago. Since then he has not seen a pipe finishing supervisor. The patient has advanced COPD. The patient has been oxygen dependent for many years. He has been on a combination of Advair and Incrus regarding his COPD and utilizes albuterol rescue inhaler on an as-needed basis. He is known to have ulcerative colitis and he has received several bouts of systemic steroids on outpatient basis regarding his colitis. He is not take any form of biologic agents or maintenance agents regarding his inflammatory bowel disease. 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 He claims that he quit smoking approximately a month ago. He came into the hospital because of increased cough , chest congestion, chest tightness and wheezing and he was in considerable amount of respiratory distress at time of arrival. He was placed on BiPAP at a pressure of 12/6 cm of water and FiO2 of 40%. He is feeling better. Is less short of breath. At the time of my arrival, he was still a mild degree of respiratory distress although reported that his condition was improving. Blood gases was done in emergency department with an FiO2 of 50% while him being on a BiPAP and the pH was at 7.36 with a pCO2 of 43 and pO2 of 188. Chest x-ray shows COPD and the CAT scan of the chest showed no evidence of any pulmonary embolism. 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 There was coronary calcifications. There is extensive amount of emphysematous changes bilaterally. No nausea. No vomiting. No abdominal pain. No altered mentation. No angina. No palpitation. No cardiac rhythm disturbance. On 03/17/2018, the patient continues to be quite short of breath secondary to his underlying COPD exacerbation. His requiring BiPAP for respiratory support. Despite being aggressively treated with a combination of bronchodilators steroids and antibiotics, the patient continues to BE short of breath and he has a very limited exercise capacity as the patient gets short of breath even being moved to a bedside commode. No chest pain. No nausea or vomiting. No altered mentation. Chest x-ray shows atelectatic changes in the right lung base. There is a left upper lobe nodular density which is a calcified granuloma. No fever. No chills. No leukocytosis. No other complaints otherwise. He remains on IV heparin. On 03/18/2018, I'm seeing the patient for follow-up, and apparently last night, his respiratory condition deteriorated, patient was noted to be profoundly short of breath, and he was using his accessory muscles in spite of being on BiPAP. Hence the patient was intubated, and he is now on mechanical ventilation. His ventilator settings are assist control rate of 24 tidal volume of 400 FiO2 of 35% and PEEP of 5. Patient is also on propofol at 50 mcg/ kg/minute. Norepinephrine at 0.02 mcg/kg/m, patient is quite sedated, and I have no plans to interrupt sedation this morning since the patient was just extubated last night. His chest x-ray was reviewed, and it showed mostly bibasilar atelectasis. CBC showed leukocytosis with WBC count of 17.6 hemoglobin is 12 electrolytes were noted to be normal and normal renal profile noted. ABG this morning on 50% showed pO2 of 191 pCO2 of 45 pH of 7.43, hence his FiO2 was cut down to 35%. All his meds were reviewed, he is presently on DuoNeb, Zithromax, Pulmicort, Pepcid, Perforomist, heparin subcu, NovoLog insulin, methylprednisolone, lorazepam, propofol and norepinephrine. Patient was reevaluated today on 03/19/2018, remains in the ICU, mechanically ventilated, his ventilator settings are basically unchanged, remains on assist control rate of 24 FiO2 35%, tidal volume of 400 and PEEP of 5. Remains on A fall presently at 75 mcg/kg/m, he is also on fentanyl roughly about 25 g per hour. Slight drop in his sedation including cutting the propofol and fentanyl, patient became extremely agitated, he was struggling to breathe and he was noted to be asynchronous with the ventilator. Hence I had to sedate him again, and clearly the patient is not ready for any form of weaning at this point. Kept on a higher dose of propofol and her dose of fentanyl, he is presently off norepinephrine. Could not actually interrupt sedation enough to assess mental status today. Chest x-ray was reviewed, continues to show by basilar atelectasis, cannot rule out infiltrate/pneumonia. ABG this morning on the above settings showed a pO2 of 89 pCO2 of 46 pH of 7.43. CBC is showing leukocytosis with WBC 14.3 hemoglobin is 11.9. Electrolytes were noted to be normal, renal profile was noted to be normal. Meds were reviewed, remains on DuoNeb, Zithromax, heparin subcu, Solu-Medrol, Perforomist, and Pulmicort. Patient was reevaluated today on 03/20/2018. Remains in the ICU, remains on mechanical ventilation. Ventilator settings are basically about the same, he is on assist control rate of 24 tidal volume of 400, FiO2 35% and PEEP of 5. Remains on propofol, fentanyl, and today I had to add Nimbex patient became extremely agitated in spite of maximizing propofol and fentanyl. And he was completely asynchronous with the ventilator. And we got to the point where he was not being ventilated properly. I was at bedside all along, and recommended Nimbex which was given 10 mg bolus, and I have recommended adding a Nimbex drip. Family is at bedside, and I discussed his condition with his son and felt that the patient's condition is quite severe, and the patient will likely benefit from early tracheostomy. Yesterday we had a similar situation where in as soon as we cut down on the sedation, patient became extremely agitated, remained unresponsive, and he was basically not synchronous with the ventilator. Obviously the patient has severe underlying COPD, and I have noted some auto peeping. Recommended prolonging his expiratory phase mostly by increasing the flow rates, cutting the tidal volume, and cutting the rate. His expiratory phase had to be prolonged and now with the I: E ratio is 1:4. That is about the best way to a loud the patient to fully exhale and not develop auto PEEP. Chest x-ray now is showing by lateral infiltrates, and his sputum came back positive for Pseudomonas final sensitivity is pending. His ABG this morning showed a pO2 of 70 pCO2 of 48 pH of 7.43. Electrolytes were noted to be relatively normal CBC is relatively normal. Reevaluated today on 03/21/2018. Patient remains on mechanical ventilation in the intensive care unit. He is presently on a tidal volume of 400, assist control rate of 16, FiO2 of 35%, and PEEP of 5. ABG showed a pO2 of 81 pCO2 of 50 pH of 7.43. Patient is hemodynamically stable, not requiring any pressors. However he is on fentanyl at 50 g per hour, Nimbex, propofol at 55 mcg/kg/m. Patient is going for tracheostomy today, initially his son was reluctant to agree to proceed with tracheostomy, however he changed his mind and agreed to it to be done this week. General surgery was consulted, and the patient may have his tracheostomy and PEG tube placement later today. In the meantime his tube feeding is on hold. All his labs were reviewed including CBC, basic metabolic profile, renal profile. And I have made adjustments on his ventilator settings. Plan to keep him on propofol fentanyl and Nimbex, will likely start addressing weaning trials in the next 24 hours hopefully his tracheostomy will be done today. Chest x-ray is showing worsening lateraldisease, and his sputum was positive for Pseudomonas pneumonia. Obviously his pneumonia is secondary to Pseudomonas aeruginosa. Reevaluated today on 03/22/2018, patient remains on mechanical ventilation off Nimbex this morning, remains on propofol and fentanyl, and I'm planning to gradually discontinue both to the point he could arouse the patient, and hopefully address his mental status today. As we cut down on the dose, patient became a bit agitated, and his blood pressure was noted to be elevated, hence I will recommend clevidipine drip for blood pressure. We will continue to titrate his fentanyl and propofol accordingly. Son is at bedside, updated on his condition ventilator settings todaytidal volume of 450, assist control rate of 16 PEEP of 5 and FiO2 of 40%. Evidence of leak was noted around the tracheostomy site, hence the tidal volume was increased from 400-450 to make up for the volume loss. ABG this morning showed a pO2 of 64 pCO2 of 66 and pH of 7.39, and this is basically what I believe his baseline ABG is normally.chest x- ray showed bibasilar infiltrates consistent with pneumonia cultures were noted to be positive for pseudomonas aeruginosa . Reevaluated today on 03/23/2018, patient remains on mechanical ventilation, basically same ventilator settings with assist control rate of 16 tidal volume of 450, PEEP of 5, and FiO2 is 40%.ABG showed a pO2 of 75 pCO2 of 49 pH of 7.51. I believe the normal pCO2 for this patient is normally in the 60s. However the patient has been off propofol and fentanyl, and we are trying to wake him up, and addressed mental status today. He even had a CT of the brain this morning and it showed no acute process. No bleed, no infarct. All his labs were reviewed, and his sodium was noted. Bit high at 149, hence will switch the main IV fluid to D5 W and possibly use free water flushes via the PEG tube. However as soon as I walk into the room, his son was accusing me of not communicating with him although I have and I have talked to him every day he was available at bedside in the morning during rounds. Sometimes I have even talk to him 2 or 3 times per day while I was rounding in the ICU and updating him on his dad's condition. At any rate please refer to separate note regarding my communication with the son. In the meantime patient is hemodynamically stable, not requiring any pressors. And I was planning to continue to hold all narcotics and sedatives until I get a good idea about his mental status today. But plans are now being made to transfer the patient to [facility]. And I have taken the responsibility of calling the intensive care unit fellow at [facility], and we'll arrange for transfer based on his son's and his daughter's request. They both have doubts about the medical care we are delivering. And for some reason the son keeps saying that his dad was fine until he arrived to the hospital he became much worse. And he is blaming that on the care that he has been receiving. That's when the option was given to the son to consider transfer or to consider another pipe finishing supervisor/ underwater photographer to see his dad instead of my group. He chose transfer. Objective - Vital Signs Vital signs: Vital Signs Temp 98.7 F 03/23/18 08:00 Pulse 98 03/23/18 11:33 Resp 22 03/23/18 11:00 BP 132/80 03/17/18 23:30 Pulse Ox 94 L 03/23/18 11:00 Intake & Output 03/22/18 03/23/18 03/23/18 18:59 06:59 18:59 Intake Total 9478.952 2480.800 957.4 Output Total 910 1225 955 Balance 802.741 137.800 2.4 Weight 74 kg 76 kg Intake: IV 1061 786 493 Levofloxacin 750Mg-D5w 150 Pmx 750 mg In Dextrose/ Water 1 150ml.bag @ 100 mls/hr IVPB Q24H [facility] Rx#: [id number] Piperacillin-Tazobactam 3 200 100 .375 gm In Sodium Chloride 0.9% 100 ml @ 25 mls/hr IVPB Q8HR [facility] Rx# :[id number] Pressure Bag 36 36 18 Sodium Chloride 0.9% 1, 825 600 375 000 ml @ 75 mls/hr IV . [id number] [facility] Rx#:[id number] Intake, IV Titration 461.741 216.800 114.4 Amount Cisatracurium 200 mg In 200 Sodium Chloride 0.9% 180 ml @ 1 MCG/KG/MIN 4.44 mls/hr IV .Q24H [facility] Rx#: [id number] Clevidipine Butyrate 25 216.800 114.4 mg In Empty Bag 1 bag @ 1 MG/HR 2 mls/hr IV .Q24H [facility] Rx#:[id number] Propofol 1,000 mg In 179.291 Empty Bag 1 bag @ Titrate IV .Q0M [facility]JA Rx#: [id number] fentaNYL (PF) 1,000 mcg 82.45 In Sodium Chloride 0.9% 80 ml @ 60 MCG/HR 6 mls/ hr IV .[id number] [facility]JA Rx#: [id number] Tube Feeding 160 360 260 Other 30 90 Output: Urine 910 1225 955 Other: Voiding Method Indwelling Catheter Indwelling Catheter Indwelling Catheter ABP, PAP, CO, CI - Last Documented Arterial Blood Pressure 150/69 - Exam Physical Exam: Revealed a 68-year-old white male,on mechanical ventilation via tracheostomy, unresponsive to verbal or painful stimuli. His last dose of narcotics and sedatives given around 5 AM this morning. Head: Atraumatic normocephalic. HEENT:[Neck is supple.] [No neck masses.] [No thyromegaly.] [No JVD.] PERRLA, EOMI, tracheostomy seems to be intact.minimal leak noted around the tracheostomy site. Roughly around 50 mL tidal volume. Chest: [Crackles and rhonchi and wheezes bilaterally, more so at the bases. Symmetrical chest expansion. No chest wall tenderness.] Cardiac Exam: [Normal S1 and S2, no S3 gallop, no murmur.] Abdomen: [Soft, nontender, no megaly, no rebound, no guarding, normal bowel sounds.] Extremities: [No clubbing, 1+ bipedal edema, edema was also noted in the forearms bilaterally no cyanosis.] There is evidence of right above-knee amputation noted to Neurological Exam: unresponsive to verbal or painful stimuli hence I was planning to hold narcotics and sedatives completely for the next 24 hours. Psychiatric: cannot be addressed. Lymphatics: No lymphadenopathy. Skin: No rashes. Except areas of ecchymosis noted in upper extremities with edema. - Labs CBC & Chem 7: 03/23/18 04:19 03/23/18 04:19 Labs: Abnormal Lab Results - Last 24 Hours (Table) 03/22/18 03/22/18 03/23/18 Range/Units 18:17 23:43 04:19 Neutrophils # 9.2 H (1.3-7.7) k/uL Lymphocytes # 0.2 L (1.0-4.8) k/uL ABG pH (7.35-7.45) ABG pCO2 (35-45) mmHg ABG pO2 (83-108) mmHg ABG HCO3 (21-25) mmol/L ABG Total CO2 (19-24) mmol/L Sodium (137-145) mmol/L Chloride (98-107) mmol/L Carbon Dioxide (22-30) mmol/L BUN (9-20) mg/dL Creatinine (0.66-1.25) mg/dL Glucose (74-99) mg/dL POC Glucose (mg/dL) 163 H 117 H (75-99) mg/dL Calcium (8.4-10.2) mg/dL Magnesium (1.6-2.3) mg/dL Total Protein (6.3-8.2) g/dL Albumin (3.5-5.0) g/dL 03/23/18 03/23/18 03/23/18 Range/Units 04:19 06:01 08:28 Neutrophils # (1.3-7.7) k/uL Lymphocytes # (1.0-4.8) k/uL ABG pH 7.51 H (7.35-7.45) ABG pCO2 49 H (35-45) mmHg ABG pO2 75 L (83-108) mmHg ABG HCO3 38 H (21-25) mmol/L ABG Total CO2 40 H (19-24) mmol/L Sodium 149 H (137-145) mmol/L Chloride 108 H (98-107) mmol/L Carbon Dioxide 37 H (22-30) mmol/L BUN 35 H (9-20) mg/dL Creatinine 0.34 L (0.66-1.25) mg/dL Glucose 171 H (74-99) mg/dL POC Glucose (mg/dL) 157 H (75-99) mg/dL Calcium 8.2 L (8.4-10.2) mg/dL Magnesium 2.6 H (1.6-2.3) mg/dL Total Protein 5.9 L (6.3-8.2) g/dL Albumin 3.0 L (3.5-5.0) g/dL 03/23/18 Range/Units 12:17 Neutrophils # (1.3-7.7) k/uL Lymphocytes # (1.0-4.8) k/uL ABG pH (7.35-7.45) ABG pCO2 (35-45) mmHg ABG pO2 (83-108) mmHg ABG HCO3 (21-25) mmol/L ABG Total CO2 (19-24) mmol/L Sodium (137-145) mmol/L Chloride (98-107) mmol/L Carbon Dioxide (22-30) mmol/L BUN (9-20) mg/dL Creatinine (0.66-1.25) mg/dL Glucose (74-99) mg/dL POC Glucose (mg/dL) 168 H (75-99) mg/dL Calcium (8.4-10.2) mg/dL Magnesium (1.6-2.3) mg/dL Total Protein (6.3-8.2) g/dL Albumin (3.5-5.0) g/dL Assessment and Plan Assessment: Impression: 1 acute hypoxic and hypercapnic respiratory failure secondary to acute exacerbation of COPD. requiring intubation and mechanical ventilation.patient failed BiPAP and required intubation on late Sunday. 2 failed BiPAP therapy, requiring mechanical ventilation. 3 advanced COPD with chronic hypoxic respiratory failure 4 left upper lobe calcified granuloma 5 minimal troponin leak, felt to be not clinically significant. 6 history of inferior vena cava filter placement, questionable history of pulmonary embolism or DVT. 7 history of right above-knee amputation 8 history of tobacco dependence syndrome. 9 bilateral pneumonia secondary to pseudomonas aeruginosa presently on Zosyn and Levaquin. his initial CT of the chest did not reflect any pneumonic process and he was all along on Zithromax given to him by Dr. Gardiner. 10 status post tracheostomy,and PEG tube placement postoperative day #2 this was done because patient was felt to be extremely difficult to wean because of his underlying COPD and extensive pneumonia involving lower lobe.my clinical impression from the very beginning that the patient will have a long course of mechanical ventilation only because he was requiring significant amount of sedation narcotics, and at one point Nimbex was given to be able to ventilate him properly. Recommendation: continue mechanical ventilation via tracheostomy, ventilator settings were noted. discontinue all narcotics and sedatives for the next 24 hours until we can assess mental status.. Continue antibiotics to cover for pseudomonas aeruginosa and he is presently on Levaquin and Zosyn. Continue nutritional support via PEG tube feeding. Patient had a PEG tube placed on 03/21. Continue GI and DVT prophylaxis. Bronchodilators. Daily assessment of mental status and weaning trials if possible. today I had a long discussion with his son and his daughter, they were both updated on his condition and went through all the events from the time he was admitted until now. For some reason the son seems to think that his father was fine until he presented to the hospital and has been going downhill since then. He also felt that his father never had COPD and it was all asthma. Although I explained to him the difference between COPD and asthma during the first time I met him and explained to him that his dad truly has severe COPD. Treatment for both is the same, however asthma usually responds and reverses significantly. However COPD does not respond to treatment as well as asthma does. Considering that the son is suspicious about the quality of the medical care we are delivering, and he is throwing accusations, and threats, he was given the option of having another team take care of his dad or consider transfer to a tertiary care facility. We all agreed to transfer the patient to [facility], arrangements were made report was given to the medical intensive care unit fellow at [facility], patient was accepted for transfer. And he will be transferred as soon as a bed becomes available.critical care time is 40 minutes Time with Patient: Greater than 30
[2018-03-23 13:03] VITALS: PULSE 99; RESP 24; TEMP 97.9
== END 2018-03-23 13:39 | disposition short-term general hospital (02) | DRG 4 ==
LOC: EC 15:44 → 2SICU 21:33
PROVIDERS: ADMIT Hospitalist; ATTEND Hospitalist
PROC: 5A1955Z Respiratory Ventilation, Greater than 96 Consecutive Hours (ICD-10-PCS; principal; 2018-03-17)
PROC: 0BH17EZ Insertion of Endotracheal Airway into Trachea, Via Natural or Artificial Opening (ICD-10-PCS; 2018-03-17)
PROC: 02H633Z Insertion of Infusion Device into Right Atrium, Percutaneous Approach (ICD-10-PCS; 2018-03-20)
PROC: 5A09457 Assistance with Respiratory Ventilation, 24-96 Consecutive Hours, Continuous Positive Airway Pressure (ICD-10-PCS; 2018-03-21)
PROC: 0DH63UZ Insertion of Feeding Device into Stomach, Percutaneous Approach (ICD-10-PCS; 2018-03-21)
PROC: 0B113F4 Bypass Trachea to Cutaneous with Tracheostomy Device, Percutaneous Approach (ICD-10-PCS; 2018-03-21 14:24)
DX: J96.21 Acute and chronic respiratory failure with hypoxia (principal); J15.1 Pneumonia due to Pseudomonas; J98.11 Atelectasis; E87.2 Acidosis; J44.0 Chronic obstructive pulmonary disease with (acute) lower respiratory infection; J44.1 Chronic obstructive pulmonary disease with (acute) exacerbation; J93.82 Other air leak; K51.90 Ulcerative colitis, unspecified, without complications; M62.82 Rhabdomyolysis; J96.22 Acute and chronic respiratory failure with hypercapnia; I71.2 Thoracic aortic aneurysm, without rupture; J84.10 Pulmonary fibrosis, unspecified; T38.0X5A Adverse effect of glucocorticoids and synthetic analogues, initial encounter; G89.29 Other chronic pain; M51.36 Other intervertebral disc degeneration, lumbar region; D72.829 Elevated white blood cell count, unspecified; R77.9 Abnormality of plasma protein, unspecified; Z99.81 Dependence on supplemental oxygen; Z89.611 Acquired absence of right leg above knee; Z86.718 Personal history of other venous thrombosis and embolism; Z79.899 Other long term (current) drug therapy; Z88.1 Allergy status to other antibiotic agents; Z88.8 Allergy status to other drugs, medicaments and biological substances; Z79.51 Long term (current) use of inhaled steroids; Z87.891 Personal history of nicotine dependence; Z84.89 Family history of other specified conditions; Z82.49 Family history of ischemic heart disease and other diseases of the circulatory system; Y95 Nosocomial condition
CPT/HCPCS: 36415; 36573; 36600; 43246; 70450; 71045; 71275; 80048; 80053; 82550; 82553; 82803; 82805; 83605; 83735; 83880; 84100; 84484; 85025; 85379; 85610; 85730; 87070; 87077; 87186; 87205; 87502; 93005; 93306; 94002; 94003; 94640; 94660; 96365; 96366; 96367; 96375; 96376; 99291